=== PATIENT | male | born 1950 | race African-American/Black ===

== ENCOUNTER → 2021-06-09 | Day surgery (SDC) | payer OTHER ==
--- NOTE | 2021-06-09 13:04 | RAD REPORT ---
EXAM DESCRIPTION: US - Breast Core BX w/US Guidance - 06/09/2021 10:06 am CLINICAL HISTORY: ICD C50.929 COMPARISON: ultrasound May 2021 TECHNIQUE: The risks, benefits alternatives to the procedure were explained to the patient and infor med consent obtained. Skin, subcutaneous and breast tissues anesthetized with lidocaine. Under sonographic guidance, a 17 gauge needle was placed into the left breast mass. An 18 gauge needl e was then placed through this. Three 1 centimeter core specimens were obtained Tissue given to pathology. Subsequently a localizing clip was placed into the mass. Patient experienced no immediate complication IMPRESSION: Core biopsies of a left breast mass
== END ==
LOC: DS 10:00
PROVIDERS: ATTEND Internal Medicine
DX: C50.922 Malignant neoplasm of unspecified site of left male breast (principal); Z17.0 Estrogen receptor positive status [ER+]
CPT/HCPCS: 19083; 88305

== ENCOUNTER 2022-03-09 15:42 | Emergency (ER) | payer OTHER ==
--- OUTSIDE RECORDS SUMMARY | 2022-03-09 15:58 | XMS REPORT | Clinical Summary ---
:1950 Author Organization [facility] MD Lea [facility] Address [address] [place] [address] Care Team Providers Name Role Phone Bautista Bergeron MD Unavailable [phone] Sasha Brown MD Primary Care Provider Ann Rodriguez MD Unavailable [phone] Mara Wolf MD Unavailable Mack Osorio MD Primary Care Provider Allergies Active Allergy Reactions Severity Noted Date Comments Gabapentin Other (See Comments) 12/13/2016 dizzine ss dizziness Medications Medication Sig Dispensed Refills Start Date End Date Status aspirin 81 mg EC Take 81 mg by 0 Active tablet mouth daily. atorvastatin Take 1 tablet 0 05/23/2021 Ac tive (LIPITOR) 10 mg by mouth tablet daily. glimepiride Take by mouth 0 05/18/2021 Act annel (AMARYL) 4 mg daily. tablet Patient takes 1 tab in the AM and 1 tabs in PM olmesartan-hydroch Take 1 tablet 0 06/16/2021 Active lorothiazide by mouth (BENICAR HCT) daily. 20-12.5 mg per tablet ascorbic acid, Take 1,000 mg 0 A ctive vitamin C, by mouth (vitamin C) 1000 daily. mg tablet omeprazole Take 20 mg by 0 Activ e (PriLOSEC) 20 mg mouth every capsule morning before breakfast. TURMERIC ORAL Take 1 tablet 0 Ac tive by mouth daily. traMADol (ULTRAM) Take 1 tablet 30 tablet 0 07/13/2021 Active 50 mg (50 mg) by tabletIndications: mouth every 6 Infiltrating duct (six) hours carcinoma, NOS of as needed for overlapping lesion severe pain. of breast <Male; Left> tamoxifen Take 1 tablet 90 tablet 3 08/14/2021 Activ e (NOLVADEX) 20 mg (20 mg) by tabletIndications: mouth daily. 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; Left>; Oncology MD Mack Estrogen recept or positive status (ER+) 03/03/2022 Hospital Encounter Lab Jo, Infiltrat ing duct carcinoma, 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; Left>; MD Mack Estrogen recept or positive status (ER+) 03/03/2022 Travel 08/14/2021 Orders Only Breast Steph Augustine ptor positive status (ER+) (Primary Dx); Oncology COLT Jiang Infiltrating du ct carcinoma, 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; Left> 08/12/2021 Telemedicine Breast Medical Steph Osorio ptor positive status (ER+) (Primary Dx); Oncology MD Mack Infiltrating du ct carcinoma, 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; Left> 08/12/2021 Orders Only Breast Medical Abena Flores RPH 08/11/2021 Telephone Breast Medical Alessio, Oncology Kathleen Cornejo RN 08/03/2021 Hospital Encounter Kristie red, Lanny Dumont MD 07/30/2021 Hospital Encounter Dawood Gotti MD 07/29/2021 Telemedicine Breast Medical Jo, Infiltrating duct Oncology MD Mack carcinoma, NOS of overlapping les ion of breast <Male ; Left> 07/28/2021 Hospital Encounter Lab Chely, Infiltra ting duct Natalie, LEIGH carcinoma, NOS of overlapping les ion of breast <Male ; Left> 07/28/2021 Office Visit Breast Surgical Mara Wolf, Infiltratin g duct Oncology carcinoma, NOS of overlapping les ion of breast <Male ; Left> 07/28/2021 Travel 07/26/2021 Telephone Genetics Jose Miguel, Genetic Director Of Outreach LEIGH Llanes Emily M 07/26/2021 Orders Only Genetics Radha Wilson du ct M carcinoma, NOS of overlapping les ion of breast <Male ; Left> (Primary Dx) 07/24/2021 Orders Only Breast Medical Jo, Infiltrating duct carcinoma, 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; Left> (Primary Dx); Oncology MD Mack Estrogen recept or positive status (ER+) 07/16/2021 Telemedicine Integrative Medicine Jennifer Brown, Dietary counseling and surveillance (Primary Dx); Infiltrating du ct carcinoma, 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; Left>; Exercise counse ling; Lack of physica l exercise; Obese; Intentional akosua ght loss; Type 2 diabetes mellitus well controlled; Postoperative p ain 07/15/2021 Telephone Seymour, Discharge Call Flip Cocrhan RN 07/15/2021 Telephone Integrative Medicine Ileana Rodriguez RN 07/13/2021 Anesthesia Event Joan Hickman MD Speer, Barbra B., 07/13/2021 Surgery Mara Wolf, Left TOTAL MD MASTECTOMY 07/13/2021 Ancillary Procedure Nona Domingo MD 07/13/2021 Hospital Encounter Radiology Svitlana Washington PA 07/13/2021 Hospital Encounter Gastrointestinal Mara Wolf, Infi ltrating duct - Surgery carcinoma, NOS of 07/14/2021 overlapping les ion of breast <Male ; Left> (Primary Dx) 07/13/2021 Orders Only Tracey Hayden MD 07/13/2021 Travel 07/12/2021 POEM Appointments Anesthesiology Sasha Brown MD 07/12/2021 Clinical Support Atilio Washington, Suspected C OVID-19 (Primary Dx); Svitlana, PA Infiltrating duct carcinoma, NOS of over lapping lesion of breast <Male; Left> Ashley Johnson RN 07/12/2021 Ancillary Procedure Radiology Svitlana Washington PA 07/12/2021 Ancillary Procedure Radiology Felix Infiltra ting duct Svitlana, PA carcinoma, NOS of overlapping les ion of breast <Male ; Left> 07/12/2021 Travel 07/07/2021 Office Visit Breast Surgical Maryann Mara, Infiltratin g duct Oncology carcinoma, NOS of overlapping les ion of breast <Male ; Left> 07/07/2021 Travel 07/05/2021 Lab Requisition Venu Ruiz MD Witson, Anne S., MD 07/01/2021 Anesthesia Event Anesthesiology Tracey Jean NP 07/01/2021 POEM Appointments Anesthesiology Sasha Brown MD 07/01/2021 Consult Internal Medicine Jose Miguel, [place] for preprocedural cardiovascular examination (Primary Dx); LEIGH Padilla Hypertension; Carlyle Scott, Dyslipidemia; Type 2 diabetes mellitus with hyperglycemia; Renal insuffici ency; Infiltrating du ct carcinoma, 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; Left> 07/01/2021 Travel 06/29/2021 Ancillary Procedure Radiology Sasha Brown MD 06/29/2021 Ancillary Procedure Radiology Sasha Brown MD 06/29/2021 Ancillary Procedure Radiology Sasha Brown MD 06/29/2021 Ancillary Procedure Radiology Sasha Brown MD 06/29/2021 Ancillary Procedure Radiology Sasha Brown MD 06/29/2021 Orders Only Breast Surgical Felix, Infiltrating duct Oncology Svitlana, PA carcinoma, NOS of overlapping les ion of breast <Male ; Left> (Primary Dx) 06/29/2021 Prep for Surgery Breast Surgical Felix, Infiltra ting duct Oncology Svitlana, PA carcinoma, NOS of overlapping les ion of breast <Male ; Left> (Primary Dx) 06/28/2021 Ancillary Procedure Radiology Chivo Gillespieg duct Valerie, MENTAL HEALTH PROGRAM MANAGER carcinoma, NOS of overlapping les ion of breast <Male ; Left> 06/28/2021 Hospital Encounter Lab Gillespie, Infiltrat ing duct Valerie, MENTAL HEALTH PROGRAM MANAGER carcinoma, NOS of overlapping les ion of breast <Male ; Left> 06/28/2021 Office Visit Breast Medical Sasha Brown Infiltrating duct Oncology MD Nahun carcinoma, NOS of Michael, overlapping les ion Ann of breast <Male ; MD Hernan Left> (Primary Dx) 06/28/2021 Office Visit Breast Medical Sasha Brown Infiltrating duct carcinoma, 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; Left> (Primary Dx); Oncology MD Nahun Estrogen receptor positive status (ER+) Mack Osorio MD 06/28/2021 Office Visit Breast Medical Sasha Brown Infiltrating duct Oncology MD Nahun carcinoma, NOS of Mara Wolf, manjula farrar MD of breast <Male ; Left> (Primary Dx) 06/28/2021 Office Visit Breast Medical Sasha Brown Infiltrating duct Oncology MD Nahun carcinoma, NOS of Gillespie, overlapping les ion LEIGH Padilla of breast <Male ; Left> (Primary Dx) 06/28/2021 Travel 06/25/2021 Orders Only Breast Surgical Mara Wolf, Oncology 06/23/2021 Ancillary Procedure Radiology Sasha Brown MD 06/23/2021 Ancillary Procedure Radiology Sasha Brown MD 06/23/2021 Ancillary Procedure Radiology Sasha Brown MD 06/23/2021 Hospital Encounter Radiology Gillespie, Infiltrat ing duct Valerie, MENTAL HEALTH PROGRAM MANAGER carcinoma, NOS of overlapping les ion of breast <Male ; Left> 06/23/2021 Hospital Encounter Radiology Gillespie, Infiltrat ing duct Valerie, MENTAL HEALTH PROGRAM MANAGER carcinoma, NOS of overlapping les ion of breast <Male ; Left> 06/23/2021 NPR Patient Access Sasha Brown MD 06/23/2021 Travel 06/17/2021 Orders Only Breast Medical Jose Miguel, Infiltrating duct Oncology Valerie MENTAL HEALTH PROGRAM MANAGER carcinoma, NOS of overlapping les ion of breast <Male ; Left> (Primary Dx) 06/16/2021 Travel after 03/09/2021 Immunizations Name Administration Dates Next Due Pfizer SARS-CoV-2 Vaccination (Purple Cap) 03/29/2021 Surgical History Surgery Date Site/Laterality Comments COLONOSCOPY CHOLECYSTECTOMY KNEE SURGERY 07/03/1999 - Left arthroscopic 07/02/2000 DE MASTECTOMY, SIMPLE, 07/13/2021 Breast/Left Procedure : Left TOTAL COMPLETE MASTECTOMY; Surg jose: Mara Wolf MD; Location: MAIN OR; Service : BREAST DE INTRAOPERATIVE SENTINEL 07/13/2021 Left Proce dure: Left LYMPH NODE ID W DYE INTRAOPERATI VE LYMPHATIC INJECTION MAPPING; Surgeon : Mara Wolf MD; Locatio n: MAIN OR; Service: ABRIL AST DE BX/REMV,LYMPH NODE,DEEP 07/13/2021 Axilla/Left Proce dure: SENTINEL NODE AXILL BIOPSY - Left AX ILLA; Surgeon: Mara Wolf MD; Location: MAIN O R; Service: BREAST Medical History Medical History Date Comments Hypertension 1994 Hyperlipidemia Fatty liver Diabetes mellitus 1999 Herpes zoster Breast cancer 06/2021 left Body mass index (BMI) 36.0-36.9, adult 06/28/2021 Renal insufficiency 2020 pt was referred to a buhr dresser and was reportedly t old that his PCP could monitor and di d not need to f/u again Ulcer pt reports that he h ad "atrophie rebekah" of BLE. pt reports that he had wound care. thes e resolved that vein surgery 2016 Family History Medical History Relation Name Comments Cirrhosis Brother 1 Casey COD Cirrhosis Brother 2 paola COD Coronary artery disease Brother 3 melba COD at 5 3 Coronary artery disease Brother 4 homer COD in h is 60s Lung cancer Brother 5 Yoni Jan smoker Lung cancer Brother 6 María Hypertension Father Yoni Pancreatic cancer Father Yoni Diabetes Mother Hypertension Mother Stroke Mother COD at 94 Throat cancer Paternal Cousin Not a smoker -Unknown cancer Paternal Uncle 1 older Breast cancer Neg Hx Ovarian cancer Neg Hx VTE Neg Hx Relation Name Status Comments Brother 1 Casey (Age 50s) liver Brother 2 paola (Age 60s) Brother 3 melba (Age 50s) Brother 4 homer (Age 60s) Brother 5 Yoni Jan (Age 49) Brother 6 María (Age 77) Father Yoni (Age 86) Grandchild 1 Alive Grandchild 2 Alive Maternal Aunt 1 d. >50 Maternal Aunt 2 d. >50 Maternal Grandfather (Age 70s) Maternal Grandmother (Age 89) Maternal Uncle d. >50 Mother (Age 94) d. stroke Niece/Nephew 1 Alive Niece/Nephew 2 Alive Niece/Nephew 3 Alive Niece/Nephew 4 Alive Niece/Nephew 5 Alive Niece/Nephew 6 Alive Niece/Nephew 7 Alive Paternal Aunt 1 d. >50 Paternal Aunt 2 d. >50 Paternal Cousin Paternal Grandfather Paternal Grandmother (Age 89) Paternal Uncle 1 d. >50 Paternal Uncle 2 d. >50 Paternal Uncle 3 d. >50 Paternal Uncle 4 d. >50 Sister 1 Alive Sister 2 Alive Son 1 Alive Son 2 Alive Social History Tobacco Use Types Packs/Day Years Used Date Never Smoker 0 0 Smokeless Tobacco: Never Used Alcohol Use Standard Drinks/Week Comments Never 0 (1 standard drink = 0.6 oz pure alcoho l) Education Answer Date Recorded What is the highest level of school Bachelor's degree (e.g., BA, AB, 06/28/2021 you have completed or the highest BS) degree you have received? Sex Assigned at Date Recorded Male 06/18/2021 5:45 PM [employer] Job Start Date Occupation Industry Not on file Not on file Not on file COVID-19 Exposure Response Date Recorded In the last 10 days, have you been in contact with No / Unsu re 03/03/2022 9:50 AM CDT someone who was confirmed or suspected to have Coronavirus/COVID-19? Obstetrics History Last Filed Vital Signs Vital Sign Reading Time Taken Comments Blood Pressure 143/81 03/03/2022 11:36 AM CDT Pulse 77 03/03/2022 11:36 AM CDT Temperature 36.9 C (98.4 F) 03/03/2022 11:36 AM CDT Respiratory Rate 18 03/03/2022 11:36 AM CDT Oxygen Saturation 98% 07/28/2021 9:50 AM [employer] Inhaled Oxygen Concentration - - Weight 130 kg (286 lb 9.6 oz) 03/03/2022 11:34 AM CDT Height 189.5 cm (6' 2.61") 07/13/2021 10:09 PM [employer] Body Mass Index 36.2 07/13/2021 10:09 PM [employer] Plan of Treatment Health Maintenance Due Date Last Done Comments COVID-19 Vaccination (4 - Booster 06/28/2021 03/29/2021, , for Pfizer series) 07/30/2020 Procedures Procedure Name Priority Date/Time Associated Comments Diagnosis FRACTIONATED BILIRUBIN Routine 03/03/2022 9:[address] Results for this AM CDT carcinoma, NOS of procedure are in overlapping lesion the resul ts of breast <Male; section. Left> Estrogen receptor positive status (ER+) TOTAL PROTEIN Routine 03/03/2022 9:35 [address]fil[address]ating duct Result s for this AM CDT carcinoma, NOS of procedure are in overlapping lesion the resul ts of breast <Male; section. Left> Estrogen receptor positive status (ER+) ASPARTATE Routine 03/03/2022 9:35 Infiltrating duct Results for this AMINOTRANSFERASE AM CDT carcinoma, NOS of proced ure are in overlapping lesion the resul ts of breast <Male; section. Left> Estrogen receptor positive status (ER+) ALANINE AMINOTRANSFERASE Routine 03/03/2022 9:35 Infiltrating duct Results for this AM CDT carcinoma, NOS of procedure are in overlapping lesion the resul ts of breast <Male; section. Left> Estrogen receptor positive status (ER+) ALKALINE PHOSPHATASE Routine 03/03/2022 9:35 Infiltrating duct Results for this AM CDT carcinoma, NOS of procedure are in overlapping lesion the resul ts of breast <Male; section. Left> Estrogen receptor positive status (ER+) ALBUMIN LEVEL Routine 03/03/2022 9:35 Infiltrating duct Result s for this AM CDT carcinoma, NOS of procedure are in overlapping lesion the resul ts of breast <Male; section. Left> Estrogen receptor positive status (ER+) CALCIUM LEVEL TOTAL Routine 03/03/2022 9:35 Infiltrating duct Results for this AM CDT carcinoma, NOS of procedure are in overlapping lesion the resul ts of breast <Male; section. Left> Estrogen receptor positive status (ER+) .GLOMERULAR FILTRATION Routine 03/03/2022 9:[address] Results for this RATE AM CDT carcinoma, NOS of procedure are in overlapping lesion the resul ts of breast <Male; section. Left> Estrogen receptor positive status (ER+) SERUM CREATININE Routine 03/03/2022 9:35 Infiltrating duct Res ults for this AM CDT carcinoma, NOS of procedure are in overlapping lesion the resul ts of breast <Male; section. Left> Estrogen receptor positive status (ER+) ELECTROLYTE PANEL Routine 03/03/2022 9:35 [address]fil[address] duct Re sults for this AM CDT carcinoma, NOS of procedure are in overlapping lesion the resul ts of breast <Male; section. Left> Estrogen receptor positive status (ER+) BLOOD UREA NITROGEN Routine 03/03/2022 9:35 [address] duct Results for this AM CDT carcinoma, NOS of procedure are in overlapping lesion the resul ts of breast <Male; section. Left> Estrogen receptor positive status (ER+) GLUCOSE LEVEL Routine 03/03/2022 9:35 Infiltrating duct Result s for this AM CDT carcinoma, NOS of procedure are in overlapping lesion the resul ts of breast <Male; section. Left> Estrogen receptor positive status (ER+) MANUAL DIFFERENTIAL Routine 03/03/2022 9:35 [address] duct Results for this AM CDT carcinoma, NOS of procedure are in overlapping lesion the resul ts of breast <Male; section. Left> Estrogen receptor positive status (ER+) Results CBC Routine 03/03/2022 9:35 [address] duct Results for this AM CDT carcinoma, NOS of procedure are in overlapping lesion the resul ts of breast <Male; section. Left> Estrogen receptor positive status (ER+) LIPID PANEL Routine 03/03/2022 9:35 [address] duct Results for this AM CDT carcinoma, NOS of procedure are in overlapping lesion the resul ts of breast <Male; section. Left> Estrogen receptor positive status (ER+) VITAMIN D 25 HYDROXY Routine 03/03/2022 9:35 [address] duct Results for this LEVEL AM CDT carcinoma, NOS of procedure are in overlapping lesion the resul ts of breast <Male; section. Left> Estrogen receptor positive status (ER+) THYROID STIMULATING Routine 03/03/2022 9:35 [address] duct Results for this HORMONE AM CDT carcinoma, NOS of procedure are in overlapping lesion the resul ts of breast <Male; section. Left> Estrogen receptor positive status (ER+) COMPREHENSIVE METABOLIC Routine 03/03/2022 9:35 Infil[address] d uct PANEL AM CDT carcinoma, 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; Left> Estrogen receptor positive status (ER+) COMPLETE BLOOD COUNT W/ Routine 03/03/2022 9:35 Infiltrating d uct DIFFERENTIAL AM CDT carcinoma, 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; Left> Estrogen receptor positive status (ER+) ZINVITAE Routine 07/28/2021 11:44 Infiltrating duct Result s for this AM [employer] carcinoma, NOS of procedure are in overlapping lesion the resul ts of breast <Male; section. Left> AP ONCOTYPEDX (SEND OUT) Routine 07/24/2021 9:42 Infiltrating duct Results for this MATERIAL REQUEST AM [employer] carcinoma, NOS of proced ure are in overlapping lesion the resul ts of breast <Male; section. Left> Estrogen receptor positive status (ER+) AP IHC HER2/ELIAS MATERIAL Routine 07/24/2021 9:42 Infiltrating duct REQUEST AM [employer] carcinoma, 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; Left> Estrogen receptor positive status (ER+) AP IHC KI-67 MATERIAL Routine 07/24/2021 9:42 Infiltrating andre t REQUEST AM [employer] carcinoma, 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; Left> Estrogen receptor positive status (ER+) POC GLUCOSE SCREEN Routine 07/13/2021 9:41 Result s for this PM [employer] procedure are i n the results section. POC GLUCOSE SCREEN Routine 07/13/2021 5:18 Result s for this PM [employer] procedure are i n the results section. PATHOLOGY SURGICAL Routine 07/13/2021 3:36 [address]fil[address] duct R esults for this INTERPRETATION PM [employer] carcinoma, NOS of procedur e are in overlapping lesion the resul ts of breast <Male; section. Left> HP CG HER2 FISH Routine 07/13/2021 2:43 INTERPRETATION AND PM [employer] REPORT HP CYTOGENETICS BLOOD Routine 07/13/2021 2:43 Res ults for this COLLECTION PM [employer] procedure are i n the results section. PERIPHERAL BLOCK Routine 07/13/2021 1:35 Results for this PM [employer] procedure are i n the results section. SENTINEL NODE BIOPSY - 07/13/2021 1:[address] AXILLA PM [employer] carcinoma, 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; Left> Special Needs [email or web address] INTRAOPERATIVE LYMPHATIC 07/13/2021 1:29 PM [employer] Infilt rating duct carcinoma, MAPPING 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; Left> Special Needs [email or web address] TOTAL MASTECTOMY 07/13/2021 1:29 PM [employer] Infiltrating d uct carcinoma, 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; Left> Special Needs [email or web address] INTRAOPERATIVE US Routine 07/13/2021 1:05 Results for this PM [employer] procedure are i n the results section. BREAST SPECIMEN Routine 07/13/2021 12:15 Results for this RADIOGRAPH PM [employer] procedure are i n the results section. POC GLUCOSE SCREEN Routine 07/13/2021 11:09 Resul ts for this AM [employer] procedure are i n the results section. NM LYMPHOSCINTIGRAPHY Routine 07/12/2021 11:[address] Results for this BREAST LYMPHOSEEK AM [employer] carcinoma, NOS of proce dure are in overlapping lesion the resul ts of breast <Male; section. Left> MD COVID-19 (SARS-COV-2) Routine 07/12/2021 9:14 Suspected COV ID-19 Results for this PCR ASYMPTOMATIC AM [employer] procedure a re in the results section. FRACTIONATED BILIRUBIN STAT 06/29/2021 11:03 R esults for this AM [employer] procedure are i n the results section. TOTAL PROTEIN STAT 06/29/2021 11:03 Results fo r this AM [employer] procedure are i n the results section. ASPARTATE STAT 06/29/2021 11:03 Results for this AMINOTRANSFERASE AM [employer] procedure a re in the results section. ALANINE AMINOTRANSFERASE STAT 06/29/2021 11:03 Results for this AM [employer] procedure are i n the results section. ALKALINE PHOSPHATASE STAT 06/29/2021 11:03 Res ults for this AM [employer] procedure are i n the results section. ALBUMIN LEVEL STAT 06/29/2021 11:03 Results fo r this AM [employer] procedure are i n the results section. CALCIUM LEVEL TOTAL STAT 06/29/2021 11:03 Resu lts for this AM [employer] procedure are i n the results section. .GLOMERULAR FILTRATION STAT 06/29/2021 11:03 R esults for this RATE AM [employer] procedure are i n the results section. SERUM CREATININE STAT 06/29/2021 11:03 Results for this AM [employer] procedure are i n the results section. ELECTROLYTE PANEL STAT 06/29/2021 11:03 Result s for this AM [employer] procedure are i n the results section. BLOOD UREA NITROGEN STAT 06/29/2021 11:03 Resu lts for this AM [employer] procedure are i n the results section. GLUCOSE LEVEL STAT 06/29/2021 11:03 Results fo r this AM [employer] procedure are i n the results section. APTT STAT 06/29/2021 11:03 Results for this AM [employer] procedure are i n the results section. PROTHROMBIN TIME STAT 06/29/2021 11:03 Results for this AM [employer] procedure are i n the results section. MANUAL DIFFERENTIAL Routine 06/28/2021 4:[address] Results for this PM [employer] DAMAGE [employer]IS[employer] carcinoma, NOS of procedure are in overlapping lesion the resul ts of breast <Male; section. Left> Results CBC Routine 06/28/2021 4:[address] Results for this PM AUT[employer] DAMAGE APPR[employer]ISER carcinoma, NOS of procedure are in overlapping lesion the resul ts of breast <Male; section. Left> FRACTIONATED BILIRUBIN Routine 06/28/2021 4:[address] Results for this PM [employer] DAMAGE [employer]ISER carcinoma, NOS of procedure are in overlapping lesion the resul ts of breast <Male; section. Left> TOTAL PROTEIN Routine 06/28/2021 4:[address] duct Result s for this PM [employer] DAMAGE [employer]ISER carcinoma, NOS of procedure are in overlapping lesion the resul ts of breast <Male; section. Left> ASPARTATE Routine 06/28/2021 4:[address] duct Results for this AMINOTRANSFERASE PM [employer] DAMAGE [employer]PR[employer]ISER carcinoma, NOS of proced ure are in overlapping lesion the resul ts of breast <Male; section. Left> ALANINE AMINOTRANSFERASE Routine 06/28/2021 4:20 [address]ating duct Results for this PM AUTO DAMAGE APPRAISER carcinoma, NOS of procedure are in overlapping lesion the resul ts of breast <Male; section. Left> ALKALINE PHOSPHATASE Routine 06/28/2021 4:20 [address] duct Results for this PM AUTO DAMAGE APPRAISER carcinoma, NOS of procedure are in overlapping lesion the resul ts of breast <Male; section. Left> ALBUMIN LEVEL Routine 06/28/2021 4:20 Infil[address]ating duct Result s for this PM AUT[employer] DAMAGE APPRAISER carcinoma, NOS of procedure are in overlapping lesion the resul ts of breast <Male; section. Left> CALCIUM LEVEL TOTAL Routine 06/28/2021 4:20 [address] duct Results for this PM AUTO DAMAGE APPRAISER carcinoma, NOS of procedure are in overlapping lesion the resul ts of breast <Male; section. Left> .GLOMERULAR FILTRATION Routine 06/28/2021 4:[address] Results for this RATE PM AUT[employer] DAMAGE APPR[employer]ISER carcinoma, NOS of procedure are in overlapping lesion the resul ts of breast <Male; section. Left> SERUM CREATININE Routine 06/28/2021 4:20 [address] duct Res ults for this PM [employer] DAMAGE APPRAISER carcinoma, NOS of procedure are in overlapping lesion the resul ts of breast <Male; section. Left> ELECTROLYTE PANEL Routine 06/28/2021 4:20 Infiltrating duct Re sults for this PM AUTO DAMAGE APPRAISER carcinoma, NOS of procedure are in overlapping lesion the resul ts of breast <Male; section. Left> BLOOD UREA NITROGEN Routine 06/28/2021 4:20 Infil[address]ating duct Results for this PM AUTO DAMAGE APPRAISER carcinoma, NOS of procedure are in overlapping lesion the resul ts of breast <Male; section. Left> GLUCOSE LEVEL Routine 06/28/2021 4:20 Infil[address]ating duct Result s for this PM AUTO DAMAGE APPRAISER carcinoma, NOS of procedure are in overlapping lesion the resul ts of breast <Male; section. Left> COMPLETE BLOOD COUNT W/ Routine 06/28/2021 4:20 Infiltrating d uct DIFFERENTIAL PM AUTO DAMAGE APPRAISER carcinoma, 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; Left> COMPREHENSIVE METABOLIC Routine 06/28/2021 4:20 Infiltrating d uct PANEL PM AUTO DAMAGE APPRAISER carcinoma, 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; Left> HEMOGLOBIN A1C Routine 06/28/2021 4:[address] duct Resul ts for this PM AUTO DAMAGE APPRAISER carcinoma, NOS of procedure are in overlapping lesion the resul ts of breast <Male; section. Left> XR CHEST 2 VW Routine 06/28/2021 3:50 Infiltrating duct Result s for this PM AUTO DAMAGE APPRAISER carcinoma, NOS of procedure are in overlapping lesion the resul ts of breast <Male; section. Left> EKG, 12-LEAD (SCHEDULED) Routine 06/28/2021 Infiltrating andre t carcinoma, 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; Left> US CHEST Routine 06/23/2021 9:52 Infiltrating duct Results for this AM AUTO DAMAGE APPRAISER carcinoma, NOS of procedure are in overlapping lesion the resul ts of breast <Male; section. Left> US BREAST LIMITED RIGHT Routine 06/23/2021 9:52 Infiltrating d uct Results for this AM AUTO DAMAGE APPRAISER carcinoma, NOS of procedure are in overlapping lesion the resul ts of breast <Male; section. Left> US BREAST COMPLETE LEFT Routine 06/23/2021 9:52 Infiltrating d uct Results for this AM AUTO DAMAGE APPRAISER carcinoma, NOS of procedure are in overlapping lesion the resul ts of breast <Male; section. Left> MAMMO DIGITAL DIAGNOSTIC Routine 06/23/2021 8:[address] Results for this BILATERAL W TERENCE AM AUTO DAMAGE APPRAISER carcinoma, NOS of proced ure are in overlapping lesion the resul ts of breast <Male; section. Left> OSI US BREAST BIOPSY Routine 06/09/2021 7:11 Cancer Resu lts for this AM AUTO DAMAGE APPRAISER procedure are i n the results section. PATHOLOGY OUTSIDE Routine 06/09/2021 Results fo r this INTERPRETATION procedure are in the results section. OSI US BREAST Routine 06/01/2021 7:11 Cancer Results for this AM AUTO DAMAGE APPRAISER procedure are i n the results section. OSI MAMMO BILATERAL Routine 06/01/2021 7:11 Cancer Resul ts for this AM AUTO DAMAGE APPRAISER procedure are i n the results section. after 03/09/2021 Results (ABNORMAL) .Serum Creatinine (03/03/2022 9:35 AM CDT)Only the most recent of3 resultswithin the time period is included. athologist Signature Creatinine 1.65 (H) 0.67 - 1.17 [facility] mg/dL Comment: Testing Performed at [facility], [address] [place] [address], [address], [place] [address] Specimen Anatomical Collection Method Collection Time Receive d Time (Source) Location / / Volume Laterality Blood 03/03/2022 9:35 AM 9:51 CDT AM CDT Mack Osorio MD LAB BLOOD ORDERABLES Performing Organization Address City/State/ZIP Code Phon e Number [address] [place] [address] [address] .CBC (03/03/2022 9:35 AM CDT)Only the most recent of2 resultswithin the time period is included. athologist Signature WBC 4.5 4.0 - 11.0 [facility] K/uL RBC 4.90 4.50 - 6.00 [facility] M/uL Hgb 14.5 14.0 - 18.0 [facility] gm/dL Comment: As part of CBC or as an individ ual orderable testing performed at [facility] [employer] [facility], [address] [place] [address] , [address], [place] [address] Hct 43.1 40.0 - 54.0 % [facility] Comment: As part of CBC or as an individ ual orderable testing performed at [facility], [address] [place] [address] , [address], [place] [address] MCV 88 82 - 98 fL [facility] MCH 29.6 27.0 - 31.0 pg [facility] MCHC 33.6 31.0 - 36.0 gm/dL [facility] RDW-SD 39.9 35.1 - 46.3 fL [facility] RDW-CV 12.4 12.0 - 15.5 % [facility] Platelet count 199 140 - 440 K/uL [facility] Comment: As part of CBC or as an individ ual orderable testing performed at [facility], [address] [place] [address] , [address], [place] [address] MPV 10.2 4.0 - 10.4 fL [facility] INRBC 0.0 <=0.0 % [facility] Comment: The INRBC (instrument NRBC) value reflec ts the enumeration of nucleated red blood cells contained i n a 200uL sample of whole blood analyzed by the instrumen t. This value may differ from the NRBC value reported in a manual differential, which is based on a 100 cell differentia l. As part of CBC testing performed at [address], [address], [place] [address] Specimen Anatomical Collection Method Collection Time Receive d Time (Source) Location / / Volume Laterality Blood 03/03/2022 9:35 AM 9:41 CDT AM CDT Mack Osorio MD LAB BLOOD ORDERABLES Performing Organization Address City/State/ZIP Code Phon e Number [address] [place] [address] [address] (ABNORMAL) Glomerular Filtration Rate (03/03/2022 9:35 AM CDT)Only the most recent of3 resultswithin the time period is included. athologist Signature eGFR-AA 48 (L) >=60 [facility] mL/min/1.73 sq. m Comment: Normal eGFR >= 60 mL/min/1.73 m2 Note: The eGFR is calculated using the C KD-EPI equation. The eGFR declines with age. eGFR <60 mL/min/1.73 m2 is considered as "decreased". This equation should only be used for patients 18 and older. According to the National Kidney Found[employer] ion's Kidney Disease Outcome Quality Initiative (KDOQI) classification and 2012 Kidney Disease Improving Global Outcomes (KDIGO) Clinical Practice Guideline, the stage of CKD should be categorized based on estimated GFR. Stage Description GFR mL/min/1. 73 m2 1 Normal or high GFR >=90 2 Mildly decreased GFR 60-89 3a Mildly to moderately decreased GFR 45-59 3b Moderately to severely decreased GFR 30-44 4 Severely decreased GFR 15-29 5 Kidney failure <15 Testing Performed at [facility] [employer] [facility], [address] [facility], [address], [place] [address] eGFR-JOSEPH 41 (L) >=60 mL/min/1.73 sq. m [facility] Comment: Normal eGFR >= 60 mL/min/1.73 m2 Note: The eGFR is calculated using the C KD-EPI equation. The eGFR declines with age. eGFR <60 mL/min/1.73 m2 is considered as "decreased". This equation should only be used for patients 18 and older. According to the National Kidney Foundat ion's Kidney Disease Outcome Quality Initiative (KDOQI) classification and 2012 Kidney Disease Improving Global Outcomes (KDIGO) Clinical Practice Guideline, the stage of CKD should be categorized based on estimated GFR. Stage Description GFR mL/min/1. 73 m2 1 Normal or high GFR >=90 2 Mildly decreased GFR 60-89 3a Mildly to moderately decreased GFR 45-59 3b Moderately to severely decreased GFR 30-44 4 Severely decreased GFR 15-29 5 Kidney failure <15 Testing Performed at [facility] [employer] [facility], [facility] [facility], [address], [place] [address] Specimen Anatomical Collection Method Collection Time Receive d Time (Source) Location / / Volume Laterality Blood 03/03/2022 9:35 AM 9:51 CDT AM CDT Mack Osorio MD LAB BLOOD ORDERABLES Performing Organization Address City/State/ZIP Code Phon e Number [address] [place] [address] [address] (ABNORMAL) Fractionated Bilirubin (03/03/2022 9:35 AM CDT)Only the most recent of3 resultswithin the time period is included. athologist Signature Bili Total 1.3 (H) <=1.2 mg/dL [facility] Comment: Indocyanine Green (ICG) may cause falsel y elevated bilirubin results. Total and direct bilirubin must not be measured from samples containing indocyanine green. False elevation of total bilirubin can b e seen in patients with IgG concentrations above 28 g/L. Testing Performed at [facility] [employer] [facility], [facility], [address], [place] [address] Bili Direct 0.2 <=0.3 mg/dL [facility] Comment: Indocyanine Green (ICG) may cause falsel y elevated bilirubin results. Total and direct bilirubin must not be measured from samples containing indocyanine green. Testing Performed at [facility] Lab [employer] [facility], [address] [facility], [address], [place] [address] Bili Indirect 1.1 (H) 0.0 - 0.9 mg/dL [facility] Comment: Testing Performed at [facility] Lab Am bulatory Care [facility], [address] [facility], [address], [place] [address] Specimen Anatomical Collection Method Collection Time Receive d Time (Source) Location / / Volume Laterality Blood 03/03/2022 9:35 AM 2 9:51 CDT AM CDT Mack Osorio MD LAB BLOOD ORDERABLES Performing Organization Address City/[facility]/ZIP Code Phon e Number [facility] [address] [facility] [place] [address] [address] Vitamin D 25OH (03/03/2022 9:35 AM CDT) athologist Signature Vitamin D 25 OH 30 30 - 100 [facility] ng/mL [facility] Comment: Reference Range: Deficiency: <10 ng/mL Insufficiency: 10-29 ng/mL Sufficiency: 30-100 ng/mL Potential toxicity: >100 ng/mL Specimen Anatomical Collection Method Collection Time Receive d Time (Source) Location / / Volume Laterality Blood 03/03/2022 9:35 AM 2 CDT 10:01 AM CDT Mack Osorio MD LAB BLOOD ORDERABLES Performing Organization Address City/State/ZIP Code Phon e Number [facility] CANCER Unless otherwise noted, [place] [address] CENTER all lab tests performed by: Division of Pathology and Laboratory Medicine [facility] (ABNORMAL) Differential (03/03/2022 9:35 AM CDT)Only the most recent of2 results within the time period is included. athologist Signature Neutrophil % 47.1 42.0 - 66.0 [facility] % Comment: As part of Differential perform ed at [facility] Lab [employer] [facility], [address] [facility], [address], [place] [address] Lymphocyte % 36.8 24.0 - 44.0 % [facility] Monocyte % 10.0 (H) 2.0 - 7.0 % [facility] Eosinophil % 3.8 1.0 - 4.0 % [facility] Basophil % 1.6 (H) 0.0 - 1.0 % [facility] IGRE % 0.7 (H) 0.0 - 0.4 % [facility] Comment: IGRE % count includes Metamyelocytes, My elocytes, and Promyelocytes. As part of Differential performed at [facility] Lab [facility], [address] [facility], [address], [place] [address] Neutrophil Abs 2.11 1.70 - 7.30 K/uL [facility] Lymphocyte Abs 1.65 1.00 - 4.80 K/uL [facility] Monocyte Abs 0.45 0.08 - 0.70 K/uL [facility] Eosinophil Abs 0.17 0.04 - 0.40 K/uL [facility] Basophil Abs 0.07 0.00 - 0.10 K/uL [facility] IG Abs 0.03 0.00 - 0.04 K/uL [facility] Specimen Anatomical Collection Method Collection Time Receive d Time (Source) Location / / Volume Laterality Blood 03/03/2022 9:35 AM 2 9:41 CDT AM CDT Mack Osorio MD LAB BLOOD ORDERABLES Performing Organization Address City/State/ZIP Code Phon e Number [facility] [address] [place] [address]. [place] [address] [address] BUN (03/03/2022 9:35 AM CDT)Only the most recent of3 resultswithin the time period is included. P athologist Signature BUN 17 6 - 23 mg/dL [facility] Comment: Testing Performed at [facility] Lab [facility], [address] [facility], [address], [place] [address] Specimen Anatomical Collection Method Collection Time Receive d Time (Source) Location / / Volume Laterality Blood 03/03/2022 9:35 AM 2 9:51 CDT AM CDT Mack Osorio MD LAB BLOOD ORDERABLES Performing Organization Address [facility]/ZIP Code Phon e Number [facility] [address] [facility] [place] [address] [address] ALT (03/03/2022 9:35 AM CDT)Only the most recent of3 resultswithin the time period is included. P athologist Signature ALT 32 <=41 U/L [facility] Comment: Testing Performed at [facility] Lab Am bulatory Care [facility], [address] [facility], [address], [place] [address] Specimen Anatomical Collection Method Collection Time Receive d Time (Source) Location / / Volume Laterality Blood 03/03/2022 9:35 AM 2 9:51 CDT AM CDT Mack Osorio MD LAB BLOOD ORDERABLES Performing Organization Address [facility] Phon e Number [facility] [address] [facility] [place] [address] [address] Aspartate Aminotransferase (03/03/2022 9:35 AM CDT)Only the most recent of3 resultswithin the time period is included. athologist Signature AST 28 <=40 U/L [facility] Comment: Testing Performed at [facility] Lab Am bulatory Care [facility], [address] [facility], [address], [place] [address] Specimen Anatomical Collection Method Collection Time Receive d Time (Source) Location / / Volume Laterality Blood 03/03/2022 9:35 AM 2 9:51 CDT AM CDT Mack Osorio MD LAB BLOOD ORDERABLES Performing Organization Address City/[facility] Phon e Number [facility] [address] [facility] [place] [address] [address] TSH (03/03/2022 9:35 AM CDT) athologist Signature TSH 2.27 0.27 - 4.20 [facility] mcunit/mL Comment: Note: New Methodology and Reference Ra nge change effective 10/19/2017 at 1400 Testing Performed at [facility] Lab [employer] [facility], [address] [facility], [address], [place] [address] Specimen Anatomical Collection Method Collection Time Receive d Time (Source) Location / / Volume Laterality Blood 03/03/2022 9:35 AM 2 9:51 CDT AM CDT Mack Osorio MD LAB BLOOD ORDERABLES Performing Organization Address [facility] Phon e Number [facility] [address] [facility] [place] [address] [address] Total Protein (03/03/2022 9:35 AM CDT)Only the most recent of3 resultswithin the time period is included. athologist Signature Total Protein 7.6 6.4 - 8.3 [facility] g[facility] Comment: Testing Performed at B Lab Am [facility], [address] [facility], [address], [place] [address] Specimen Anatomical Collection Method Collection Time Receive d Time (Source) Location / / Volume Laterality Blood 03/03/2022 9:35 AM 2 9:51 CDT AM CDT Mack Osorio MD LAB BLOOD ORDERABLES Performing Organization Address [facility] e Number [facility] [address] [facility] [place] [address] [address] Alkaline Phosphatase (03/03/2022 9:35 AM CDT)Only the most recent of3 results within the time period is included. athologist Signature Alk Phos 54 40 - 129 U/L [facility] Comment: Testing Performed at [facility] Lab Am [facility] Care [facility], [address] [facility], [address], [place] [address] Specimen Anatomical Collection Method Collection Time Receive d Time (Source) Location / / Volume Laterality Blood 03/03/2022 9:35 AM 2 9:51 CDT AM CDT Mack Osorio MD LAB BLOOD ORDERABLES Performing Organization Address [facility] Phon e Number [facility] [address] [facility] [place] [address] [address] (ABNORMAL) Glucose Level (03/03/2022 9:35 AM CDT)Only the most recent of3 resultswithin the time period is included. P athologist Signature Glucose Level 146 (H) 70 - 99 [facility] mg/dL Comment: Effective 01/27/16, the glucose reference intervals have been updated based on [place] [employer] guidelines (Standards of Medical Care in Diabetes 2016. Diabetes Care 2016; 39: S13-S22). Fasting blood glucose: Normal: 70-99 mg/dL Impaired fasting glucose (increased risk for diabetes or pre-diabetes): 100- 125 mg/dL Diabetes mellitus: >/=126 mg/dL Random blood glucose: Normal: 70-199 mg/dL Note: Random glucose >100 mg/dL is assoc iated with increased risk for diabetes Testing Performed at [facility] [employer] [facility], [address] [facility], [address], [place] [address] Specimen Anatomical Collection Method Collection Time Receive d Time (Source) Location / / Volume Laterality Blood 03/03/2022 9:35 AM 9:51 CDT AM CDT Mack Osorio MD LAB BLOOD ORDERABLES Performing Organization Address City/[facility] e Number [facility] [address] [facility] [place] [address] [address] Calcium Level (03/03/2022 9:35 AM CDT)Only the most recent of3 resultswithin the time period is included. P athologist Signature Calcium Lvl 9.8 8.4 - 10.2 [facility] mg/dL Comment: Testing Performed at [facility] Lab [facility], [address] [facility], [address], [place] [address] Specimen Anatomical Collection Method Collection Time Receive d Time (Source) Location / / Volume Laterality Blood 03/03/2022 9:35 AM 2 9:51 CDT AM CDT Mack Osorio MD LAB BLOOD ORDERABLES Performing Organization Address City/[facility] e Number [facility] [address] [facility] [place] [address] [address] Albumin Level (03/03/2022 9:35 AM CDT)Only the most recent of3 resultswithin the time period is included. P athologist Signature Albumin Lvl 4.5 3.5 - 5.2 [facility] gm/dL Comment: Testing Performed at [facility] Lab [facility], [address] [facility], [address], [place] [address] Specimen Anatomical Collection Method Collection Time Receive d Time (Source) Location / / Volume Laterality Blood 03/03/2022 9:35 AM 9:51 CDT AM CDT Mack Osorio MD LAB BLOOD ORDERABLES Performing Organization Address City/State/ZIP Code Phon e Number [facility] [address] [facility] [place] [address] [address] (ABNORMAL) Lipid Panel (03/03/2022 9:35 AM CDT) P athologist Signature Chol 168 <=199 mg/dL [facility] Comment: ATP III Classification of Total Choleste rol Primary Target of Therapy (in mg/dL): <200 Desirable 200-239 Borderline high >=240 High Testing Performed at [facility], [facility] [facility], [address], [place] [id number] Trig 173 (H) <=149 mg/dL [facility] Comment: ATP III Classification of Serum Triglyce rides Primary Target of Therapy (in mg/dL): <150 Normal 150-199 Borderline high 200-499 High >=500 Very high Non-fasting triglycerides >200 mg/dL may be followed up with a fasting Lipid Panel. Calculated LDL-C may be falsely decreased when non-fasting triglycerides >200 mg/dL. Testing Performed at [facility], [facility] [facility], [address], [place] [address] HDL 35 (L) >=40 mg/dL [facility] Comment: Testing Performed at [facility] Lab [facility], [facility] [facility], [address], [place] [id number] LDL 98 <=100 mg/dL [facility] Comment: ATP III Classification of LDL Cholestero l Primary Target of Therapy (in mg/dL): <100 Optimal 100-129 Near optimal/above optimal 130-159 Borderline high 160-189 High >=190 Very high Testing Performed at [facility] Lab [employer] [facility], [facility] [facility], [address], [place] [address] VLDL 35 mg/dL [facility] Comment: Testing Performed at [facility] Lab [facility], [facility] [facility], [address], [place] [address] Specimen Anatomical Collection Method Collection Time Receive d Time (Source) Location / / Volume Laterality Blood 03/03/2022 9:35 AM 2 CDT 10:06 AM CDT Mack Osorio MD LAB BLOOD ORDERABLES Performing Organization Address City/[facility]/ZIP Code Phon e Number [facility] [address] [facility] [place] [address] [address] Electrolyte Panel (03/03/2022 9:35 AM CDT)Only the most recent of3 resultswithin the time period is included. P athologist Signature Sodium Lvl 138 136 - 145 [facility] mEq/L Comment: Testing Performed at [facility] Lab [facility], [address], [address], [place] [id number] Potassium Lvl 4.2 3.5 - 5.1 mEq/L [facility] Comment: Testing Performed at [facility] Lab Am [facility] Care [facility], [address] [facility], [address], [place] [id number] Chloride 101 98 - 107 mEq/L [facility] Comment: Testing Performed at [facility] Lab Am bulatory Care [facility], [address], [address], [place] [id number] CO2 28 22 - 29 mEq/L [facility] Comment: Testing Performed at [facility] Lab Am bulatory Care [facility], [address], [address], [place] [id number] Anion Gap 9 4 - 14 mEq/L [facility] Comment: Testing Performed at [facility] Lab Am [facility] Care [facility], [address] [facility], [address], [place] [id number] Specimen Anatomical Collection Method Collection Time Receive d Time (Source) Location / / Volume Laterality Blood 03/03/2022 9:35 AM 2 9:51 CDT AM CDT Mack Osorio MD LAB BLOOD ORDERABLES Performing Organization Address City/[facility]/ZIP Code Phon e Number [facility] [address] [facility] [place] [address] [address] ZINVITAE (07/28/2021 11:44 AM AUTO DAMAGE APPRAISER) athologist Signature Zinvitae See Note [facility] Comment: Specimen for genetic testing davidson s been obtained, processed, and sent out to the reference laboratory. Your care team will contact you when the results are available. Specimen Anatomical Collection Method Collection Time Receive d Time (Source) Location / / Volume Laterality Varies 07/28/2021 11:44 07/28/2021 AM AUTO DAMAGE APPRAISER 12:30 PM AUTO DAMAGE APPRAISER Narrative [facility] - 2 11:44 AM AUTO DAMAGE APPRAISER This result has an attachment that is no t available. Create blood draw at [place] Natalie Mo NP LAB BLOOD ORDERABLES Performing Organization Address City/State/ZIP Code Phon e Number [facility] CANCER Unless otherwise noted, [place] [address] [place] all lab tests performed by: Division of Pathology and Laboratory Medicine [address] [employer] (send out) Material Request (07/24/2021 9:42 AM AUTO DAMAGE APPRAISER) [facility] gist Method Time Signature Archived Previously 10/07/2021 [facility] Material diagnosed 11:13 AM CDT tissues from [id number] were selected for molecular analysis. Results will be reported separately. Specimen Anatomical Collection Method Collection Time Receive d Time (Source) Location / / Volume Laterality Tissue 07/24/2021 9:42 AM 2 9:42 AUTO DAMAGE APPRAISER AM AUTO DAMAGE APPRAISER Mack Osorio MD, MDA IP AP BIOMARKERS Performing Organization Address City/[facility]/ZIP [place] [address] [address] IHC Ki-67 Material Request (07/24/2021 9:42 AM AUTO DAMAGE APPRAISER) Specimen Anatomical Collection Method Collection Time Receive d Time (Source) Location / / Volume Laterality Tissue 07/24/2021 9:42 AM 2 9:42 AUTO DAMAGE APPRAISER AM AUTO DAMAGE APPRAISER Mack Osorio MD, MDA IP AP BIOMARKERS Performing Organization Address City/State/[place]IP [place] [address] [address] IHC HER2/elias Material Request (07/24/2021 9:42 AM AUTO DAMAGE APPRAISER) Specimen Anatomical Collection Method Collection Time Receive d Time (Source) Location / / Volume Laterality Tissue 07/24/2021 9:42 AM 2 9:42 AUTO DAMAGE APPRAISER AM AUTO DAMAGE APPRAISER Mack Osorio MD, MDA IP AP BIOMARKERS Performing Organization Address City/State/ZIP Code Phon e Number [facility] [place] [address] [address] (ABNORMAL) POC Glucose Screen (07/13/2021 9:41 PM AUTO DAMAGE APPRAISER)Only the most recent of3 resultswithin the time period is included. athologist Signature POC Glucose 149 (H) 70 - 99 POC TELCOR mg/dL Comment: RN Notified Capillary blood samples, e.g. obtained b y fingerstick, may have inaccurate results in patients with decreased peripheral blood flow. Method description: All results are edna ured using Electrochemistry test methodology. The glucose in the sample mixes with the reagents on the test strip. The reaction produces an electric current. The amount of current produced is proportion al to the glucose concentration in the blood. PO Sample Type Capillary POC TELCOR Performing Lab [facility] POC TELCO R Comment: [facility], [address], [place] [address]; Lab Direct or: Lanny Butt MD Specimen Anatomical Collection Method Collection Time Receive d Time (Source) Location / / Volume Laterality Blood 07/13/2021 9:41 PM 9:41 AUTO DAMAGE APPRAISER PM AUTO DAMAGE APPRAISER Mara Wolf MD POCT ORDERABLES - DEVICE Performing Organization Address City/[facility]/ZIP Code Phon e Number POC TELCOR Pathology Surgical Interpretation (07/13/2021 3:36 PM AUTO DAMAGE APPRAISER) Component Value Ref Test Analysis Performed Pathologis t Range Method Time At Signature Addendum 1 Specimens: Left breast 07/30/2021 [facility] Addendum 10:17 AM electronic ally Immunohistochemical staining is performed in our lab on a textiles sales representative paraffin-embedded section. AUTO DAMAGE APPRAISER s igned by Specimen type: Paraffin-embedded section Hiral Specimen diagnosis: Invasive ductal carcinoma MD Yennifer Block: A14 on 022 at HER2 10:17 AM HER2 Results: Negative/focal equivocal HER2 Score: 1+/2+ Appropriate controls are present on the slide. FISH Evaluation: Gene copy level (HER2: CEP17 signal ratio) will be evaluated by FISH. Antibody clone:[id number] ([employer]) Positive cases are those wit h circumferential membrane staining that is complete, intense, and in >10% of tumor cells (Score 3+). Negative cases are defined as those with no staining, or membrane sta ining that is incomplete and is faint/barely perceptible and in ?10% of tumor cells (Score 0) or incomplete membrane staining that is faint/barely perceptible and in >10% of tumor cells (Score 1+). E quivocal cases are those wit h weak to moderate complete membrane staining observed in > 10% of tumor cells or circumferential membrane staining that is intense but in ?10% of tumor cells (Score 2+). Reference Abdirahman et al. J Clin Oncol 36:2105- 2018 Ki-67 Ki-67 Results: Low positive Ki-67 Percent Stainin% Antibody clone: MIB1 (DAKO) Low Positive <17% Moderate Positive 17-35% High Positive >35 % Footnote Breast specimens used for de termining prognostic / predictive markers are fixed in formalin for at least 6 hours and generally less than 48 hours, but formalin fixation exceeds 48 hours on holidays and weekends. If the specimen has been fix ed for longer than 72 hours, a negative HER2 immunohistochemical (IHC) result may theoretically represent a false negative, although studies have shown that specimens can be fixed for as long as 2 weeks without affecting IHC staining results. Therefore, a negative result should be verified by additional tests on alternative samples if appropriate. Reference Jay et al. Appl. Immunohistochem. Mol Morp 2005; 13; 283-286. If the specimen was not init ially processed at [facility], pre-analytical fixation times may be found in the accompanying pathology report. These assays have not been v alidated on decalcified tissues. Results should be interpreted with caution given the likelihood of false negativity on decalcified specimens. Submitted Infiltrating duct 07/30/2021 [facility] Clinical carcinoma, NOS of 10:17 AM History overlapping lesion of AUTO DAMAGE APPRAISER breast <Male; Left> [C50.822] Diagnosis A: Left breast, mastectomy: 07/30/2021 [facility] Electronically INVASIVE DUCTAL CARCINOMA, I NTERMEDIATE NUCLEAR GRADE, GENA HISTOLOGIC GRADE 2. 10:17 AM signed by Suzanna INVASIVE CARCINOMA MEASURES 2.2 CM IN GREATEST DIMENSION. AUTO DAMAGE APPRAISER MD Sloan on FOCAL ADJACENT INTRADUCTAL C ARCINOMA (DCIS), INTERMEDIATE NUCLEAR GRADE, SOLID AND CRIBRIFORM TYPES WITH NO NECROSIS. 2021 at No definitive lymphatic/vascular invasion identified. 7:26 PM Surgical margins are free of tumor. Skin and nipple, no tumor present. B: [place] lymph node #1, left axilla, biopsy: One lymph node, no tumor present (0/1). Cytokeratin stain shows no evidence of metastatic carcinoma. C: [place] lymph node #2, left axilla, biopsy: One lymph node, no tumor present (0/1). Cytokeratin stain shows no evidence of metastatic carcinoma. D: [place] lymph node #3, left axilla, biopsy: One lymph node, no tumor present (0/1). Cytokeratin stain shows no evidence of metastatic carcinoma. Synoptic INVASIVE CARCINOMA OF THE BREAST: Resection 07/30/2021 [facility] Checklist INVASIVE CARCINOMA OF THE BREAST: COMPLETE EXCISION - All Specimens 10:17 AM 8th Edition - Protocol posted: 08/28/2019 AUTO DAMAGE APPRAISER SPECIMEN Procedure: Total mastectomy Specimen Laterality: Left TUMOR Histologic Type: Invasive carcinoma of no special t ype (ductal) Glandular (Acinar) / Tubular Differentiation: Score 3 Nuclear Pleomorphism: Score 2 Mitotic Rate: Score 1 Overall Grade: Grade 2 (scores of 6 or 7) Tumor Size: Greates t dimension of largest invasive focus (Millimeters): 22 mm Ductal Carcinoma In Situ (DCIS): Present Tumor Extent: Treatment Effect in the Breast: No known presurgica l therapy MARGINS Invasive Carcinoma Margins: Uninvolved by invasive carcinoma Distance from Closest Margin (Millimeters): 8 mm Closest Margin(s): Inferior DCIS Margins: Uninvolved by DCIS Distance from Closest Margin (Millimeters): Gr eater than: 10 mm LYMPH NODES Regional Lymph Nodes: Uninvolved by tumor cells Total Number of Lymph Nodes Examined: 3 Number of [place] Nodes Examined: 3 PATHOLOGIC STAGE CLASSIFICATION (pTNM, AJCC 8th Edition) Primary Tumor (pT): pT2 Regional Lymph Nodes Modifier: (sn): [place] node( s) evaluated. Regional Lymph Nodes (pN): pN0 SPECIAL STUDIES Breast Biomarker Testing Performed on Previous Biopsy: Testing Performed on Gross A: 07/30/2021 [facility] Description Breast, left, left breast, s s-superior, ls- lateral...or 14: Specimen consists of an oriented left breast mastectomy specimen measuring 23.0 cm superior to inferior, 19.0 cm medial to lateral, 4.0 cm an 10:17 AM terior to posterior and weig hs 640 g. On the anterior aspect is a Brown black skin ellipse measuring 14.0 x 5.0 x 0.3 cm with the nipple areolar complex measuring 3.5 x 3.0 x 1.0 cm. The nipple and skin AUTO DAMAGE APPRAISER are grossly unremarkable. M ultiple sutures are present and are designated short stitch superior and long stitch lateral per the surgeon. Radiographs of the specimen reveal 1 metal biopsy clip. Specimen is serially sectioned from medial to lateral into 14 slices to reveal a montes de oca-white firm tumor with a scalloped appearing border identifie d spanning slices 8-9 measur ing 2.2 x 2.0 x 1.8 cm. The tumor is located 0.8 cm to the closest inferior margin, 1.5 cm to the nipple base, 2.0 cm to the posterior margin and 3.0 cm to the superior alex n. The margins appear grossl y free of the tumor and the tumor does not involve the adjacent skin. The metal biopsy clip is identified in slice 9 and the most lateral aspect of the tumor. The remaining b reast parenchyma is montes de oca-yell ow fibrofatty and unremarkable. No additional areas of concern are grossly identified. The breast parenchyma consi sts of approximately 20% montes de oca-white fibrous tissue and 80% montes de oca-yellow lobular tissue. INK CODE: Blue-superior, orange-inferior, black-posterior SECTION CODE: A1, slice 1 m edial margin, lower inner quadrant; A2, slice 2 lower inner quadrant; A3, slice 3 upper inner quadrant adjacent to area of concern based on radiology; A4, slice 4 area of con cern based on radiology with possible focal calcifications and adjacent skin; A5, slice 4 upper inner quadrant with posterior margin; A6, slice 5 area of fibrous tissue underlying skin; A7, slice 7 nipp le perpendicular; A8, slice 7 nipple base; A9-A10, slice 7 area of fibrotic tissue underlying nipple and skin from superior to inferior (A10 adjacent to tumor); A 11, slice 7 posterior margin representa tive; a 12, slice 8 superior margin adjacent to tumor; A13, slice 8 closest inferior margin adjacent to tumor; A 14-A 17, slice 8 tumor, full cross- sections, mirror images; A 18, slice 8 posterior alex n adjacent to tumor; A 19, s lice 9 remaining tumor with biopsy site; A 20, slice 9, posterior margin adjacent to biopsy site; A 21, slice 10 upper outer quadrant; A 22, slice 10 area of skin with underl codey focal calcification adj acent to tumor; A 23, slice 10 textiles sales representative adjacent to biopsy site and tumor; a 24, slice 11 area of concern based on radiology for possible lymph node, textiles sales representative; 82 5, slice 12 lower outer quad rant; A 26, slice 14 lower outer quadrant, lateral margin, perpendicular representatives. Time in formalin is 4:25 PM on 07/13/2021 DF B: [place] lymph node, axillar y, left axillary sentinel lymhp node # 1, hot and blue, in vivo = 318, ex vivo - 340: One yellow-toro possible lymph node (1.7 x 1.5 x 1.0 cm), entirely submitted. SECTION CODE: B1-B2, entirel y submitted of the specimen for frozen section evaluation and permanent process. JX C: [place] lymph node, axillar y, left axillary sentinel lymph node # 2, hot not blue, in vivo = 36, ex vivo - 44 ... or 14: One yellow-toro possible lymph node (2.0 x 1.0 x 0.4 cm), entirely submitted. SECTION CODE: C1, entirely s ubmitted of the specimen for frozen section evaluation and permanent process. JX D: [place] lymph node, axillar y, left axillary sentinel lymph node # 3, hot not blue, in vivo = 49, ex vivo - 149 ... or 14: One yellow-toro possible lymph node (2.0 x 1.0 x 0.7 cm), entirely submitted. SECTION CODE: D1-D2, entirel y submitted of the specimen for frozen section evaluation and permanent process. JX Biomarker Primary tumor block: 07/30/2021 [facility] L ABS Block(s) A14 10:17 AM AUTO DAMAGE APPRAISER Disclaimer "Some tests reported 07/30/2021 [facility] here may have been 10:17 AM developed and AUTO DAMAGE APPRAISER performance characteristics determined by [facility] Pathology and Laboratory Medicine. These tests have not been specifically cleared or approved by the U.S. Food and Drug Administration. If applicable, controls were reviewed and showed appropriate reactivity." Specimen Anatomical Collection Method Collection Time Receive d Time (Source) Location / / Volume Laterality Tissue (Breast, 07/13/2021 3:36 PM 2021 3:45 Left) AUTO DAMAGE APPRAISER PM AUTO DAMAGE APPRAISER Tissue ([place] 07/13/2021 3:41 PM 07/13 3:45 Lymph Node, AUTO DAMAGE APPRAISER PM AUTO DAMAGE APPRAISER Axillary) Tissue ([place] 07/13/2021 3:46 PM 07/13 3:51 Lymph Node, AUTO DAMAGE APPRAISER PM AUTO DAMAGE APPRAISER Axillary) Tissue ([place] 07/13/2021 3:53 PM 07/13 3:56 Lymph Node, AUTO DAMAGE APPRAISER PM AUTO DAMAGE APPRAISER Axillary) Mara Wolf MD LAB PATHOLOGY ORDERABLES Performing Organization Address City/State/ZIP Code Phon e Number [facility] [place] [address] [address] HER2 FISH Interpretation and Report (07/13/2021 2:43 PM AUTO DAMAGE APPRAISER) Specimen Anatomical Collection Method Collection Time Receive d Time (Source) Location / / Volume Laterality 07/13/2021 2:43 PM 2 2:44 AUTO DAMAGE APPRAISER PM AUTO DAMAGE APPRAISER Narrative This result has an attachment that is no t available. Dawood Gotti MD, MDA HP CYTOGENETICS (HP CG ) Cytogenetics Specimen Collection -FFPE (07/13/2021 2:43 PM AUTO DAMAGE APPRAISER) Analysis Performed At Patho logist Time Signature Fernieaker Ap Link [id number] [facility] Comment: Collection date/time has been modified t o: 14:43:00. Previous collection date/time: 14:43:00. Corrected from [id number] [NA] on 9:10:48 AUTO DAMAGE APPRAISER by Kia Deluca. Cytogenetics (Received) Yes [facility] Comment: Collection date/time has been modified t o: 14:43:00. Previous collection date/time: 14:43:00. Corrected from Yes [NA] on 08/02/21 9:10 :48 AUTO DAMAGE APPRAISER by Kia Deluca. Specimen Anatomical Collection Method Collection Time Receive d Time (Source) Location / / Volume Laterality FFPE 07/13/2021 2:43 PM 2 2:44 AUTO DAMAGE APPRAISER PM AUTO DAMAGE APPRAISER Dawood Gotti MD, MDA HP CG NONBLOOD COLLECT IONS Performing Organization Address City/State/ZIP Code Phon e Number [facility] Unless otherwise noted, [place] [address] CENTER all lab tests performed by: Division of Pathology and Laboratory Medicine [address] 2. Peripheral block (07/13/2021 1:35 PM AUTO DAMAGE APPRAISER) Nona Coleman MD - 07/13/2021 1:[address] Nona Domingo MD 07/13/2021 2:44 PM 2. Peripheral block Erector Spinae block single shot/ cathet er T3/T5/ T7/L5 Start time: 07/13/2021 1:27 PM End time: 07/13/2021 1:36 PM Patient location during procedure: pre-o p Reason for block: at surgeon's request a nd post-op pain management Staffing Anesthesiologist: Nona Domingo MD Other staff: Catracho Preanesthetic Checklist Completed: patient identified, site rob ed, surgical consent, pre-op evaluation, timeout performed, IV checke d, risks and benefits discussed and monitors and equipment checked Peripheral Block Patient position: supine Prep: alcohol/chlorhexidine gluconate sw ab 2% Maximal sterile barriers used: Yes Patient monitoring: heart rate, iron carrier and continuous pulse ox Block type: Erector Spinae block single shot/ catheter T3/T5/ T7/L5 Laterality: left Injection technique: single-shot Procedures: ultrasound guided Needle Needle type: Elkin Needle gauge: 21 G Needle length: 4 in Needle localization: ultrasound guidance Test dose: negative and lidocaine 1.5% w ith epinephrine 1-to-200,000 Attempts: 1 Sterile dressing applied: Yes Medications Administered Bupivacaine liposomal PF (EXPAREL) 266 m g/20 mL suspension, 20 mL bupivacaine PF (SENSORCAINE,MARCAINE) 5 mg/mL (0.5%) injection, 20 mL FentaNYL PF (SUBLIMAZE) injection 50 mcg /mL, 50 mcg Med File Time: 07/13/2021 1:35 PM Assessment Injection assessment: negative aspiratio n for heme, no paresthesia on injection, incremental injection and loc al visualized surrounding nerve on ultrasound Paresthesia pain: none Heart rate change: no Slow fractionated injection: yes Events: no acute complications Additional Notes At the level of T 5 The 3 muscle trapezius , rhomboid and er evelia spinae . After prepping the T3 transverse process contacted with latrell dle and then withdrawn a millimeter. After negative aspiration th e local anesthetic was injected Joan Hickman MD ANESTHESIA ORDERABLES Intraoperative Ultrasound (07/13/2021 1:05 PM AUTO DAMAGE APPRAISER) Specimen (Source) Anatomical Location Collection Method / Collectio n Time Received Time / Laterality Volume Narrative Systemgenerated, Documentation - 022 1:05 PM AUTO DAMAGE APPRAISER This procedure requires no interpretatio n from the radiologist. Nona Domingo MD IMG NON DI ORDERABLES Breast Specimen Radiograph (07/13/2021 12:15 PM AUTO DAMAGE APPRAISER) Anatomical Region Laterality Modality Breast N/A Digital Radiography Specimen (Source) Anatomical Collection Method Collection Time Re ceived Time Location / / Volume Laterality 07/13/2021 4:13 PM AUTO DAMAGE APPRAISER Impressions 07/13/2021 4:13 PM AUTO DAMAGE APPRAISER Radiography was performed for radiographic-pathologic correlation. Radiography confirms removal of 1 postbi opsy clip with associated malignant mass. Narrative 07/13/2021 4:13 PM AUTO DAMAGE APPRAISER Examination: Specimen Radiograph Left 07/13/2021. Indication: Breast Cancer Technique: Left breast mastectomy specim en submitted for review. There is a total of 4 radiographic images. The en b loc specimen is imaged on the first radiographic image. Findings: Findings were electronically a nnotated and discussed with the pathologist Dr. Lisa at the time of this d ictation. Procedure Note Ileana So MD - 07/13/2021Formattin g of this note might be different from the original. Examination: Specimen Radiograph Left . Indication: Breast Cancer Technique: Left breast mastectomy specim en submitted for review. There is a total of 4 radiographic images. The en b loc specimen is imaged on the first radiographic image. Findings: Findings were electronically a nnotated and discussed with the pathologist Dr. Lisa at the time of this d ictation. IMPRESSION: Radiography was performed for radiograph ic-pathologic correlation. Radiography confirms removal of 1 postbi opsy clip with associated malignant mass. Svitlana MENDOZA IMYamileth MAMMOGRAPHY ORDERABLES NM Lymphoscintigraphy Breast Lymphoseek (07/12/2021 11:04 AM AUTO DAMAGE APPRAISER) Anatomical Region Laterality Modality Abdomen Nuclear Medicine Specimen (Source) Anatomical Collection Method Collection Time Re ceived Time Location / / Volume Laterality 07/12/2021 4:40 PM AUTO DAMAGE APPRAISER Impressions 07/12/2021 4:42 PM AUTO DAMAGE APPRAISER Drainage into left axillary nodes Narrative 07/12/2021 4:42 PM AUTO DAMAGE APPRAISER FULL RESULT: Examination: Lymphoscintigraphy, 07/12/19 11:04 AM Clinical History: 70-year-old male with breast cancer Indication: Lymphatic mapping for sentin el lymph node localization. Comparison: None. Technique: The patient was injected with 2.75 mCi of technetium-99m Lymphoseek in left breast subareolar region. Transmission images of the chest were obtained. Findings: On images obtained approximate ly 2 hours after injection there is visualization of activity in the left axilla with one dominant focus and several fainter foci adjacent to this. Procedure Note Kade Rivera MD - 07/12/2021Format ting of this note might be different from the original. FULL RESULT: Examination: Lymphoscintigraphy, 07/12/19 11:04 AM Clinical History: 70-year-old male with breast cancer Indication: Lymphatic mapping for sentin el lymph node localization. Comparison: None. Technique: The patient was injected with 2.75 mCi of technetium-99m Lymphoseek in left breast subareolar region. Transmission images of the chest were obtained. Findings: On images obtained approximate ly 2 hours after injection there is visualization of activity in the left axilla with one dominant focus and several fainter foci adjacent to this. IMPRESSION: Drainage into left axillary nodes Svitlana MENDOZA IMG NM ORDERABLES COVID-19 (WILLY-CoV-2) PCR Asymptomatic (07/12/2021 9:14 AM AUTO DAMAGE APPRAISER) Component Value Ref Range Test Analysis Performed Pathologis t Method Time At [facility] COVID19 SARS Pre-OR Procedure [place] Indication [facility] COVID19 SARS Not Detected Not JAMES HOUGH Result Detected [facility] COVID19 SARS SARS-CoV-2 NOT Detected. [place] Interpretation [place] Reference Range: Not Detected [facility] Methodology: The [employer] Real Time SARS-CoV-2 assay is a qualitative real-time reverse communications assistant polymerase chain reaction (drawbench operator-PCR) test to detect RNA from SARS-CoV-2 in nasal, nasopharyngeal and oropharyngeal swabs from patients with signs and symptoms of infection who ar e suspected of COVID-19 by their health care provider. The [employer] RealTime SARS-CoV-2 performed on the [employer] m2000 System is a dual target assay with primers and probes for the RdRp and N genes. Results must be interpreted within the context of all relevant clinical and laboratory findings, and epidemiological risk factors. Positive results are indicative of the presence of SARS-CoV-2 RNA; clinical correlation with patient history and other diagnostic information is ne cessary to determine patient infection status. Positive results do not rule out bacterial infection or co-infection with other viruses. Negative results do not preclude SARS- CoV-2 infection and should not be used as the sole basis for patient management decisions. The [employer] RealTime SARS-CoV -2 assay is for in vitro diagnostic use under FDA Emergency Use Authorization only. Testing is limited to laboratories certified under the Clinical Laboratory Improvement Yary ndments of 1988 (CLIA), 42U.S.C. 263a, to perform high complexity tests. The T est was performed by the CLIA-certified, high- complexity Molecular Diagnostics Laboratory (MDL) at [facility] under the Food and Drug Administration (FDA) s Emergency Use Authorization. Factsheet for patients: https://www.[facility].org/AbbottFac tSheetPatients Factsheet for healthcare pro viders: https://www.[facility].org/AbbottFactSheetHCP Test performed by: The [facility] Lab [address] [place] [address] Specimen (Source) Anatomical Collection Method Collection Time Re ceived Time Location / / Volume Laterality Nasopharyngeal Swab 07/12/2021 9:14 07/12 AM AUTO DAMAGE APPRAISER 10:34 AM AUTO DAMAGE APPRAISER Mara Wolf MD MICROBIOLOGY - GENERAL ORDER MAXI Performing Organization Address City/State/ZIP Code Phon e Number [facility] Unless otherwise noted, [place] [address] CENTER all lab tests performed by: Division of Pathology and Laboratory Medicine [address] aPTT (06/29/2021 11:03 AM AUTO DAMAGE APPRAISER) P athologist Signature aPTT 29.1 24.7 - 36.8 [facility] second(s) Comment: Testing Performed at [facility] Lab [employer] [address] [facility] [place] [address] CLIA License: [id number] Specimen Anatomical Collection Method Collection Time Receive d Time (Source) Location / / Volume Laterality Blood 06/29/2021 11:03 06/29/2021 AM AUTO DAMAGE APPRAISER 11:15 AM AUTO DAMAGE APPRAISER Valerie Gillespie NP LAB BLOOD ORDERABLES Performing Organization Address City/State/ZIP Code Phon e Number [facility] [address] [facility] [place] [address] [address] Prothrombin Time with INR (06/29/2021 11:03 AM AUTO DAMAGE APPRAISER) athologist Signature PT 12.8 11.5 - 13.9 [facility] second(s) Comment: Testing Performed at [facility] Lab Television Actor [facility] [address] [place] [id number] INR 1.04 0.90 - 1.10 [facility] Comment: Testing Performed at [facility] [employer] Actor [facility] [address] [facility] [facility] [facility] [place] [address] Specimen Anatomical Collection Method Collection Time Receive d Time (Source) Location / / Volume Laterality Blood 06/29/2021 11:03 06/29/2021 AM AUTO DAMAGE APPRAISER 11:15 AM AUTO DAMAGE APPRAISER Valerie Gillespie NP LAB BLOOD ORDERABLES Performing Organization Address City/[facility]/ZIP Code Phon e Number [facility] [address] [facility] [place] [address] [address] Hemoglobin A1c (06/28/2021 4:20 PM AUTO DAMAGE APPRAISER) athologist Signature A1C 5.2 4.3 - 5.6 % [facility] Comment: HbA1c values >=6.5% are diagnostic of di abetes mellitus. Diagnosis should be confirmed by repeat testing. Therapeutic Action suggested: >8.0% HbA1 c; Goal of therapy: <7.0% HbA1c Specimen Anatomical Collection Method Collection Time Receive d Time (Source) Location / / Volume Laterality Blood 06/28/2021 4:20 PM 5:10 AUTO DAMAGE APPRAISER PM AUTO DAMAGE APPRAISER Valerie Gillespie MENTAL HEALTH PROGRAM MANAGER LAB BLOOD ORDERABLES Performing Organization Address City/State/ZIP Code Phon e Number [facility] Unless otherwise noted, [place], [place] [id number] [place] [address] all lab tests performed by: Division of Pathology and Laboratory Medicine [address] [place] [address] X-ray Chest 2 Views (06/28/2021 3:50 PM AUTO DAMAGE APPRAISER) Anatomical Region Laterality Modality Chest Digital Radiography Specimen (Source) Anatomical Collection Method Collection Time Re ceived Time Location / / Volume Laterality 06/28/2021 3:51 PM AUTO DAMAGE APPRAISER Impressions 06/28/2021 3:52 PM AUTO DAMAGE APPRAISER No acute findings or metastatic disease in the chest. Narrative 06/28/2021 3:52 PM AUTO DAMAGE APPRAISER FULL RESULT: Examination: XR CHEST 2 VW, 06/28/2021 3 :50 PM Clinical History: Infiltrating duct carc inoma, 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; Left> Indication: Baseline Chest X-Ray Comparison: None Technique: Posteroanterior, lateral and dual-energy radiographs of the chest. Findings: The lungs are clear. There is no pleural effusion or pneumothorax. Heart and mediastinal contours are adonis l. Degenerative disease of the spine. Procedure Note Kendell Jurado MD - 06/28/2021 FULL RESULT: Examination: XR CHEST 2 VW, 06/28/2021 3 :50 PM Clinical History: Infiltrating duct carc inoma, 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; Left> Indication: Baseline Chest X-Ray Comparison: None Technique: Posteroanterior, lateral and dual-energy radiographs of the chest. Findings: The lungs are clear. There is no pleural effusion or pneumothorax. Heart and mediastinal contours are adonis l. Degenerative disease of the spine. IMPRESSION: No acute findings or metastatic disease in the chest. Valerie Gillespie NP IMG DIAGNOSTIC IMAGING ORDER MAXI EKG, 12-Lead (Scheduled) (06/28/2021) Specimen (Source) Anatomical Location Collection Method / Collectio n Time Received Time / Laterality Volume Narrative This result has an attachment that is no t available. Valerie Gillespie NP ECG ORDERABLES Performing Organization Address City/State/ZIP Code Phon e Number [facility] I[facility]G (ABNORMAL) US Breast Limited Right (06/23/2021 9:52 AM AUTO DAMAGE APPRAISER) Anatomical Region Laterality Modality Breast Right Ultrasound Specimen (Source) Anatomical Collection Method Collection Time Re ceived Time Location / / Volume Laterality 06/23/2021 11:20 AM AUTO DAMAGE APPRAISER Impressions 06/23/2021 11:20 AM AUTO DAMAGE APPRAISER Unifocal left breast malignancy. No regional lymph adenopathy by ultrasound. Recommend appropriate evaluation and dae atment of this known malignancy. Findings were discussed with Mr. Cantrell at the time of the exam. BI-RADS Category 6: Known Biopsy Proven Malignancy Narrative 06/23/2021 11:20 AM AUTO DAMAGE APPRAISER CLINICAL INDICATION: Patient is a 70 year old male and is see n for breast cancer FILMS COMPARED The present examination has been compare d to prior imaging studies performed at an outside location ultrasound on 2020 and ultrasound guided biopsy on 06/09/2021. Images were obtained in multiple scannin g planes. Real-time sonographic imaging of the lef t breast (including all 4 quadrants and retroareolar region) was performed. Re al-time sonographic imaging of the left regional geovanny basins including ultrasou nd of the chest/mediastinum to evaluate the axillary (level I,II,III) and planner internship al mammary regions was performed. Real-time sonographic imaging of the rig ht breast (limited to less than 4 quadrants) of the right retroareolar reg ion was performed. Left Breast: There is an irregular anti-parallel hypo echoic mass with angular margins measuring 2.2 x 1.8 x 1.3 centimeters in the left breast outer hemisphere at 3 o'clock located 2 centimeters from the n ipple. This represents the known biopsy proven malignancy. No findings to sugges t nipple, skin or pectoralis involvement. No additional suspicious fi nding are identified in left breast. Left Regional Geovanny Basins: No axillary (level I, II, III) or internal mammary lymph adenopathy is identified. Right Breast (targeted): Targeted imaging of the retroareolar rig ht breast demonstrates no suspicious mass or other finding. The findings note d mammographically in the bilateral retroareolar regions, right greater than left are consistent with gynecomastia. Procedure Note Ileana So MD - 06/23/2021Formattin g of this note might be different from the original. CLINICAL INDICATION: Patient is a 70 year old male and is see n for breast cancer FILMS COMPARED The present examination has been compare d to prior imaging studies performed at an outside location ultrasound on 2020 and ultrasound guided biopsy on 06/09/2021. Images were obtained in multiple scannin g planes. Real-time sonographic imaging of the lef t breast (including all 4 quadrants and retroareolar region) was performed. Real -time sonographic imaging of the left regional geovanny basins including ultrasou nd of the chest/mediastinum to evaluate the axillary (level I,II,III) and planner internship al mammary regions was performed. Real-time sonographic imaging of the rig ht breast (limited to less than 4 quadrants) of the right retroareolar reg ion was performed. Left Breast: There is an irregular anti-parallel hypo echoic mass with angular margins measuring 2.2 x 1.8 x 1.3 centimeters in the left breast outer hemisphere at 3 o'clock located 2 centimeters from the n ipple. This represents the known biopsy proven malignancy. No findings to sugges t nipple, skin or pectoralis involvement. No additional suspicious fi nding are identified in left breast. Left Regional Geovanny Basins: No axillary (level I, II, III) or internal mammary lymph adenopathy is identified. Right Breast (targeted): Targeted imaging of the retroareolar rig ht breast demonstrates no suspicious mass or other finding. The findings note d mammographically in the bilateral retroareolar regions, right greater than left are consistent with gynecomastia. IMPRESSION: Unifocal left breast malignancy. No suzan onal lymph adenopathy by ultrasound. Recommend appropriate evaluation and dae atment of this known malignancy. Findings were discussed with Mr. Cantrell at the time of the exam. BI-RADS Category 6: Known Biopsy Proven Malignancy Valerie Gillespie NP IMG US ORDERABLES (ABNORMAL) US Chest for Breast Ultrasound (Add-on Only) (06/23/2021 9:52 AM AUTO DAMAGE APPRAISER) Anatomical Region Laterality Modality Chest Ultrasound Specimen (Source) Anatomical Collection Method Collection Time Re ceived Time Location / / Volume Laterality 06/23/2021 11:20 AM AUTO DAMAGE APPRAISER Impressions 06/23/2021 11:20 AM AUTO DAMAGE APPRAISER Unifocal left breast malignancy. No regional lymph adenopathy by ultrasound. Recommend appropriate evaluation and dae atment of this known malignancy. Findings were discussed with Mr. Cantrell at the time of the exam. BI-RADS Category 6: Known Biopsy Proven Malignancy Narrative 06/23/2021 11:20 AM AUTO DAMAGE APPRAISER CLINICAL INDICATION: Patient is a 70 year old male and is see n for breast cancer FILMS COMPARED The present examination has been compare d to prior imaging studies performed at an outside location ultrasound on 2020 and ultrasound guided biopsy on 06/09/2021. Images were obtained in multiple scannin g planes. Real-time sonographic imaging of the lef t breast (including all 4 quadrants and retroareolar region) was performed. Re al-time sonographic imaging of the left regional geovanny basins including ultrasou nd of the chest/mediastinum to evaluate the axillary (level I,II,III) and planner internship al mammary regions was performed. Real-time sonographic imaging of the rig ht breast (limited to less than 4 quadrants) of the right retroareolar reg ion was performed. Left Breast: There is an irregular anti-parallel hypo echoic mass with angular margins measuring 2.2 x 1.8 x 1.3 centimeters in the left breast outer hemisphere at 3 o'clock located 2 centimeters from the n ipple. This represents the known biopsy proven malignancy. No findings to sugges t nipple, skin or pectoralis involvement. No additional suspicious fi nding are identified in left breast. Left Regional Geovanny Basins: No axillary (level I, II, III) or internal mammary lymph adenopathy is identified. Right Breast (targeted): Targeted imaging of the retroareolar rig ht breast demonstrates no suspicious mass or other finding. The findings note d mammographically in the bilateral retroareolar regions, right greater than left are consistent with gynecomastia. Procedure Note Ileana So MD - 06/23/2021Formattin g of this note might be different from the original. CLINICAL INDICATION: Patient is a 70 year old male and is see n for breast cancer FILMS COMPARED The present examination has been compare d to prior imaging studies performed at an outside location ultrasound on 2020 and ultrasound guided biopsy on 06/09/2021. Images were obtained in multiple scannin g planes. Real-time sonographic imaging of the lef t breast (including all 4 quadrants and retroareolar region) was performed. Real -time sonographic imaging of the left regional geovanny basins including ultrasou nd of the chest/mediastinum to evaluate the axillary (level I,II,III) and planner internship al mammary regions was performed. Real-time sonographic imaging of the rig ht breast (limited to less than 4 quadrants) of the right retroareolar reg ion was performed. Left Breast: There is an irregular anti-parallel hypo echoic mass with angular margins measuring 2.2 x 1.8 x 1.3 centimeters in the left breast outer hemisphere at 3 o'clock located 2 centimeters from the n ipple. This represents the known biopsy proven malignancy. No findings to sugges t nipple, skin or pectoralis involvement. No additional suspicious fi nding are identified in left breast. Left Regional Geovanny Basins: No axillary (level I, II, III) or internal mammary lymph adenopathy is identified. Right Breast (targeted): Targeted imaging of the retroareolar rig ht breast demonstrates no suspicious mass or other finding. The findings note d mammographically in the bilateral retroareolar regions, right greater than left are consistent with gynecomastia. IMPRESSION: Unifocal left breast malignancy. No suzan onal lymph adenopathy by ultrasound. Recommend appropriate evaluation and dae atment of this known malignancy. Findings were discussed with Mr. Cantrell at the time of the exam. BI-RADS Category 6: Known Biopsy Proven Malignancy Valerie Gillespie NP IMG US ORDERABLES (ABNORMAL) US Breast Complete Left (06/23/2021 9:52 AM AUTO DAMAGE APPRAISER) Anatomical Region Laterality Modality Breast Left Ultrasound Specimen (Source) Anatomical Collection Method Collection Time Re ceived Time Location / / Volume Laterality 06/23/2021 11:20 AM AUTO DAMAGE APPRAISER Impressions 06/23/2021 11:20 AM AUTO DAMAGE APPRAISER Unifocal left breast malignancy. No regional lymph adenopathy by ultrasound. Recommend appropriate evaluation and dae atment of this known malignancy. Findings were discussed with Mr. Cantrell at the time of the exam. BI-RADS Category 6: Known Biopsy Proven Malignancy Narrative 06/23/2021 11:20 AM AUTO DAMAGE APPRAISER CLINICAL INDICATION: Patient is a 70 year old male and is see n for breast cancer FILMS COMPARED The present examination has been compare d to prior imaging studies performed at an outside location ultrasound on 2020 and ultrasound guided biopsy on 06/09/2021. Images were obtained in multiple scannin g planes. Real-time sonographic imaging of the lef t breast (including all 4 quadrants and retroareolar region) was performed. Re al-time sonographic imaging of the left regional geovanny basins including ultrasou nd of the chest/mediastinum to evaluate the axillary (level I,II,III) and planner internship al mammary regions was performed. Real-time sonographic imaging of the rig ht breast (limited to less than 4 quadrants) of the right retroareolar reg ion was performed. Left Breast: There is an irregular anti-parallel hypo echoic mass with angular margins measuring 2.2 x 1.8 x 1.3 centimeters in the left breast outer hemisphere at 3 o'clock located 2 centimeters from the n ipple. This represents the known biopsy proven malignancy. No findings to sugges t nipple, skin or pectoralis involvement. No additional suspicious fi nding are identified in left breast. Left Regional Geovanny Basins: No axillary (level I, II, III) or internal mammary lymph adenopathy is identified. Right Breast (targeted): Targeted imaging of the retroareolar rig ht breast demonstrates no suspicious mass or other finding. The findings note d mammographically in the bilateral retroareolar regions, right greater than left are consistent with gynecomastia. Procedure Note Ileana So MD - 06/23/2021Formattin g of this note might be different from the original. CLINICAL INDICATION: Patient is a 70 year old male and is see n for breast cancer FILMS COMPARED The present examination has been compare d to prior imaging studies performed at an outside location ultrasound on 2020 and ultrasound guided biopsy on 06/09/2021. Images were obtained in multiple scannin g planes. Real-time sonographic imaging of the lef t breast (including all 4 quadrants and retroareolar region) was performed. Real -time sonographic imaging of the left regional geovanny basins including ultrasou nd of the chest/mediastinum to evaluate the axillary (level I,II,III) and planner internship al mammary regions was performed. Real-time sonographic imaging of the rig ht breast (limited to less than 4 quadrants) of the right retroareolar reg ion was performed. Left Breast: There is an irregular anti-parallel hypo echoic mass with angular margins measuring 2.2 x 1.8 x 1.3 centimeters in the left breast outer hemisphere at 3 o'clock located 2 centimeters from the n ipple. This represents the known biopsy proven malignancy. No findings to sugges t nipple, skin or pectoralis involvement. No additional suspicious fi nding are identified in left breast. Left Regional Geovanny Basins: No axillary (level I, II, III) or internal mammary lymph adenopathy is identified. Right Breast (targeted): Targeted imaging of the retroareolar rig ht breast demonstrates no suspicious mass or other finding. The findings note d mammographically in the bilateral retroareolar regions, right greater than left are consistent with gynecomastia. IMPRESSION: Unifocal left breast malignancy. No suzan onal lymph adenopathy by ultrasound. Recommend appropriate evaluation and dae atment of this known malignancy. Findings were discussed with Mr. Cantrell at the time of the exam. BI-RADS Category 6: Known Biopsy Proven Malignancy Valerie TylreGillespie MENTAL HEALTH PROGRAM MANAGER IMG US ORDERABLES (ABNORMAL) Mammography Digital Diagnostic Bilateral with Terence (06/23/2021 8:13 AM AUTO DAMAGE APPRAISER) Anatomical Region Laterality Modality Breast Bilateral Mammography Specimen (Source) Anatomical Collection Method Collection Time Re ceived Time Location / / Volume Laterality 06/23/2021 11:11 AM AUTO DAMAGE APPRAISER Impressions 06/23/2021 11:11 AM AUTO DAMAGE APPRAISER 1: Mass in the left breast outer hemisphere at 3 o'clock located 2 centimeters from the nipple is known biopsy-proven m alignancy. Ultrasound is recommended for staging. 2: Gynecomastias in both breasts are b enign. BI-RADS Category 6: Known Biopsy Proven Malignancy Narrative 06/23/2021 11:11 AM AUTO DAMAGE APPRAISER CLINICAL INDICATION: Patient is a 70 year old male and is see n for breast cancer MAMMO DIGITAL DIAGNOSTIC BILATERAL W BRIGIDO O Digital Mammogram evaluated with Spring.me r Aided Detection (CAD). COMPARISON: The present examination has been compare d to a prior imaging study performed at an outside location on 06/01/2021. FINDINGS: The breasts are almost entirely fatty. 1: There is a high density, irregular mass measuring 1.9 x 1.5 x 1.4 centimeters with indistinct margins and associated amorphous and coarse heterogeneous calcifications and post bi opsy clip in the left breast outer hemisphere at 3 o'clock located 2 centim eters from the nipple. This finding represents the known malignancy. Ultraso und-guided biopsy demonstrated invasive ductal carcinoma on outside pathology. N o findings to suggest skin, nipple or pectoralis muscle involvement 2: There is gynecomastia in both breas ts. Tomosynthesis performed in CC and MLO pr ojections. Procedure Note Ileana So MD - 06/23/2021Formattin g of this note might be different from the original. CLINICAL INDICATION: Patient is a 70 year old male and is see n for breast cancer MAMMO DIGITAL DIAGNOSTIC BILATERAL W BRIGIDO O Digital Mammogram evaluated with Compute r Aided Detection (CAD). COMPARISON: The present examination has been compare d to a prior imaging study performed at an outside location on 06/01/2021. FINDINGS: The breasts are almost entirely fatty. 1: There is a high density, irregular ma ss measuring 1.9 x 1.5 x 1.4 centimeters with indistinct margins and associated amorphous and coarse heterogeneous calcifications and post bi opsy clip in the left breast outer hemisphere at 3 o'clock located 2 centim eters from the nipple. This finding represents the known malignancy. Ultraso und-guided biopsy demonstrated invasive ductal carcinoma on outside pathology. N o findings to suggest skin, nipple or pectoralis muscle involvement 2: There is gynecomastia in both breasts . Tomosynthesis performed in CC and MLO pr ojections. IMPRESSION: 1: Mass in the left breast outer hemisph ere at 3 o'clock located 2 centimeters from the nipple is known biopsy-proven m alignancy. Ultrasound is recommended for staging. 2: Gynecomastias in both breasts are romeo ign. BI-RADS Category 6: Known Biopsy Proven Malignancy Valerie Gillespie NP IMG MAMMOGRAPHY ORDERABLES OSI US Breast Biopsy (06/09/2021 7:11 AM AUTO DAMAGE APPRAISER) Specimen (Source) Anatomical Location Collection Method / Collectio n Time Received Time / Laterality Volume Narrative [facility] - 06/23/2021 7:11 AM AUTO DAMAGE APPRAISER Study acquired at another institution. For comparison only. No MD Damon originated interpretation requested or a vailable. Sasha Brown MD [facility] [place] [facility] IMAGE ORDERABLES Performing Organization Address City/State/ZIP Code Phon e Number [facility] Pathology Outside Interpretation (06/09/2021) Component Value Ref Test Analysis Performed Pathologis t Range Method Time At Signature Materials Accession#, Stained, Block, Unstained Collected Received 07/06/2021 [facility] Received A. 21:[id number], 12 SS, 1 BLOCKS, 0 USS 06/09/2021 07/06/2021 2:50 PM AUTO DAMAGE APPRAISER Diagnosis Outside ([id number], 12 SS, 1 BLOCKS, 0 USS, didi ected on 06/09/2021): 07/06/2021 [facility] Electronically 2:50 PM signed by Jessie Left breast, 3 o'clock, ultr asound-guided core needle biopsy (A1 level 1, A1 level 2, A1 level 21, and IHC x9): AUTO DAMAGE APPRAISER MD Agustin on 07/06/2021 a t 2:39 INVASIVE DUCTAL CARCINOMA, I NTERMEDIATE NUCLEAR GRADE, GENA HISTOLOGIC GRADE 2. (SEE COMMENT) PM Invasive carcinoma is prese nt in multiple cores and measures approximately 8 mm in this core needle biopsy specimen. Comment Submitted immunoperoxidase s tains show the invasive carcinoma is positive for AE1/3 and GATA3, supporting breast origin and tumor cells are positive for E-cadherin, the finding of which is consistent wi 07/06/2021 [facility] th ductal phenotype. Myoepit helial marker p63 is negative around the invasive carcinoma. 2:50 PM Prognostic/predictive marker s show the invasive carcinoma is strongly positive for estrogen receptor (>95%), low positive for progesterone receptor (20%) and equivocal for HER2 by IHC (score 2+). Ki-67 is positive in about 20% of tumor nuclei. AUTO DAMAGE APPRAISER Per the outside report, HER2 is negative for amplification by FISH (HER2:CEN17 ratio of 2.4; average of 3.9 HER2 signals/nucleus). Biomarker Primary 07/06/2021 [facility] Block(s) Tumor block: [id number], block A1 2:50 PM AUTO DAMAGE APPRAISER Disclaimer "Some tests 07/06/2021 [facility] reported here may 2:50 PM have been developed AUTO DAMAGE APPRAISER and performance characteristics determined by [facility] Pathology and Laboratory Medicine. These tests have not been specifically cleared or approved by the U.S. Food and Drug Administration. If applicable, controls were reviewed and showed appropriate reactivity." Specimen (Source) Anatomical Collection Method Collection Time Re ceived Time Location / / Volume Laterality Tissue 06/09/2021 07/06/2021 10:3 6 AM AUTO DAMAGE APPRAISER Fiona Sorensen MD LAB PATHOLOGY ORDERABLES Performing Organization Address City/State/ZIP Code Phon e Number [facility] [place] [address] [id number] [facility]SI Mammo (06/01/2021 7:11 AM AUTO DAMAGE APPRAISER) Specimen (Source) Anatomical Location Collection Method / Collectio n Time Received Time / Laterality Volume Narrative [facility] - 06/23/2021 7:11 AM AUTO DAMAGE APPRAISER Study acquired at another institution. For comparison only. No MD Damon originated interpretation requested or a vailable. Sasha Brown MD IMG OUTSIDE IMAGE ORDERABLES Performing Organization Address City/State/ZIP Code Phon e Number [facility] US Breast (06/01/2021 7:11 AM AUTO DAMAGE APPRAISER) Specimen (Source) Anatomical Location Collection Method / Collectio n Time Received Time / Laterality Volume Narrative [facility] - 06/23/2021 7:11 AM AUTO DAMAGE APPRAISER Study acquired at another institution. For comparison only. No MD Damon originated interpretation requested or a vailable. Sasha Brown MD IMG OUTSIDE IMAGE ORDERABLES Performing Organization Address City/State/ZIP Code Phon e Number [facility] after 03/09/2021 Insurance Payer Benefit Plan / Subscriber ID Effective Dates Phone Addre ss Type Group AETNA MEDICARE AETNA MEDICARE [id number] 2021-Presen [address] [place] [address] Cullen Cantrell Personal/Family Self [phone]) [place] [phone] Advance Directives Code Status Date Activated Date Inactivated Comments Full Code 07/13/2021 10:40 PM 07/14/2021 1:36 PM Care Teams [employer] Team Leader Relationship Specialty Start Date End Date Bautista Bergeron PCP - External Referring Internal Medicine 06/02 09/20 MD [facility] [address] [place] [address] [place] [phone] Sasha Brown, PCP - General Breast Surgery 06/17/[address] [place] [id number] Mack Osorio MD PCP - General Breast Medical 10/08/[address] [place] [address] [place] [address] Ann Rodriguez Physician Radiation Oncology 06/29/21 MD [facility] [place] [address] Mara Wolf MD Physician Breast Surgery 10[address][birth year][address] [place] [id number]
--- OUTSIDE RECORDS SUMMARY | 2022-03-09 15:59 | XMS REPORT | Continuity of Care Document ---
:1950 Author Organization [facility] t Address [address] [place] [address] Dr. [address]. [address] [place] [address] Care Team Providers Name Role Phone Rubio HOUGH, Bautista Primary Care Physician [phone] SYSTEM, PROVIDER NOT IN Attending Clinician Unavailable LEOBARDO SHAHID Attending Clinician Unavailable Mack Osorio MD Attending Clinician Jaqueline Trujillo MD Attending Clinician Judd ELASTIC ASSEMBLER, Pepe Attending Clinician Nay SIBLEY, Nikhil Attending Clinician Unavailable Mark [facility] Attending Clinician Unavailable Alesiso LUIS, Kathleen Cornejo Attending Clinician Filomena HOUGH, Lanny Dumont Attending Clinician [phone] Shen HOUGH, Dawood Biswas Attending Clinician [phone] Chely ABRAHAM, Natalie Attending Clinician [phone] Maryann HOUGH, Mara Attending Clinician Jose Miguel ABRAHAM, Hortensia Attending Clinician Radha Wilson Attending Clinician Kevin HOUGH, Jennifer Attending Clinician Seymour LUIS, Flip Cochran Attending Clinician Unavailable Michael LUIS, Ileana Craven Attending Clinician Felix PA, Svitlana Attending Clinician Vick HOUGH, Joan Attending Clinician Lisa Miranda DO Attending Clinician Chayo HOUGH, Nona Attending Clinician MARA SALAZAR Attending Clinician Unavailable Catracho HOUGH, Tracey Attending Clinician Unavailable Stephanie HOUGH, Sasha Garnica Attending Clinician Alex LUIS, Ashley Jean Baptiste Attending Clinician Unavailable Joseph HOUGH, Venu Carson Attending Clinician Franchesca HOUGH, Fiona Mari Attending Clinician Ted ABRAHAM, Tracey Escobar Attending Clinician Tyler HOUGH, Carlyle Combs Attending Clinician HORTENSIA CHAVEZ Attending Clinician Unavailable Michael HOUGH, Ann Becerra Attending Clinician [phone] LAMONTE VALENCIA Attending Clinician Unavailable Leobardo Shahid MD Attending Clinician Nabila Corrales CRNA Attending Clinician Apolinar Merino MD Attending Clinician Only, Adc Test Attending Clinician Unavailable Pob, Adc Lab Main Attending Clinician Unavailable LEOBARDO SHAHID Admitting Clinician Unavailable MARA SALAZAR Admitting Clinician Unavailable Leobardo Shahid MD Admitting Clinician Payers Payer Name Policy Type Policy Number Effective Date Expiration Date S carlos [employer]ET[employer] MEDICARE ADV [id number] 2017 00:00:00 Problems Condition Condition Condition Status Onset Resolution Last Treating Co mments Source Name Details Category Date Date Treatment Clinician Date Estrogen Estrogen Disease Active 2020-07 Unive rs receptor receptor 2-27 ity of positive positive 00:00: [place] status status 00 (ER+) (ER+) [facility] 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, carcinoma, [place] NOS of NOS of 00 overlappin overlappin An derso g lesion g lesion n of breast of breast Canc er <Male; <Male; Center Left> Left> Neurosyphi Neurosyphi Disease Active M ethodi lis in lis in 01-24 male male 00:00: Hospita 00 l Left-sided Left-sided Disease Active M ethodi [facility]-13 [facility] palsy palsy 00:00: Hospita 00 l Ataxia Ataxia Disease Active Methodi 12-13 st 00:00: Hospita 00 l Obesity Obesity Disease Active Univers (BMI (BMI 5-10 ity of 30-39.9) 30-39.9) 00:00: [place] 00 Medical Branch Other Other Disease Active Univers acute acute ity of postoperat [place]operat [place] annel pain annel pain [facility] Allergies, Adverse Reactions, Alerts Allergy Allergy Status Severity Reaction(s) Onset Inactive Treating Comm ents Source Name Type Date Date Clinician Gabapent Propensi Active Other (See dizziness Methodi in ty to Comments) 12-13 st adverse 00:00: Hospita reaction 00 l s to drug Gabapent Propensi Active Other (See dizziness Univers in ty to Comments) 12-13 dizziness ity of adverse 00:00: [place] reaction 00 MD shey Lenz [facility] GABAPENT DRUG Active Other MD IN INGREDI - Anderso 00:00: n 00 GABAPENT DRUG Active Other 2016- MD IN INGREDI -13 Anderso 00:00: n 00 GABAPENT DRUG Active Other MD IN INGREDI -13 Anderso 00:00: n 00 GABAPENT DRUG Active Other 2016- MD IN INGREDI 13 Anderso 00:00: n 00 GABAPENT DRUG Active Other 2016- MD IN INGREDI -13 Anderso 00:00: n 00 GABAPENT DRUG Active Other 2016- MD IN INGREDI 13 Anderso 00:00: n 00 GABAPENT DRUG Active Other-Cmnt Univ ers IN INGREDI 12-13 ity of 00:00: [place] 00 Medical Branch NO KNOWN Drug Active Univers ALLERGIE Class ity of S [place] [facility] [place] Family History Family Member Diagnosis Comments Start Date Stop Date Source Natural brother Cirrhosis [facility] [place] [facility] Natural brother Coronary artery Univ ersity of disease [place] [facility] Natural brother Lung cancer [facility] [place] [facility] Natural father Hypertension [facility] [place] [facility] Natural father Pancreatic cancer Uni [facility]ity [facility] [place] [facility] Grandchild [facility] Maternal aunt [facility] Maternal [facility] Maternal [facility] MD Quijano rson [facility] Maternal uncle [facility] Natural mother Diabetes [facility] Natural mother Hypertension [facility] [place] [facility] Natural mother Stroke [facility] Niece/nephew [facility] [place] [facility] Paternal aunt [facility] Paternal cousin Throat cancer Univer sity [facility] Paternal [facility] Paternal [facility] MD [facility]ijano [facility] Paternal uncle -Unknown cancer [facility]ive rsity [facility] [place] [facility] Natural sister [facility] Natural son [facility] Family member Breast cancer [facility] [place] [facility] Family member Ovarian cancer [facility] [place] [facility] Family member VTE [facility] Social History Social Habit Start Date Stop Date Quantity Comments Source Exposure to 2022-02-21 2022-03-03 Not sure University [facility]-CoV-2 00:00:00 09:50:00 [facility] (event[facility] Alcohol intake 2022-03-03 2022-03-03 Lifetime University of 00:00:00 00:00:00 non-drinker [facility] sy (finding) [facility] Tobacco use and 2021-06-28 2021-06-28 Smokeless tobacco Un iversity of exposure 00:00:00 00:00:00 non-user [facility] Education 2021-06-28 2021-06-28 17 University of 00:00:00 00:00:00 [place] MD Lea [facility] Sex Assigned At [birth year] M [facility] 00:[facility]00 [facility] Smoking Status Start Date Stop Date Source Never smoked tobacco [facility] Medications Ordered Filled Start Stop Current Ordering Indication Dosage Frequency Signature Comments Components Source Medication Medication Date Date Medication? Clinician (SIG) Name Name glimepiride Yes 4mg Q.5D Take 4 mg M ethodi (AMARYL) 4 2-[address] MG tablet 11:08: (two) Hospita 06 times a l day. aspirin Yes 81mg QD Take 81 mg Meth shakira (ECOTRIN) 2-[address] 81 MG 10:52: daily. Hospita enteric 05 l coated tablet ibuprofen Yes 200mg Q6H Take 200 Met hodi (ADVIL,MOTR 2-[address] IN) 200 MG 10:52: mouth Hospit a tablet 05 every 6 l (six) hours as needed for mild pain. tamoxifen Yes QD Take by Metho di (NOLVADEX) 2-[address] 20 MG chemo 10:52: daily. Hosp francis tablet 05 l multivitami 2021- No 1{tbl} QD Take 1 M ethodi n 2-18 02-[address] (THERAGRAN) 10:51: 00:00 mouth Hosp francis tablet 25 :00 daily. l aspirin 81 Yes 81mg Take 81 mg U nivers mg EC 2-15 by mouth ity of tablet 01:49: daily. [place] 58 MD [facility] ascorbic Yes 1000mg Take 1,000 U nivers acid, 2-15 mg by ity of vitamin C, 01:49: mouth [place] (vitamin C) 58 daily. 1000 mg Anderso tablet n Cancer Center omeprazole Yes 20mg Take 20 mg U nivers (PriLOSEC) 2-15 by mouth ity o f 20 mg 01:49: every [place] capsule 58 [facility] TURMERIC Yes 1{tbl} Take 1 Unive rs ORAL 2-15 tablet by ity of 01:49: mouth [place] 58 daily. MD Yoanna amor [facility] vitamin E, 2021- No 100U Take 100 Un louise dl,tocopher 2-15 01-14 Units by ity of yl acet, 01:49: 00:00 mouth [place] (vitamin E, 58 :00 daily. MD de la cruz, Anderso acetate,) n 45 mg (100 Cancer unit) cap Center tamoxifen Yes Infiltratin 20mg Take 1 Univers (NOLVADEX) 2-12 g duct tablet (20 i ty of 20 mg 00:00: carcinoma, mg) by [place] tablet 00 NOS of mouth overlapping daily. Nithin o lesion of n breast Cancer <Male; Center Left> traMADol Yes Infiltratin 50mg Take 1 Univers (ULTRAM) 50 1-11 g duct tablet (50 ity of mg tablet 00:00: carcinoma, mg) by [place] 00 NOS of mouth overlapping every 6 Venu so lesion of (six) n breast hours as Cancer <Male; needed for Center Left> severe pain. olmesartan- 2020-07 Yes 1{tbl} Take 1 Un louise hydrochloro 2-15 tablet by ity of thiazide 00:00: mouth [place] (BENICAR 00 daily. MD PADGETT) Anderso 20-12.5 mg n per tablet Cancer Center atorvastati 2020-07 Yes 1{tbl} Take 1 Un louise n (LIPITOR) 1-21 tablet by ity of 10 mg 00:00: mouth [place] tablet 00 daily. MD Yoanna [facility] glimepiride 2020-07 Yes Take by Uni vers (AMARYL) 4 1-16 mouth ity of mg tablet 00:00: daily. [place] 00 Patient MD takes 1 Anderso tab in the n AM and 1 Cancer tabs in PM Center MULTIVIT-AZ 2019-07 Yes 1{capsu Take 1 U nivers NERALS/FA/L 1-04 le} capsule by it y of YCOPENE 14:59: mouth [place] (MEN'S 42 daily. Medical DAILY Branch MULTIVIT-AZ NERAL ORAL) acetaminoph 2019-07 Yes 650mg Take 650 U nivers en 650 mg 1-04 mg by ity of CR tablet 14:59: mouth [place] 42 daily. Medical Branch ibuprofen 2019-07 Yes 200mg Take 200 Uni vers 200 mg 1-04 mg by ity of tablet 14:59: mouth [place] 42 daily. Medical Branch glimepiride 2019-07 Yes 4mg Take 4 mg U nivers 4 mg tablet 1-04 by mouth ity of 14:59: daily with [place] 42 breakfast. Medical Branch olmesartan- 2019-07 Yes 1{tbl} Take 1 Un louise hydrochloro 1-04 tablet by ity of thiazide 14:59: mouth [place] 40-12.5 mg 42 daily. Medical per tablet Branch olmesartan 2019-07 Yes 20mg Take 20 mg U nivers 20 mg 1-04 by mouth ity of tablet 14:59: daily. [place] [address] Medical Branch atorvastati 2019-07 Yes 10mg Take 10 mg Univers n 10 mg 1-04 by mouth ity of tablet 14:59: at [place] 42 bedtime. Medical Branch omeprazole 2019-07 Yes 40mg Take 40 mg U nivers 40 mg 1-04 by mouth ity of capsule 14:59: daily. [place] [address] Medical Branch aspirin 81 2019-07 Yes 81mg Take 81 mg U nivers mg EC 1-04 by mouth ity of tablet 14:59: daily. [place] [address] Medical Branch omega-3s-dh 2019-07 Yes 1{capsu Take 1 U nivers a-epa-fish 1-04 le} capsule by ity of oil 14:59: mouth [place] (OMEGA-3 42 daily. Medical FISH OIL) Branch 300-1,000 mg Cap folic acid 2019-07 Yes 400ug Take 400 Un louise 400 mcg 1-04 mcg by ity of tablet 14:59: mouth [place] 42 daily. Medical Branch VITAMIN E, 2019-07 Yes 100U Take 100 Uni vers DL,TOCOPHER 1-04 Units by ity of YL ACET, 14:59: mouth [place] (DL-VITAMIN 42 daily. Medica l E ACETATE) Branch 100 unit capsule MULTIVIT-AZ 2019-07 Yes 1{capsu Take 1 U nivers NERALS/FA/L 1-04 le} capsule by it y of YCOPENE 14:59: mouth [place] (MEN'S 42 daily. Medical DAILY Branch MULTIVIT-AZ NERAL ORAL) acetaminoph 2019-07 Yes 650mg Take 650 U nivers en 650 mg 1-04 mg by ity of CR tablet 14:59: mouth [place] 42 daily. Medical Branch ibuprofen 2019-07 Yes 200mg Take 200 Uni vers 200 mg 1-04 mg by ity of tablet 14:59: mouth [place] 42 daily. Medical Branch glimepiride 2019-07 Yes 4mg Take 4 mg U nivers 4 mg tablet 1-04 by mouth ity of 14:59: daily with [place] [address] breakfast. Medical Branch olmesartan- 2019-07 Yes 1{tbl} Take 1 Un louise hydrochloro 1-04 tablet by ity of thiazide 14:59: mouth [place] 40-12.5 mg 42 daily. Medical per tablet Branch olmesartan 2019-07 Yes 20mg Take 20 mg U nivers 20 mg 1-04 by mouth ity of tablet 14:59: daily. [address] Branch atorvastati 2019-07 Yes 10mg Take 10 mg Univers n 10 mg 1-04 by mouth ity of tablet 14:59: at [place] [address] bedtime. [facility] Branch omeprazole 2019-07 Yes 40mg Take 40 mg U nivers 40 mg 1-04 by mouth ity of capsule 14:59: daily. [address] aspirin 81 2019-07 Yes 81mg Take 81 mg U nivers mg EC 1-04 by mouth ity of tablet 14:59: daily. [address] omega-3s-dh 2019-07 Yes 1{capsu Take 1 U nivers a-epa-fish 1-04 le} capsule by ity of oil 14:59: mouth [place] (OMEGA-3 42 daily. [facility] FISH OIL) Branch 300-1,000 mg Cap folic acid 2019-07 Yes 400ug Take 400 Un louise 400 mcg 1-04 mcg by ity of tablet 14:59: mouth [place] 42 daily. [facility] Branch VITAMIN E, 2019-07 Yes 100U Take 100 Uni vers DL,TOCOPHER 1-04 Units by ity of YL ACET, 14:59: mouth [place] (DL-VITAMIN 42 daily. Medica l E ACETATE) [place] 100 unit capsule neomycin-po 2019-07 Yes PRN, Univ s lymyxin-dex 1-04 Starting ity of amethasone 14:15: Mon [place] (MAXITROL) 05/06/20 at [facility] ica 3.5 [facility]15[facility] mg/g-10,000 Until unit/g-0.1 Discontinu % ed, ophthalmic Routine, ointment Intra-op gentamicin 2019-07 Yes PRN, Univers injection 1-04 Starting ity of 14:13: Mon [place] 05/06/20 at [facility] 0813, [place] Until Discontinu ed, JM, Intra-op dexamethaso 2019-07 Yes PRN, Univer s ne -04 Starting ity of (DECADRON 14:13: Wed [place] PHOSPHATE) 00 05/06/20 at [facility] ical injection 0813, [place] Until Discontinu ed, Routine, Intra-op ceFAZolin 2019-07 Yes PRN, Univers (ANCEF) 1-04 Starting ity of injection 14:13: Wed [place] 05/06/20 at [facility] 0813, [place] Until Discontinu ed, JM, Intra-op carbachoL 2019-07 Yes PRN, Univers (MIOSTAT) - Starting ity of 0.01 % 14:13: Wed [place] intraocular 00 05/06/20 at Nm dical injection 0813, [place] Until Discontinu ed, Routine, Intra-op DUOVISC 2019-07 Yes PRN, Univers (DUOVISC 07-06 Starting ity of VISCO 14:11: Wed [place] ELASTIC) 3 05/06/20 at [facility] ical %-4 %(0.5 0811, Branch mL) 1 % Until (0.55 mL) Discontinu intraocular ed, injection Routine, Intra-op sodium 2019-07 Yes PRN, Univers chloride - Starting ity of (NS) 14:11: Mon [place] injection 00 05/06/20 at [facility] 0811, [place] Until Discontinu ed, Routine, Intra-op EPINEPHrine 2019-07 Yes PRN, Univer s 1:1,000 (1 - Starting ity o f mg/mL) 14:10: Mon (ADRENALIN) 05/06/20 at Nm dical injection 0810, [place] Until Discontinu ed, Routine, Intra-op balanced 2019-07 Yes PRN, Univers salt irrig - Starting ity o f soln comb1 14:09: Mon (BSS PLUS) 00 05/06/20 at [facility] ical ophthalmic 0809, [place] solution Until 500 mL bag Discontinu ed, Routine, Intra-op water for 2019-07 Yes PRN, Univers irrigation -04 Starting ity o f irrigation 13:56: Mon [place] solution 05/06/20 at Medic al 0756, [place] Until Discontinu ed, Routine, Intra-op eye block 2019-07 Yes PRN, Univers syringe 11 - Starting ity o f mL 13:54: Mon [place] 05/06/20 at Medical 0754, Branch Until Discontinu ed, Intra-op Hyaluronida 2019- Yes PRN, Univer s se, Human 07-06 Starting ity of Recomb. 13:54: Mon [place] (HYLENEX) 05/06/20 at [facility] injection 0754, Branch Until Discontinu ed, Routine, Intra-op propofoL IV 2019-07- No Intravenou Univers infusion 07-06 s, ONCE ity of 13:50: 15:09 INTRA [place] 00 :46 PROCEDURE, Medical Starting [place] Mon05/06/20 at 0750, Until Mon05/06/20 at 0909, Routine, Intra-op remifentani 2019-07- No Intravenou Univers L (ULTIVA) 07-06 s, ONCE ity o f injection 13:49: 15:09 INTRA [place] 00 :46 PROCEDURE, Medical Starting [place] Mon05/06/20 at 0749, Until Mon05/06/20 at 0909, Routine, Intra-op lidocaine 2019-07- No ONCE INTRA U nivers 1% 07-06 PROCEDURE, ity of (XYLOCAINE) 13:48: 15:09 Starting [place] 100 mg/10 00 :46 [facility] Medical mL (1 %) 05/06/20 at [facility] h injection 0748, Until Mon05/06/20 at 0909, Routine, Intra-op lactated 2019-07 2020- No IV Univers ringers IV 07-06 Infusion, ity of infusion 13:46: 15:09 CONTINUOUS [place] 00 :46 PRN, Medical Starting [place] Mon05/06/20 at 0746, Until Mon05/06/20 at 0909, Routine, Intra-op mydriatic 2019-07 2020- No .5mL 0.5 mL, Univ ers #5 07-06 Left Eye, ity of ophthalmic 13:00: 12:51 ONCE, 1 Ibrahima as solution 00 :00 dose, Wed Medica l 0.5 mL 05/06/20 at Branch syringe 0700, Routine, DSU Pre-op lactated 2019-07 2020- No 1000mL at 42 Unive rs ringers IV 07-06 mL/hr, ity of infusion 12:45: 12:51 1,000 mL, Ibrahima as 1,000 mL 00 :00 IV Medical Infusion, Branch ONCE, 1 dose, 05/06/20 at 0645, Routine, DSU Pre-op aspirin 81 2019-07 Yes 81mg Take 81 mg U nivers mg EC 1-02 by mouth ity of tablet 16:59: daily. [place] [address] Medical Branch acetaminoph 2019-07 Yes 650mg Take 650 U nivers en 650 mg 1-02 mg by ity of CR tablet 16:58: mouth [place] 58 daily. Medical Branch ibuprofen 2019-07 Yes 200mg Take 200 Uni vers 200 mg 1-02 mg by ity of tablet 16:58: mouth [place] 58 daily. Medical Branch olmesartan Yes 20mg Take 20 mg U nivers 20 mg 5-10 by mouth ity of tablet 14:52: daily. [place] [address] Medical Branch atorvastati Yes 10mg Take 10 mg Univers n 10 mg 5-10 by mouth ity of tablet 14:52: at [place] [address] bedtime. Medical Branch omeprazole Yes 40mg Take 40 mg U nivers 40 mg 5-10 by mouth ity of capsule 14:52: daily. [place] [address] Medical Branch aspirin 81 Yes 81mg Take 81 mg U nivers mg EC 5-10 by mouth ity of tablet 14:52: daily. [address] Branch omega-3s-dh Yes 1{capsu Take 1 U nivers a-epa-fish 5-10 le} capsule by ity of oil 14:52: mouth [place] (OMEGA-3 27 daily. Medical FISH OIL) Branch 300-1,000 mg Cap folic acid Yes 400ug Take 400 Un louise 400 mcg 5-10 mcg by ity of tablet 14:52: mouth [place] 27 daily. Medical Branch VITAMIN E, Yes 100U Take 100 Uni vers DL,TOCOPHER 5-10 Units by ity of YL ACET, 14:52: mouth [place] (DL-VITAMIN 27 daily. Medica l E ACETATE) Branch 100 unit capsule MULTIVIT-AZ Yes 1{capsu Take 1 U nivers NERALS/FA/L 5-10 le} capsule by it y of YCOPENE 14:52: mouth [place] (MEN'S 27 daily. Medical DAILY Branch MULTIVIT-AZ NERAL ORAL) acetaminoph 2017-0 Yes 650mg Take 650 U nivers en 650 mg 5-10 mg by ity of CR tablet 14:52: mouth [place] 27 daily. Medical Branch ibuprofen 2017 Yes 200mg Take 200 Uni vers 200 mg 5-10 mg by ity of tablet 14:52: mouth [place] 27 daily. Medical Branch glimepiride Yes 4mg Take 4 mg U nivers 4 mg tablet 5-10 by mouth ity of 14:52: daily with [place] [address] breakfast. Medical Branch olmesartan- 2017 Yes 1{tbl} Take 1 Un louise hydrochloro 5-10 tablet by ity of thiazide 14:52: mouth [place] 40-12.5 mg 27 daily. Medical per tablet Branch olmesartan 2017 Yes 20mg Take 20 mg U nivers 20 mg 5-10 by mouth ity of tablet 14:52: daily. [place] [address] Medical Branch atorvastati Yes 10mg Take 10 mg Univers n 10 mg 5-10 by mouth ity of tablet 14:52: at [place] [address] bedtime. Medical Branch omeprazole Yes 40mg Take 40 mg U nivers 40 mg 5-10 by mouth ity of capsule 14:52: daily. [place] [address] Medical Branch omega-3s-dh Yes 1{capsu Take 1 U nivers a-epa-fish 5-10 le} capsule by ity of oil 14:52: mouth [place] (OMEGA-3 27 daily. Medical FISH OIL) Branch 300-1,000 mg Cap folic acid Yes 400ug Take 400 Un louise 400 mcg 5-10 mcg by ity of tablet 14:52: mouth [place] 27 daily. Medical Branch VITAMIN E, Yes 100U Take 100 Uni vers DL,TOCOPHER 5-10 Units by ity of YL ACET, 14:52: mouth [place] (DL-VITAMIN 27 daily. Medica l E ACETATE) Branch 100 unit capsule MULTIVIT-AZ 2017 Yes 1{capsu Take 1 U nivers NERALS/FA/L 5-10 le} capsule by it y of YCOPENE 14:52: mouth [place] (MEN'S 27 daily. Medical DAILY Branch MULTIVIT-AZ NERAL ORAL) glimepiride 2017 Yes 4mg Take 4 mg U nivers 4 mg tablet 5-10 by mouth ity of 14:52: daily with [place] [address] breakfast. Medical Branch olmesartan- Yes 1{tbl} Take 1 Un louise hydrochloro 5-10 tablet by ity of thiazide 14:52: mouth [place] 40-12.5 mg 27 daily. Medical per tablet Branch DUREZOL 2021- No Methodi 0.05 % 11-07 st drops 00:00: 00:00 Hospita 00 :00 l ofloxacin 2021- No Methodi (OCUFLOX) 11-05 st 0.3 % 00:00: 00:00 Hospita ophthalmic 00 :00 l solution ILEVRO 0.3 2021- No Method i % 11-05 st drops,suspe 00:00: 00:00 Hospi ta nsion 00 :00 l atorvastati Yes Method i n (LIPITOR) 09-06 st 10 MG 00:00: Hospita tablet 00 l omeprazole Yes Methodi (PriLOSEC) 09-06 st 40 MG 00:00: Hospita capsule 00 l olmesartan Yes Methodi (BENICAR) 09-06 st 20 MG 00:00: Hospita tablet 00 l Immunizations Ordered Filled Immunization Date Status Comments Sourc e Immunization Name Name Pfizer SARS-CoV-2 2021-03-29 Completed Univer sity of Vaccination (Purple 00:00:00 Lisandro Damon [facility] PFIZER COVID-19 2020-08-20 Completed [facility]:00 Hospital PFIZER COVID-19 2020-07-30 Completed [facility] VACC[facility] 00:00:00 Hospital Vital Signs Vital Name Observation Time Observation Value Comments Source Systolic blood 2020-05-06 14:40:00 157 mm[Hg] Univer sity of pressure [facility] Diastolic blood 2020-05-06 14:40:00 75 mm[Hg] Unive rsity of pressure [facility] Heart rate 2020-05-06 14:40:00 67 /min Universi ty [facility] Respiratory rate 2020-05-06 14:40:00 20 /min Univ ersity [facility] Oxygen saturation in 2020-05-06 14:40:00 100 /min [facility] Arterial blood by [facility] Pulse oximetry Branch Body temperature 2020-05-06 14:21:00 36.22 [place] [facility] Body height 2020-05-04 16:45:00 193 cm Universi ty [facility] Body weight 2020-05-04 16:45:00 138.347 kg Universi ty [facility] BMI 2020-05-04 16:45:00 37.13 kg/m2 General acute hospital Respiratory rate 2020-05-06 14:18:00 9 /min [facility] Systolic blood 2022-03-03 16:36:29 143 mm[Hg] Univer sity of pressure [place] [facility] Diastolic blood 2022-03-03 16:36:29 81 mm[Hg] Unive rsity of pressure [place] [facility] Heart rate 2022-03-03 16:36:29 77 /min [facility] Body temperature 2022-03-03 16:36:29 36.89 [place] [facility] Respiratory rate 2022-03-03 16:36:29 18 /min [facility] Body weight 2022-03-03 16:34:00 130 [facility] BMI 2022-03-03 16:34:00 36.20 kg/m2 [facility] Systolic blood 2021-10-12 19:00:00 135 mm[Hg] Method ist [facility] pressure Diastolic blood 2021-10-12 19:00:00 85 mm[facility]Hg[facility] pressure Heart rate 2021-10-12 19:00:00 89 /[facility] Res[facility] rate 2021-10-12 19:00:00 16 /min [facility] height 2021-08-20 16:52:00 [facility] Body [facility] 2021-08-20 16:52:00 130[facility]817 [facility] BMI 2021-08-20 16:52:00 35.11 kg/m2 [facility] Oxygen saturation in 2021-07-28 15:50:25 98 /min University of Arterial blood by Lisandro green Pulse oximetry [facility] Body height 2021-07-14 04:09:00 189.5 cm [facility] Procedures Procedure Date / Time Performing Source Performed Clinician COMPLETE BLOOD COUNT W/ 2022-03-03 14:35:00 Jo [facility] DIFFERENTIAL [facility] COMPREHENSIVE METABOLIC 2022-03-03 14:35:00 Jo [facility] PANEL [facility] THYROID STIMULATING HORMONE 2022-03-03 14:35:00 Jo [facility] VITAMIN D 25 HYDROXY LEVEL 2022-03-03 14:35:00 Jo [facility] LIPID PANEL 2022-03-03 14:35:00 Jo [facility] Results CBC 2022-03-03 14:35:00 Jo [facility] MANUAL DIFFERENTIAL 2022-03-03 14:35:00 Jo [facility] GLUCOSE LEVEL 2022-03-03 14:35:00 Jo [facility] BLOOD UREA NITROGEN 2022-03-03 14:35:00 Jo [facility] ELECTROLYTE PANEL 2022-03-03 14:35:00 Jo [facility] SERUM CREATININE 2022-03-03 14:35:00 Jo [facility] .GLOMERULAR FILTRATION RATE 2022-03-03 14:35:00 Jo [facility] CALCIUM LEVEL TOTAL 2022-03-03 14:35:00 Jo [facility] ALBUMIN LEVEL 2022-03-03 14:35:00 Jo [facility] ALKALINE PHOSPHATASE 2022-03-03 14:35:00 Jo [facility] [place] [facility] ALANINE AMINOTRANSFERASE 2022-03-03 14:35:00 Jo [facility] ASPARTATE AMINOTRANSFERASE 2022-03-03 14:35:00 Mack Osorio [facility] TOTAL PROTEIN 2022-03-03 14:35:00 [facility] FRACTIONATED BILIRUBIN 2022-03-03 14:35:00 Mack Osorio [facility] MRI LUMBAR SPINE W WO 2021-10-08 16:07:20 Pepe Whaley [facility] CONTRAST MRI BRAIN W WO CONTRAST 2021-10-08 16:06:44 JuddPepe [facility] ZINVITAE 2021-07-28 17:44:00 [facility] IHC KI-67 MATERIAL 2021-07-24 15:42:58 Jo Mack [facility] REQUEST [facility] AP IHC HER2/YARIEL MATERIAL 2021-07-24 15:42:58 Jo Mack [facility] REQUEST [facility] AP ONCOTYPEDX (SEND OUT) 2021-07-24 15:42:58 Jo Mack [facility] MATERIAL REQUEST [facility] POC GLUCOSE SCREEN 2021-07-14 03:41:00 Maryann Mara [facility] POC GLUCOSE SCREEN 2021-07-13 23:18:00 Maryann [facility] PATHOLOGY SURGICAL 2021-07-13 21:36:00 Maryann [facility] INTERPRETATION [facility] HP CYTOGENETICS BLOOD 2021-07-13 20:43:00 Dawood Gotti [facility] COLLECTION True HOUGH [facility] HP CG HER2 FISH 2021-07-13 20:43:00 Dawood Gotti [facility] INTERPRETATION AND REPORT True [facility] PERIPHERAL BLOCK 2021-07-13 19:35:00 Nona Domingo [facility] TOTAL MASTECTOMY 2021-07-13 19:29:00 Maryann Mara [facility] INTRAOPERATIVE LYMPHATIC 2021-07-13 19:29:[address] [facility] SENTINEL NODE BIOPSY - 2021-07-13 19:29:00 Mara Salazar [facility] AXILLA [facility] INTRAOPERATIVE US 2021-07-13 19:05:05 Nona Domingo [facility] BREAST SPECIMEN RADIOGRAPH 2021-07-13 18:15:45 [facility]ana [facility] POC GLUCOSE SCREEN 2021-07-13 17:09:00 Mara Salazar [facility] NM LYMPHOSCINTIGRAPHY BREAST 2021-07-12 17:04:00 Svitlana Washington [facility] LYMPHOSEEK [facility] COVID-19 (SARS-COV-2) PCR 2021-07-12 15:14:00 Maryann Mara [facility] ASYMPTOMATIC [facility] PROTHROMBIN TIME 2021-06-29 17:03:00 [facility] APTT 2021-06-29 17:03:00 Jose Miguel [facility] GLUCOSE LEVEL 2021-06-29 17:03:00 Hortensia Chavez [facility] BLOOD UREA NITROGEN 2021-06-29 17:03:00 Hortensia Chavez [facility] ELECTROLYTE PANEL 2021-06-29 17:03:00 Hortensia Chavez [facility] SERUM CREATININE 2021-06-29 17:03:00 [facility] .GLOMERULAR FILTRATION RATE 2021-06-29 17:03:00 Hortensia Chavez [facility] CALCIUM LEVEL TOTAL 2021-06-29 17:03:00 Hortensia Chavez [facility] ALBUMIN LEVEL 2021-06-29 17:03:00 Hortensia Chavez [facility] ALKALINE PHOSPHATASE 2021-06-29 17:03:00 Hortensia Chavez [facility] ALANINE AMINOTRANSFERASE 2021-06-29 17:03:00 Hortensia Chavez [facility] ASPARTATE AMINOTRANSFERASE 2021-06-29 17:03:00 [facility] TOTAL PROTEIN 2021-06-29 17:03:00 Hortensia Chavez [facility] FRACTIONATED BILIRUBIN 2021-06-29 17:03:00 Hortensia Chavez [facility] HEMOGLOBIN A1C 2021-06-28 22:20:00 Hortensia Chavez [facility] COMPREHENSIVE METABOLIC 2021-06-28 22:20:00 Hortensia Chavez [facility] PANEL [facility] COMPLETE BLOOD COUNT W/ 2021-06-28 22:20:00 Hortensia Chavez [facility] DIFFERENTIAL [facility] GLUCOSE LEVEL 2021-06-28 22:20:00 Hortensia Chavez [facility] BLOOD UREA NITROGEN 2021-06-28 22:20:00 [facility] ELECTROLYTE PANEL 2021-06-28 22:20:00 Hortensia Chavez [facility] SERUM CREATININE 2021-06-28 22:20:00 Hortensia Chavez [facility] .GLOMERULAR FILTRATION RATE 2021-06-28 22:20:00 Hortensia Chavez [facility] CALCIUM LEVEL TOTAL 2021-06-28 22:20:00 Hortensia Chavez [facility] ALBUMIN LEVEL 2021-06-28 22:20:00 Hortensia Chavez [facility] ALKALINE PHOSPHATASE 2021-06-28 22:20:00 Hortensia Chavez [facility] ALANINE AMINOTRANSFERASE 2021-06-28 22:20:00 Hortensia Chavez [facility] ASPARTATE AMINOTRANSFERASE 2021-06-28 22:20:[address] [facility] [place] TOTAL PROTEIN 2021-06-28 22:20:00 Hortensia Chavez [facility] er [place] FRACTIONATED BILIRUBIN 2021-06-28 22:20:00 Hortensia Chavez [facility] Results CBC 2021-06-28 22:20:00 Hortensia Chavez [facility] er Center MANUAL DIFFERENTIAL 2021-06-28 22:20:00 Hortensia Chavez [facility] er [place] XR CHEST 2 VW 2021-06-28 21:50:42 Hortensia Chavez [facility] EKG, 12-LEAD (SCHEDULED) 2021-06-28 00:00:00 Hortensia Chavez [facility] US BREAST COMPLETE LEFT 2021-06-23 15:52:09 Hortensia Chavez [facility] US BREAST LIMITED RIGHT 2021-06-23 15:52:09 Hortensia Chavez [facility] er Center US CHEST 2021-06-23 15:52:09 Hortensia Chavez [facility] MAMMO DIGITAL DIAGNOSTIC 2021-06-23 14:13:33 Hortensia Chavez [facility] BILATERAL W SHERRON [facility] OSI US BREAST BIOPSY 2021-06-09 13:11:00 Sasha Brown [facility] PATHOLOGY OUTSIDE 2021-06-09 00:00:00 Fiona Sorensen [facility] INTERPRETATION [facility] OSI MAMMO BILATERAL 2021-06-01 13:11:00 Sasha Brown [facility] OSI US BREAST 2021-06-01 13:11:00 Sasha Brown [facility] POCT GLUCOSE(AGE >30DAYS) 2020-05-06 00:00:00 Galle, [place] [facility] Plan of Care Planned Activity Planned Date Details Comments Source Future Scheduled 2022-03-03 COVID-19 Vaccination [facility] Test 12:24:01 (4 - Booster for [facility] Pfizer series) [code Center = COVID-19 Vaccination (4 - Booster for Pfizer series)] Future Scheduled 2022-03-03 HEPATITIS B VACCINES [facility] Test 09:04:20 (1 of 3 - 3-dose series) [code = HEPATITIS B VACCINES (1 of 3 - 3-dose series)] Future Scheduled 2022-03-03 Hepatitis C screening [facility] Test 09:04:20 (procedure) [code = 983654770] Future Scheduled 2022-03-03 COLONOSCOPY SCREENING [facility] Test 09:04:20 [code = COLONOSCOPY SCREENING] Future Scheduled 2022-03-03 SHINGLES VACCINES (1 [facility] Test 09:04:20 of 2) [code = SHINGLES VACCINES (1 of 2)] Future Scheduled 2022-03-03 65+ [facility]OC[facility]CCAL [facility] 09:04:20 VACCINE (1 - PCV) [code = 65+ PNEUMOCOCCAL VACCINE (1 - PCV)] Future Scheduled 2022-03-03 COVID-19 VACCINE (4 - [facility] Test 09:04:20 Booster for Pfizer series) [code = COVID-19 VACCINE (4 - Booster for Pfizer series)] Future Scheduled 2022-03-03 INFLUENZA VACCINE [facility] Test 09:04:20 [code = INFLUENZA VACCINE] Encounters Start End Encounter Admission Attending Care Care Encounter Source Date/Time Date/Time Type Type Clinicians Facility Department ID 2021-08-18 Outpatient SYSTEM, NONA CASTELLANO [id number] 12:57:27 PROVIDER Nithin o n 2021-07-16 Outpatient SYSTEM, NONA CASTELLANO [id number] 11:04:49 PROVIDER Nithin o n 2021-07-07 Outpatient NONA CASTELLANO [id number] 10:59:21 Anderso n 2021-06-15 Outpatient SYSTEM, NONA CASTELLANO [id number] 17:00:22 PROVIDER Nithin o n 2021-05-01 Outpatient R RICHARD SHAHID [id number] Univers 02:41:17 LEOBARDO lovelace [facility] 2022-03-03 2022-03-03 [facility], 1.2.840.1 [id number] Univers 09:04:16 23:59:00 Encounter Mack 77819.1.1 it y of 3.412.2.7 [place] .3.843341 MD [facility] 2022-03-03 2022-03-03 [facility], 1.2.840.1 [id number] Univers 09:04:16 23:59:00 Encounter Mack 14141.1.1 it y of 3.412.2.7 [place] .3.397015 MD Chatterjee8 [facility] 2022-03-03 2022-03-03 Office [facility], 1.2.840.1 [id number] Univers 11:00:00 12:25:16 Visit Mack 04752.1.1 ity of 3.412.2.7 [place] .3.305019 MD [facility] 2022-03-03 2022-03-03 Office [facility], 1.2.840.1 [id number] Univers 11:00:00 12:25:16 Visit Mack 11326.1.1 ity of 3.412.2.7 [place] .3.199499 MD [facility] 2022-03-03 2022-03-03 Travel 1.2.840.1 1.2.998.276 [id number] [id number] Univers 00:00:00 00:00:00 23243.1.1 350.1.13.41 ity of 3.412.2.7 [place]7.3.698 [place] .3.4725[place] 084.8 MD [facility] 2022-03-03 2022-03-03 Travel 1.2.840.1 1.2.594.877 1534 [id number] Univers 00:00:00 00:00:00 57827.1.1 350.1.13.41 ity of 3.412.2.7 [place]7.3.698 [place] .3.429329 08Dona [facility] 2021-10-12 2021-10-12 Procedure Jaqueline Trujillo 1.2.840.1 [id number] Methodi 13:00:00 14:36:09 visit Pepe Whaley 75339.1.[address] 3.430.2.7 Hospit a .3.342845 l .8 2021-10-12 2021-10-12 Travel 1.2.840.1 1.2.378.875 2692 [id number] Methodi 00:00:00 00:00:[address] 3.430.2.7 0.2.7.3.698 Ho spita .3.992299 084.8 l .8 2021-10-12 2021-10-12 Outpatient JAQUELINE TRUJILLO [facility] [id number] [place] 00:00:00 00:00:[address] 2021-10-08 2021-10-08 [facility] Jaqueline Trujillo 1.2.840.1 [id number] Methodi 07:19:58 23:59:[address] 3.430.2.7 Hospit a .3.206324 l .8 2021-10-08 2021-10-08 [facility] Jaqueline Trujillo 1.2.840.1 [id number] Methodi 07:19:42 23:59:[address] 3.430.2.7 Hospit a .3.540146 l .8 2021-10-08 2021-10-08 Outpatient JAQUELINE TRUJILLO [facility] [id number] [place] 00:00:00 00:00:[address] 2021-10-08 2021-10-08 Outpatient JAQUELINE TRUJILLO [facility] [id number] [place] 00:00:00 00:00:[address] 2021-08-20 2021-08-20 Office Jaqueline Trujillo 1.2.840.1 [id number] Methodi 11:00:00 11:40:[address] 3.430.2.7 Hospit a .3.633886 l .8 2021-08-20 2021-08-20 Social Nay, 1.2.840.1 [id number] Methodi 00:00:00 00:00:00 Work Mhakea 18332.1.[address] 3.430.2.7 Hospit a .3.207139 l .8 2021-08-20 2021-08-20 Travel 1.2.840.1 1.2.750.502 3642 [id number] Methodi 00:00:00 00:00:[address] 3.430.2.7 0.2.7.3.698 Ho spita .3.379624 084.8 l .8 2021-08-20 2021-08-20 Outpatient JAQUELINE TRUJILLO [facility] [id number] [place] 00:00:00 00:00:[address] 2021-08-14 2021-08-14 Alfreda Flores, 1.2.840.1 [id number] Univers 00:00:00 00:00:00 Only Apolinar 35294.1.1 ity of 3.412.2.7 [place] .3.326867 MD [facility] 2021-08-14 2021-08-14 Alfreda Flores, 1.2.840.1 [id number] Univers 00:00:00 00:00:00 Only Apolinar 58568.1.1 ity of 3.412.2.7 [place] .3.490763 MD [facility] 2021-08-12 2021-08-12 Bess Osorio, 1.2.840.1 [id number] Univers 15:30:00 15:30:00 tab Giron 90267.1.1 ity of 3.412.2.7 [place] .3.752656 MD [facility] 2021-08-12 2021-08-12 Bess Osorio, 1.2.840.1 [id number] Univers 15:30:00 15:30:00 tab Giron 91069.1.1 ity of 3.412.2.7 [place] .3.195095 MD Chatterjee8 [facility] 2021-08-12 2021-08-12 Alfreda Flores, 1.2.840.1 [id number] Univers 00:00:00 00:00:00 Only Apolinar 83713.1.1 ity of 3.412.2.7 [place] .3.480567 MD Chatterjee8 [facility] 2021-08-12 2021-08-12 Alfreda Flores 1.2.840.1 [id number] Univers 00:00:00 00:00:00 Only Apolinar 49036.1.1 ity of 3.412.2.7 [place] .3.435031 MD Chatterjee8 [facility] 2021-08-11 2021-08-11 Telephone Alessio, 1.2.840.1 [id number] Univers 00:00:00 00:00:00 Kathleen Cornejo 17479.1.1 i ty of 3.412.2.7 [place] .3.061865 MD Chat[facility]jee8 [facility] 2021-08-11 2021-08-11 Telephone Alessio, 1.2.840.1 [id number] [id number] Univers 00:00:00 00:00:00 Kathleen Cornejo 39666.1.1 i ty of 3.412.2.7 [place] .3.952198 MD [facility] 2021-08-03 2021-08-03 [facility] Alyssa 1.2.840.1 [id number] Univers 12:44:00 23:59:00 Encounter Osvaldo yost50.1.1 it y of Lanny F 3.412.2.7 [place] .3.305556 MD [facility] 2021-08-03 2021-08-03 [facility] Alyssa 1.2.840.1 [id number] Univers 12:44:00 23:59:00 Encounter Osvaldo yost50.1.1 it y of Lanny F 3.412.2.7 [place] .3.137939 MD Chatterjee8 [facility] 2021-07-30 2021-07-30 [facility], 1.2.840.1 [id number] [id number] Univers 14:28:00 23:59:00 Encounter Dawood 08401.1.1 it y of True 3.412.2.7 [place] .3.595513 .8 [facility] 2021-07-30 2021-07-30 [facility], 1.2.840.1 [id number] Univers 14:28:00 23:59:00 Encounter Dawood 69987.1.1 it y of True 3.412.2.7 [place] .3.330072 .8 [facility] 2021-07-29 2021-07-29 [facility], 1.2.840.1 [id number] Univers 17:30:00 17:44:06 ne Mack 57796.1.1 ity of 3.412.2.7 [place] .3.680665 MD Chatterjee8 [facility] 2021-07-29 2021-07-29 [facility], 1.2.840.1 [id number] Univers 17:30:00 17:44:06 ne Mack 94372.1.1 ity of 3.412.2.7 [place] .3.429159 MD Chatterjee8 [facility] 2021-07-28 2021-07-28 [facility] 1.2.840.1 [id number] Univers 10:30:00 23:59:00 Encounter o, 13238.1.1 it [place] of [place].7 [place] .3.640371 MD Chatterjee8 [facility] 2021-07-28 2021-07-[address] [facility] 1.2.840.1 [id number] Univers 10:30:00 23:59:00 Encounter o, 87924.1.1 it [place] of [place].7 [place] .3.517923 MD [facility] 2021-07-28 2021-07-28 Office EL Salazar, 1.2.840.1 [id number] Univers 10:00:00 11:04:53 Visit Mara 41048.1.1 ity of 3.412.2.7 [place] .3.127569 MD Chatterjee8 [facility] 2021-07-28 2021-07-28 Office Salazar, 1.2.840.1 [id number] Univers 10:00:00 11:04:53 Visit Mara 00969.1.1 ity of 3.412.2.7 [place] .3.235837 MD [facility] 2021-07-28 2021-07-28 Travel 1.2.840.1 1.2.887.839 0004 [id number] Univers 00:00:00 00:00:00 93763.1.1 350.1.13.41 ity of 3.412.2.7 2.[place].7.3.698 [place] .3.300559 084.8 MD [facility] 2021-07-28 2021-07-28 Travel 1.2.840.1 1.2.287.755 2999 [id number] Univers 00:00:00 00:00:00 59400.1.1 350.1.13.41 ity of 3.412.2.7 2.[place].7.3.698 [place] .3.304380 084.8 MD [facility] 2021-07-26 2021-07-26 Telephone Hortensia Nation 1.2.840.1 [id number] Univers 11:00:00 11:00:54 Radha Wilson 04398.1.1 ity of 3.412.2.7 [place] .3.477258 MD [facility] 2021-07-26 2021-07-26 Telephone Hortensia Chavez 1.2.840.1 [id number] Univers 11:00:00 11:00:54 Katie, Radha Escobar 65544.1.1 ity of 3.412.2.7 [place] .3.147177 MD Chatterjee8 [facility] 2021-07-26 2021-07-26 Orders Orlandoo, 1.2.840.1 [id number] Univers 00:00:00 00:00:00 Only Radha Escobar 26183.1.1 ity of 3.412.2.7 [place] .3.945243 MD Chatterjee8 [facility] 2021-07-26 2021-07-26 Orders Katie, 1.2.840.1 [id number] Univers 00:00:00 00:00:00 Only Radha Escobar 73900.1.1 ity of 3.412.2.7 [place] .3.035461 MD Chatterjee8 [facility] 2021-07-24 2021-07-24 Orders Jo, 1.2.840.1 [id number] Univers 00:00:00 00:00:00 Only Mack 32598.1.1 ity of 3.412.2.7 [place] .3.798442 MD Chatterjee8 [facility] 2021-07-24 2021-07-24 Orders Jo, 1.2.840.1 [id number] Univers 00:00:00 00:00:00 Only Mack 98153.1.1 ity of 3.412.2.7 [place] .3.931136 MD Chatterjee8 [facility] 2021-07-16 2021-07-16 Jennifer Adamson 1.2.840.1 [id number] Univers 15:00:00 15:28:43 ne 39221.1.1 ity of 3.412.2.7 [place] .3.582009 MD [facility] 2021-07-16 2021-07-16 Jennifer Jiang 1.2.840.1 [id number] Univers 15:00:00 15:28:43 ne 06777.1.1 ity of 3.412.2.7 [place] .3.496170 MD Chatterjee8 [facility] 2021-07-15 2021-07-15 Telephone Ahuja, 1.2.840.1 [id number] Univers 00:00:00 00:00:00 Flip A 94790.1.1 ity of 3.412.2.7 [place] .3.685993 MD Chatterjee8 [facility] 2021-07-15 2021-07-15 Telephone Ileana Rodriguez 1.2.840.1 [id number] Univers 00:00:00 00:00:00 L 79637.1.1 ity of 3.412.2.7 [place] .3.693600 MD Chatterjee8 [facility] 2021-07-15 2021-07-15 Telephone Ahuja, 1.2.840.1 [id number] Univers 00:00:00 00:00:00 Flip A 30823.1.1 ity of 3.412.2.7 [place] .3.013069 MD Chatterjee8 [facility] 2021-07-15 2021-07-15 Telephone Ileana Rodriguez 1.2.840.1 [id number] Univers 00:00:00 00:00:00 L 70864.1.1 ity of 3.412.2.7 [place] .3.888253 MD Bliss [facility] 2021-07-13 2021-07-14 [facility] TESSIE Salazar, 1.2.840.1 [id number] Univers 10:45:00 11:31:00 Encounter Mara 47024.1.1 it y of 3.412.2.7 [place] .3.690023 MD Chatterjee8 [facility] 2021-07-13 2021-07-14 [facility], 1.2.840.1 [id number] Univers 10:45:00 11:31:00 Encounter Mara 14326.1.1 it y of 3.412.2.7 [place] .3.293959 MD Chatterjee8 [facility] 2021-07-13 2021-07-13 Hospital Felix, 1.2.840.1 [id number] Univers 12:15:45 23:59:00 Encounter Svitlana 00973.1.1 it y of 3.412.2.7 [place] .3Shena634941 MD Chatterjee8 [facility] 2021-07-13 2021-07-13 [facility], 1.2.840.1 [id number] Univers 12:15:45 23:59:00 Encounter Svitlana 73671.1.1 it y of 3.412.2.7 [place] .3.489427 MD Chatterjee8 [facility] 2021-07-13 2021-07-13 Anesthesia Joan Hickman 1.2.840.1 [id number] Univers 13:59:00 17:15:00 Event Lisa Miranda 17529.1.1 ity of 3.412.2.7 [place] .3.393860 MD Chatterjee8 [facility] 2021-07-13 2021-07-13 Anesthesia Joan Hickman 1.2.840.1 [id number] Univers 13:59:00 17:15:00 Event Lisa Miranda 60880.1.1 ity of 3.412.2.7 [place] .3.754636 MD Chatterjee8 [facility] 2021-07-13 2021-07-13 Surgery Salazar, 1.2.840.1 [id number] Univers 13:20:00 17:00:00 Mara 71180.1.1 ity of 3.412.2.7 [place] .3.092400 MD Chatterjee8 [facility] 2021-07-13 2021-07-13 Surgery Salazar, 1.2.840.1 [id number] Univers 13:20:00 17:00:00 Mara 74354.1.1 ity of 3.412.2.7 [place] .3.111945 MD Chatterjee8 [facility] 2021-07-13 2021-07-13 Ancillary EL Popat, 1.2.840.1 [id number] Univers 13:10:00 13:20:00 Procedure Keyradha 35051.1.1 it y of 3.412.2.7 [place] .3.424026 MD Chatterjee8 [facility] 2021-07-13 2021-07-13 Ancillary Popat, 1.2.840.1 [id number] Univers 13:10:00 13:20:00 Procedure Keyuri 24793.1.1 it y of 3.412.2.7 [place] .3.527449 MD Chatterjee8 [facility] 2021-07-13 2021-07-13 Outpatient TESSIE SALAZAR, NONA [facility] [id number] 12:43:11 12:50:01 MARA zamora 2021-07-13 2021-07-13 Orders Catracho, 1.2.840.1 [id number] Univers 00:00:00 00:00:00 Only Tracey 03510.1.1 ity of 3.412.2.7 [place] .3.193397 MD Chatterjee8 [facility] 2021-07-13 2021-07-13 Travel 1.2.840.1 1.2.035.455 5071 [id number] Univers 00:00:00 00:00:00 97890.1.1 350.1.13.41 ity of 3.412.2.7 2.2.7.3.698 [place] .3.873604 08Soumya.8 MD Chatterjee8 [facility] 2021-07-13 2021-07-13 Orders Sangeetaarash, 1.2.840.1 [id number] Univers 00:00:00 00:00:00 Only Tracey 31989.1.1 ity of 3.412.2.7 [place] .3.536659 MD Chatterjee8 [facility] 2021-07-13 2021-07-13 Travel 1.2.840.1 1.2.605.304 4162 [id number] Univers 00:00:00 00:00:00 14455.1.1 350.1.13.41 ity of 3.412.2.7 2.2.7.3.698 [place] .3.230342 084.8 MD Chatterjee8 [facility] 2021-07-12 2021-07-12 Sasha Downey 1.2.840.1 [id number] Univers 16:30:00 17:00:00 Appointmen Nahun 12559.1.1 i ty of ts 3.412.2.7 [place] .3.752763 .8 [facility] 2021-07-12 2021-07-12 Sasha Rivera 1.2.840.1 [id number] Univers 16:30:00 17:00:00 Appointmen Nahun 08107.1.1 i ty of ts 3.412.2.7 [place] .3.048509 MD Chatterjee8 [facility] 2021-07-12 2021-07-12 Clinical Svitlana Henderson 1.2.840.1 [id number] [facility] 13:00:00 13:00:00 Support Ashley Johnson 53849.1.1 ity of 3.412.2.7 [place] .3.919100 MD Chatterjee8 [facility] 2021-07-12 2021-07-12 Clinical Svitlana [place] 1.2.840.1 [id number] [facility] 13:00:00 13:00:00 Support Ashley Johnson 72725.1.1 ity of 3.412.2.7 [place] .3.747630 MD Chatterjee8 [facility] 2021-07-12 2021-07-12 Ancillary TESSIE [place] 1.2.840.1 [id number] [id number] [facility] 09:30:00 10:00:00 Procedure vSitlana 44985.1.1 it y of 3.412.2.7 [place] .3.380144 MD Chatterjee8 [facility] 2021-07-12 2021-07-12 Ancillary Felix 1.2.840.1 [id number] 1087 [id number] [facility] 09:30:00 10:00:00 Procedure Svitlana 44464.1.1 it y of 3.412.2.7 [place] .3.498616 MD Bliss [facility] 2021-07-12 2021-07-12 Ancillary TESSIE [place], 1.2.840.1 [id number] 1087 [id number] [facility] 08:30:00 09:00:00 Procedure Svitlana 59575.1.1 it y of 3.412.2.7 [place] .3.360089 MD Chatterjee8 [facility] 2021-07-12 2021-07-12 Ancillary Felix, 1.2.840.1 [id number] 1087 [id number] [facility] 08:30:00 09:00:00 Procedure Svitlana 77800.1.1 it y of 3.412.2.7 [place] .3.575057 MD Bliss [facility] 2021-07-12 2021-07-12 Travel 1.2.840.1 1.2.494.349 1259 [id number] [facility] 00:00:00 00:00:00 07420.1.1 350.1.13.41 ity of 3.412.2.7 [place].3.698 [place] .3.36[place] 084.8 MD Bliss [facility] 2021-07-12 2021-07-12 Travel 1.2.840.1 1.2.023.029 5429 [id number] [facility] 00:00:00 00:00:00 99104.1.1 350.1.13.41 it[place] of 3.412.2.7 [place]7.3.698 [place] .3.213022 084.8 MD [facility] 2021-07-07 2021-07-07 Office TESSIE Salazar, 1.2.840.1 [id number] [facility] 10:00:00 11:06:04 Visit Mara 35465.1.1 ity of 3.412.2.7 [place] .3.110544 MD [facility] 2021-07-07 2021-07-07 Office Maryann, 1.2.840.1 [id number] [facility] 10:00:00 11:06:04 Visit Mara 32862.1.1 ity of 3.412.2.7 [place] .3.405761 MD Bliss [facility] 2021-07-07 2021-07-07 Travel 1.2.840.1 1.2.802.062 6736 [id number] [facility] 00:00:00 00:00:00 67130.1.1 350.1.13.41 ity of 3.412.2.7 2.[place]7.3.698 [place] .3.463348 084.8 MD Bliss [facility] 2021-07-07 2021-07-07 Travel 1.2.840.1 1.2.783.958 0863 [id number] [facility] 00:00:00 00:00:00 18027.1.1 350.1.13.41 ity of 3.412.2.7 2.[place].7.3.698 [place] .3.985525 08Soumya.Lisseth [facility] 2021-07-05 2021-07-05 Venu Maynard 1.2.840.1 [id number] [facility] 00:00:00 00:00:00 Fiona Pearson 99264.1.1 ity of n 3.412.2.7 [place] .3.774982 MD Bliss [facility] 2021-07-05 2021-07-05 Venu Maynard 1.2.840.1 [id number] Univers 00:00:00 00:00:00 Fiona Pearson 34168.1.1 ity of n 3.412.2.7 [place] .3.216352 MD Bliss [facility] 2021-07-01 2021-07-01 Uriel Jean 1.2.840.1 [id number] Univers 23:59:59 23:59:59 Event Tracey Escobar 61910.1.1 ity of 3.412.2.7 [place] .3.669464 MD .8 [facility] 2021-07-01 2021-07-01 Uriel Jean 1.2.840.1 [id number] Univers 23:59:59 23:59:59 Event Tracey Escobar 18741.1.1 ity of 3.412.2.7 [place] .3.261999 MD Chatterjee8 [facility] 2021-07-01 2021-07-01 Sasha Downey 1.2.840.1 [id number] Univers 16:00:00 16:00:00 Appointjeff Nahun 30974.1.1 i ty of ts 3.412.2.7 [place] .3.135934 MD Chatterjee8 [facility] 2021-07-01 2021-07-01 Sasha Rivera 1.2.840.1 [id number] Univers 16:00:00 16:00:00 Appointjeff Garnica 15054.1.1 i ty of ts 3.412.2.7 [place] .3.331543 MD Bliss [facility] 2021-07-01 2021-07-01 Consult Hortensia Nation 1.2.840.1 [id number] Univers 14:30:00 15:15:00 Carlyle Scott 96588.1.1 ity of 3.412.2.7 [place] .3.173923 MD Bliss [facility] 2021-07-01 2021-07-01 Consult Hortensia Chavez 1.2.840.1 [id number] Univers 14:30:00 15:15:00 Carlyle Scott 12505.1.1 ity of 3.412.2.7 [place] .3.868123 MD Bliss [facility] 2021-07-01 2021-07-01 Travel 1.2.840.1 1.2.253.463 3805 [id number] Univers 00:00:00 00:00:00 00309.1.1 350.1.13.41 ity of 3.412.2.7 [place].3.698 [place] .3.762706 084.8 .8 [facility] 2021-07-01 2021-07-01 Travel 1.2.840.1 1.2.399.628 7992 [id number] Univers 00:00:00 00:00:00 26960.1.1 350.1.13.41 ity of 3.412.2.7 2.[place].7.3.698 [place] .3.156542 084.8 MD Chatterjee8 [facility] 2021-06-29 2021-06-29 Ancillary Sasha Wise 1.2.840.1 [id number] 1 [id number] Univers 22:10:00 22:15:00 Procedure Xinying 63877.1.1 it y of 3.412.2.7 [place] .3.478034 MD Chatterjee8 [facility] 2021-06-29 2021-06-29 Ancillary Sasha Brown 1.2.840.1 [id number] 1 [id number] Univers 22:10:00 22:15:00 Procedure Xinying 61725.1.1 it y of 3.412.2.7 [place] .3.679426 MD Chattejree8 [facility] 2021-06-29 2021-06-29 Ancillary Sasha Wise 1.2.840.1 [id number] 1 [id number] Univers 22:05:00 22:10:00 Procedure Xinying 18454.1.1 it y of 3.412.2.7 [place] .3.692704 MD Chatterjee8 [facility] 2021-06-29 2021-06-29 Ancillary Sasha Brown 1.2.840.1 [id number] 1 [id number] Univers 22:05:00 22:10:00 Procedure Xinying 44069.1.1 it y of 3.412.2.7 [place] .3.078277 MD Chatterjee8 [facility] 2021-06-29 2021-06-29 Ancillary Sasha Wise 1.2.840.1 [id number] 1 [id number] Univers 22:00:00 22:05:00 Procedure Xinying 59506.1.1 it y of 3.412.2.7 [place] .3.521946 MD Chatterjee8 [facility] 2021-06-29 2021-06-29 Ancillary Sasha Brown 1.2.840.1 [id number] 1 [id number] Univers 22:00:00 22:05:00 Procedure Nahun 31254.1.1 it y of 3.412.2.7 [place] .3.636382 .8 [facility] 2021-06-29 2021-06-29 Ancillary Sasha Wise 1.2.840.1 [id number] 1 [id number] Univers 21:55:00 22:00:00 Procedure Nahun 17705.1.1 it y of 3.412.2.7 [place] .3.885280 MD Bliss [facility] 2021-06-29 2021-06-29 Ancillary Sasha Brown 1.2.840.1 [id number] 1 [id number] Univers 21:55:00 22:00:00 Procedure Nahun 56106.1.1 it y of 3.412.2.7 [place] .3.320864 MD Bliss [facility] 2021-06-29 2021-06-29 Ancillary Sasha Wise 1.2.840.1 [id number] 1 [id number] Univers 21:50:00 21:55:00 Procedure Nahun 23380.1.1 it y of 3.412.2.7 [place] .3.375318 MD Bliss [facility] 2021-06-29 2021-06-29 Ancillary Sasha Brown 1.2.840.1 [id number] 1 [id number] Univers 21:50:00 21:55:00 Procedure Nahun 23837.1.1 it y of 3.412.2.7 [place] .3.978754 MD Chatterjee8 [facility] 2021-06-29 2021-06-29 Alla James2.840.1 [id number] Univers 00:00:00 00:00:00 Only Svitlana 23898.1.1 ity of 3.412.2.7 [place] .3.257015 MD Bliss [facility] 2021-06-29 2021-06-29 Prep for Felix, 1.2.840.1 [id number] Univers 00:00:00 00:00:00 Surgery Svitlana 30874.1.1 ity of 3.412.2.7 [place] .3.428396 MD Chatterjee8 [facility] 2021-06-29 2021-06-29 Orders Felix, 1.2.840.1 [id number] Univers 00:00:00 00:00:00 Only Svitlana 43186.1.1 ity of 3.412.2.7 [place] .3.489753 MD Chatterjee8 [facility] 2021-06-29 2021-06-29 Prep for Felix, 1.2.840.1 [id number] Univers 00:00:00 00:00:00 Surgery Svitlana 07299.1.1 ity of 3.412.2.7 [place] .3.978824 MD Bliss [facility] 2021-06-28 2021-06-28 [facility], 1.2.840.1 [id number] Univers 16:04:56 23:59:00 Encounter Hortensia 06563.1.1 it y of 3.412.2.7 [place] .3.194937 MD Bliss [facility] 2021-06-28 2021-06-[address] [facility], 1.2.840.1 [id number] 10 [id number] Univers 16:04:56 23:59:00 Encounter Hortensia 65025.1.1 it y of 3.412.2.7 [place] .3.304641 MD Chatterjee8 [facility] 2021-06-28 2021-06-28 [facility], 1.2.840.1 [id number] 1 [id number] Univers 16:15:00 16:30:00 Procedure Hortensia 82522.1.1 it y of 3.412.2.7 [place] .3.844413 [facility] 2021-06-28 Ancillary Prudencio Chavez.2.840.1 [id number] 1 [id number] Univers 16:15:00 16:30:00 Procedure Hortensia 33286.1.1 it y of 3.412.2.7 [place] .3.441054 MD Chatterjee8 [facility] 2021-06-28 2021-06-28 Outpatient TESSIE CHAVEZ, NONA [facility] [id number] 16:05:37 16:27:24 HORTENSIASammie Weller noah amor 2021-06-28 2021-06-28 Office Sasha Wise 1.2.840.1 [id number] Univers 15:30:00 16:00:00 Visit Ann Rodriguez 46518.1.1 ity of 3.412.2.7 [place] .3.924335 MD Chatterjee8 [facility] 2021-06-28 2021-06-28 Office Sasha Brown 1.2.840.1 [id number] Univers 15:30:00 16:00:00 Visit Ann Rodriguez 35511.1.1 ity of 3.412.2.7 [place] .3.970945 MD Chatterjee8 [facility] 2021-06-28 2021-06-28 Office Sasha Wise 1.2.840.1 [id number] Univers 15:00:00 15:30:00 Visit Mack Osorio 36132.1.1 ity of 3.412.2.7 [place] .3.494454 MD Chatterjee8 [facility] 2021-06-28 2021-06-28 Office Sasha Brown 1.2.840.1 [id number] Univers 15:00:00 15:30:00 Visit Mack Osorio 41157.1.1 ity of 3.412.2.7 [place] .3.005592 MD Chatterjee8 [facility] 2021-06-28 2021-06-28 Office Sasha Wise 1.2.840.1 [id number] Univers 14:30:00 15:00:00 Visit Mara Salazar 96271.1.1 ity of 3.412.2.7 [place] .3.668182 MD Chatterjee8 [facility] 2021-06-28 2021-06-28 Office Sasha Brown 1.2.840.1 77809 5345 [id number] Univers 14:30:00 15:00:00 Visit Mara Salazar 34219.1.1 ity of 3.412.2.7 [place] .3.220353 MD Bliss [facility] 2021-06-28 2021-06-28 Office Sasha Wise 1.2.840.1 [id number] Univers 12:00:00 12:30:00 Visit ChavezHortensia crawford 51996.1.1 ity of 3.412.2.7 [place] .3.331602 MD Bliss [facility] 2021-06-28 2021-06-28 Office Sasha Brown 1.2.840.1 [id number] Univers 12:00:00 12:30:00 Visit ChavezHortensia crawford 98567.1.1 ity of 3.412.2.7 [place] .3.013933 MD Bliss [facility] 2021-06-28 2021-06-28 Travel 1.2.840.1 1.2.537.486 4660 [id number] Univers 00:00:00 00:00:00 55704.1.1 350.1.13.41 ity of 3.412.2.7 [place]7.3.698 [place].925846 084.8 MD Bliss [facility] 2021-06-28 2021-06-28 Travel 1.2.840.1 1.2.997.332 2751 [id number] Univers 00:00:00 00:00:00 09513.1.1 350.1.13.41 ity of 3.412.2.7 [place].7.3.698 [place] .3.110235 084.8 MD Bliss [facility] 2021-06-25 2021-06-25 Orders Salazar, 1.2.840.1 [id number] Univers 00:00:00 00:00:00 Only Mara 20597.1.1 ity of 3.412.2.7 [place] .3.508455 MD Chatterjee8 [facility] 2021-06-25 2021-06-25 Orders Salazar, 1.2.840.1 [id number] Univers 00:00:00 00:00:00 Only Mara 96681.1.1 ity of 3.412.2.7 [place] .3.748866 .8 [facility] 2021-06-23 2021-06-23 [facility], 1.2.840.1 [id number] Univers 08:12:15 23:59:00 Encounter Hortensia 13740.1.1 it y of 3.412.2.7 [place] .3.881779 .8 [facility] 2021-06-23 2021-06-[address] [facility], 1.2.840.1 [id number] 10 [id number] Univers 08:12:15 23:59:00 Encounter Hortensia 96430.1.1 it y of 3.412.2.7 [place] .3.352201 .8 [facility] 2021-06-23 2021-06-23 Ancillary Sasha Wise 1.2.840.1 [id number] 1 [id number] Univers 20:10:00 20:15:00 Procedure Xinying 12432.1.1 it y of 3.412.2.7 [place] .3.125108 .8 [facility] 2021-06-23 2021-06-23 Ancillary Sasha Brown 1.2.840.1 [id number] 1 [id number] Univers 20:10:00 20:15:00 Procedure Xinying 58384.1.1 it y of 3.412.2.7 [place] .3.601419 MD Chatterjee8 [facility] 2021-06-23 2021-06-23 Ancillary Sasha Wise 1.2.840.1 [id number] 1 [id number] Univers 20:05:00 20:10:00 Procedure Xinying 37094.1.1 it y of 3.412.2.7 [place] .3.709547 MD Bliss [facility] 2021-06-23 2021-06-23 Ancillary Sasha Brown 1.2.840.1 [id number] 1 [id number] Univers 20:05:00 20:10:00 Procedure Xinying 65842.1.1 it y of 3.412.2.7 [place] .3.938562 MD Chatterjee8 [facility] 2021-06-23 2021-06-23 Ancillary Sasha Wise 1.2.840.1 [id number] 1 [id number] Univers 20:00:00 20:05:00 Procedure Xinying 39591.1.1 it y of 3.412.2.7 [place] .3.512868 MD Bliss [facility] 2021-06-23 2021-06-23 Ancillary Sasha Brown 1.2.840.1 [id number] 1 [id number] Univers 20:00:00 20:05:00 Procedure Xinying 09891.1.1 it y of 3.412.2.7 [place] .3.799110 MD Chatterjee8 [facility] 2021-06-23 2021-06-23 [facility], 1.2.840.1 [id number] 10 [id number] Univers 07:11:57 08:11:00 Encounter Hortensia 64355.1.1 it y of 3.412.2.7 [place] .3.371149 MD Chatterjee8 [facility] 2021-06-23 2021-06-[address] [facility], 1.2.840.1 [id number] 10 [id number] Univers 07:11:57 08:11:00 Encounter Hortensia 12376.1.1 it y of 3.412.2.7 [place] .3.990248 MD Chatterjee8 [facility] 2021-06-23 2021-06-23 NPR Sasha Wise 1.2.840.1 [id number] Univers 07:00:00 07:00:00 Xinying 90861.1.1 ity of 3.412.2.7 [place] .3.819736 MD Bliss [facility] 2021-06-23 2021-06-23 MEHNAZ Sasha Brown 1.2.840.1 [id number] Univers 07:00:00 07:00:00 Xinying 76294.1.1 ity of 3.412.2.7 [place] .3.873782 MD Bliss [facility] 2021-06-23 2021-06-23 Travel 1.2.840.1 1.2.316.743 7190 [id number] Univers 00:00:00 00:00:00 80977.1.1 350.1.13.41 ity of 3.412.2.7 2.2.7.3.698 [place] .3.569722 084.8 MD Bliss [facility] 2021-06-23 2021-06-23 Travel 1.2.840.1 1.2.159.181 1215 [id number] Univers 00:00:00 00:00:00 79844.1.1 350.1.13.41 ity of 3.412.2.7 2.2.7.3.698 [place] .3.366734 084.8 MD Bliss [facility] 2021-06-17 2021-06-17 Orders Jose Miguel, 1.2.840.1 [id number] Univers 00:00:00 00:00:00 Only Hortensia 79850.1.1 ity of 3.412.2.7 [place] .3.989112 MD Bliss [facility] 2021-06-17 2021-06-17 Orders Jose Miguel, 1.2.840.1 [id number] Univers 00:00:00 00:00:00 Only Hortensia 43502.1.1 ity of 3.412.2.7 [place] .3.930059 MD Bliss [facility] 2021-06-16 2021-06-16 Travel 1.2.840.1 1.2.077.273 9910 [id number] Univers 00:00:00 00:00:00 81190.1.1 350.1.13.41 ity of 3.412.2.7 2.2.7.3.698 [place] .3.426903 084.8 .8 [facility] 2021-06-16 2021-06-16 Travel 1.2.840.1 1.2.980.268 3833 [id number] Univers 00:00:00 00:00:00 98813.1.1 350.1.13.41 ity of 3.412.2.7 2.2.7.3.698 [place] .3.881073 084.8 .8 [facility] 2020-08-20 2020-08-20 Outpatient ERIK [facility] [id number] [place] 00:00:00 00:00:00 LAMONTE 737 Nm thodi 2020-08-01 2020-08-01 Outpatient [facility] [id number] Univers 12:30:00 12:30:00 ity of [facility] 2020-07-30 2020-07-30 Outpatient [facility] [id number] [place] 00:00:00 00:00:[address] 2020-05-06 2020-05-06 [facility] 1.2.018.979 [id number] [id number] Univers 06:21:00 08:45:00 Encounter Leobardo Polanco 350.1.13.10 [place] [id number] [facility] Center [address] 2020-05-06 2020-05-06 Anesthesia Nabila Corrales [facility] 1.2.840 .114 [id number] Univers 07:46:00 08:19:00 Apolinar Merino 350.1.13.10 [place] [id number] [facility] Center [address] 2020-05-05 2020-05-05 Laboratory Only, Adc Test [facility] 1.2.840. 114 [id number] Univers 09:27:44 09:42:44 Only Leobardo Shahid 350.1.13.1 0 ity of [place] 4.2.7.2.686 [facility] [id number] [address] 2020-05-05 2020-05-05 [facility] [id number] N-20 Univers 09:30:00 09:30:00 LEOBARDO [id number] [place] [facility] 2020-05-05 2020-05-05 [facility] [id number] [facility] 09:30:00 09:30:00 [facility] 2020-05-01 2020-05-01 Forepart Rasper Sebastián, Adc Lab Main [facility] 1.2.8 40.114 [id number] [facility] 10:56:48 11:11:48 Visit Leobardo Shahid 350.1.13.1 0 ity of [place] 4.2.7.2.686 [facility] [id number] Nm dical [address] 2020-05-01 2020-05-01 Outpatient [facility] [id number] [facility] 10:30:00 10:30:00 [facility] Results Test Description Test Time Test Comments Results Result Comments Source Vitamin D 25OH 2022-03-03 15:42:19 Test Item Value Reference Range Interpretation Comme nts Vitamin D 25 OH (test code = 30 ng/mL 30-100 Reference Range: Deficiency: <10 42177-8) ng/mLInsufficie ncy: 10-29 ng/mLSufficienc y: 30-100 ng/mLPotential toxicity: >100 ng/mL [facility] QuinnLipid [id number] 15:37:39 Test Item Value Reference Range Interpretation Comments Chol (test code = 168 mg/dL See_Comment ATP III Cl assification 2093-3) of Total Choles terol Primary Target of Therapy (in mg/dL):<200 Bbczwuwdg137-74 9 Borderline high >=240 High Testing Pe rformed at [facility], [address], [address], [place] [address] [Automated mess age] The system Wibiya generated this result transmitted ref erence range: <=199. T he reference range was not used to int erpret this result as normal/abnormal . Trig (test code = 173 mg/dL See_Comment H ATP III Cl assification 2571-8) of Serum Trigly cerides Primary Target of Therapy (in mg/dL):<150 Tbykcg116-021 Borderline high 200-499 High>=500 Very high Non-fasting triglycerides > 200 mg/dL may be fo llowed up with a fasti ng Lipid Panel. Calculated LDL- C may be falsely decr eased when non-fastin g triglycerides > 200 mg/dL. Testing Performed at [facility], [address], [address], [facility] [[email or web address] [address] [Automate d message] The sy stem which generated this result transmit alex reference range : <=149. The refe rence range was not u sed to interpret this result as normal/abnor mal. HDL (test code = 35 mg/dL See_Comment L Testing Per formed at 2084-9) [facility], [address], [address], [place] [address] [Automated mess age] The system Wibiya generated this result transmitted ref erence range: >=40. Th e reference range was not used to int erpret this result as normal/abnormal . LDL (test code = 98 mg/dL See_Comment ATP III Cla ssification 83722-4) of LDL Choleste rol Primary Target of Therapy (in mg/dL):<100 Orhnlyy927-349 Near optimal/above onuobro003-051 Borderline high 160-189 High>=190 Very high Testing Perform ed at [facility] Lab [facility], [address], [address], [place] [address] [Automated mess age] The system Wibiya generated this result transmitted ref erence range: <=100. T he reference range was not used to int erpret this result as normal/abnormal . VLDL (test code = 35 mg/[place] [address]-0) [facility], [address], [place] [address] Lab Interpretation Abnormal (test code = 03229-9) [facility] [place] [facility]2022-[facility]-01 15:35:49 Test Item Value Reference Range Interpretation Comments TSH (test code = 2.27 See_Comment Note: Luis Carlos Escobar ethodology and 13552-9) Reference Range change effective 2017 at 1400 Testing Perform ed at [facility], [address], [place] [address] [Automated mess age] The system which ge nerated this result transmit alex reference range : 0.27 - 4.20 mcunit/mL. The reference range was not used to interpr et this result as adonis l/abnormal. [facility] [place] [facility] Resources[facility]ro[facility] [id number] 15:20:07 Test Item Value Reference Range Interpretation Comments Sodium Lvl (test code = 138 See_Comment Test ing Performed at [facility] 2951-2) Lab [facility], [address], [place] [address] [Automated mess age] The system which ge nerated this result tra nsmitted reference range : 136 - 145 mEq/L. The reference range was not u sed to interpret this result as normal/abnormal . Potassium Lvl (test 4.2 See_Comment Testing Performed at [facility] code = 2823-3) Lab Ambulator y Care [facility], [address], [place] [address] [Automated mess age] The system which ge nerated this result tra nsmitted reference range : 3.5 - 5.1 mEq/L. The reference range was not u sed to interpret this result as normal/abnormal . Chloride (test code = 101 See_Comment Testin g Performed at [facility] 2074-0) Lab [facility], [address], [place] [address] [Automated mess age] The system which ge nerated this result tra nsmitted reference range : 98 - 107 mEq/L. The refe rence range was not u sed to interpret this result as normal/abnormal . CO2 (test code = 28 See_Comment Testing Per formed at [facility] 2028-03) Lab [facility], [address], [place] [address] [Automated mess age] The system which ge nerated this result tra nsmitted reference range : 22 - 29 mEq/L. The refe rence range was not u sed to interpret this result as normal/abnormal . Anion Gap (test code = 9 See_Comment Testi ng Performed at [facility] 90229-9) Lab [facility], [address], [place] [address] [Automated mess age] The system which ge nerated this result tra nsmitted reference range : 4 - 14 mEq/L. The refe rence range was not u sed to interpret this result as normal/abnormal . [facility] QuinnFractionated [id number] 15:20:06 Test Item Value Reference Range Interpretation Comments Bili Total (test code 1.3 mg/dL See_Comment H Indocy anine Green = 1974-) (ICG) may cause falsely elevate d bilirubin resul ts. Total and direc t bilirubin must not be measured from s amples containing indo cyanine green. False el evation of total biliru bin can be seen in rashad ents with IgG concentrations above 28 g/L.Testing Performed at [facility], [address], [place] [address] [Automate d message] The sy stem which generated this result transmit alex reference range : <=1.2. The refe rence range was not u sed to interpret this result as normal/abnor mal. Bili Direct (test code 0.2 mg/dL See_Comment Indoc yanine Green = 1967-) (ICG) may cause falsely elevate d bilirubin resul ts. Total and direc t bilirubin must not be measured from s amples containing indo cyanine green. Testing Performed at [facility], [address], [place] [address] [Automate d message] The sy stem which generated this result transmit alex reference range : <=0.3. The refe rence range was not u sed to interpret this result as normal/abnor mal. Bili Indirect (test 1.1 mg/dL 0.0-0.9 H Testing Performed at code = 1970-) [facility] Lab Ambul atory Care [facility], [address], [place] [address] Lab Interpretation Abnormal (test code = 98784-7) [facility] Cancer QuinnGlomerular Filtration Rate 2022-03-03 15:20:05 Test Item Value Reference Range Interpretation Comments eGFR-AA (test code = 48 See_Comment L Normal eGFR >= 60 86046-0) mL/min/1.73 m2 Note: The eGFR is tarah culated using the CKD-E PI equation. The e GFR declines with a ge. eGFR <60 mL/min /1.73 m2 is considere d as "decreased". Th is equation should only be used for pat ients 18 and older. According to th e National Kidney [employer]'s Ki dney Disease Outcome Quality Initiat annel (KDOQI) classif ication and 2011 Kidney Disease Improvi ng Global Outcomes (KDIGO) Clinica l Practice Guidel ine, the stage of CK D should be categ orized based on estima alex GFR. Stage Desc ription GFR mL/min/1.73 m21 Normal or high GFR >=902 Mildly de creased GFR 60-893a Mil dly to moderately decr eased GFR 45-593b Mod erately to severely dec reased GFR 30-444 Staci rely decreased GFR 1 5-295 Kidney failure <15 Testing Perform ed at [facility] Lab Amb[facility], [address], [address], [place] [address] [Automated mess age] The system Wibiya generated this result transmitted ref erence range: >=60 mL/min/1.73 sq. m. The reference range was not used to int erpret this result as normal/abnormal . eGFR-JOSEPH (test code = 41 See_Comment L Normal eGFR >= 60 97346-5) mL/min/1.73 m2 Note: The eGFR is tarah culated using the CKD-E PI equation. The e GFR declines with a ge. eGFR <60 mL/min /1.73 m2 is considere d as "decreased". Th is equation should only be used for pat ients 18 and older. According to th e National Kidney Foundation's Ki dney Disease Outcome Quality Initiat annel (KDOQI) classif ication and 2011 Kidney Disease Improvi ng Global Outcomes (KDIGO) Clinica l Practice Guidel ine, the stage of CK D should be categ orized based on estima alex GFR. Stage Desc ription GFR mL/min/1.73 m21 Normal or high GFR >=902 Mildly de creased GFR 60-893a Mil dly to moderately decr eased GFR 45-593b Mod erately to severely dec reased GFR 30-444 Staci rely decreased GFR 1 5-295 Kidney failure <15 Testing Perform ed at [facility] Lab Ambulat ory Care [facility], [address], [place] [address] [Automated mess age] The system Wibiya generated this result transmitted ref erence range: >=60 mL/min/1.73 sq. m. The reference range was not used to int erpret this result as normal/abnormal . Lab Interpretation Abnormal (test code = 48932-6) [facility] [place] [facility] [id number] 15:20:04 Test Item Value Reference Range Interpretation Comments Total Protein (test 7.6 g/dL 6.4-8.3 Testing Performed at [facility] code = 2885-2) Lab Ambulator y Care [facility], [address], [address], [place] [address] [facility] ResourcesCal[facility] [id number] 15:20:03 Test Item Value Reference Range Interpretation Comments Calcium Lvl (test 9.8 mg/dL 8.4-10.2 Testing Pe rformed at code = 48153-7) [facility] Lab Ambu latory Care [facility], [address], [place], [place] [address] [facility] ResourcesAlkaline [id number] 15:20:02 Test Item Value Reference Range Interpretation Comments Alk Phos (test code = 54 U/L 40-129 Testin g Performed at [facility] 6768-6) Lab Roller Helper [facility], [address], [place] [address] [facility] ResourcesAlbumin [id number] 15:20:01 Test Item Value Reference Range Interpretation Comments Albumin Lvl (test code 4.5 See_Comment Testi ng Performed at [facility] JOHN'S = 4763) [facility], [address], [address], [place] [address] [Automated mess age] The system which ge nerated this result tra nsmitted reference range : 3.5 - 5.2 gm/dL. The refe rence range was not used to interpret this result as normal/abnormal . [facility] Resources[facility]art[facility] Aminotransferase 2022-03-03 15:20:00 Test Item Value Reference Range Interpretation Comments AST (test code = 28 U/L See_Comment Testing Per formed at [facility] 1920-8) [facility], [facility], [place] [address] [Automated mess age] The system which ge nerated this result transmit alex reference range : <=40. The reference range was not used to interpr et this result as adonis l/abnormal. [facility] ResourcesALT2022-09-01 15:19:59 Test Item Value Reference Range Interpretation Comments ALT (test code = 32 U/L See_Comment Testing Per formed at [facility] 1742-6) [facility], [facility], [place] [address] [Automated mess age] The system which ge nerated this result transmit alex reference range : <=41. The reference range was not used to interpr et this result as adonis l/abnormal. [facility].Serum Fzpbnxqnvh8808-17-32 15:19:57 Test Item Value Reference Range Interpretation Comments Creatinine (test code = 1.65 mg/dL 0.67-1.17 H Test ing Performed 2160-0) at [facility], [facility] [address], [place], [place] [address] Lab Interpretation (test Abnormal code = 94283-3) [facility] ResourcesBUN2022-09-01 15:19:56 Test Item Value Reference Range Interpretation Comments BUN (test code = 17 mg/dL 6-23 Testing Per formed at [facility] 3094-0) [facility], [facility], [place] [address] [facility] ResourcesGlucose [id number] 15:19:55 Test Item Value Reference Range Interpretation Comments Glucose Level (test code 146 mg/dL 70-99 H Eff ective 01/27/16, = 2345-7) the glucose reference inter vals have been updat ed based on [place] an Diabetes Associ ation guidelines (Standards of Medical Care in Diabetes 2016. Diabetes Care 2 016; 39: S13-S22).Fa sting blood glucose:Normal: 70-99 mg/dLImpa ired fasting glucose (increased risk for diabetes or pre-diabetes): 100-125 mg/dLDiabetes mellitus: >/=12 6 mg/dL Random bl ood glucose:Normal: 70-199 mg/dLNot e: Random glucose >100 mg/dL is associ ated with increased risk for diabetes Te sting Performed at [facility], [address] [facility], [address], [place], [place] [address] Lab Interpretation (test Abnormal code = 57019-7) [facility] Cancer [id number] 14:53:10 Test Item Value Reference Range Interpretation Comments Neutrophil % (test code 47.1 % 42.0-66.0 As p art of = 770-8) Differential performed at [facility], [address], [place] [address] Lymphocyte % (test code 36.8 % 24.0-44.0 = 736-9) Monocyte % (test code = 10.0 % 2.0-7.0 H 5905-5) Eosinophil % (test code 3.8 % 1.0-4.0 = 713-8) Basophil % (test code = 1.6 % 0.0-1.0 H 706-2) IGRE % (test code = 0.7 % 0.0-0.4 H IGRE % c ount includes 35408-8) Metamyelocytes, Myelocytes, and Promyelocytes. As part of Differe ntial performed at [facility], [address], [facility] [email or web address] [address] Neutrophil Abs (test 2.11 K/uL 1.70-7.30 code = 751-8) Lymphocyte Abs (test 1.65 K/uL 1.00-4.80 code = 731-0) Monocyte Abs (test code 0.45 K/uL 0.08-0.70 = 742-7) Eosinophil Abs (test 0.17 K/uL 0.04-0.40 code = 711-2) Basophil Abs (test code 0.07 K/uL 0.00-0.10 = 704-7) IG Abs (test code = 0.03 K/uL 0.00-0.04 48371-9) Lab Interpretation Abnormal (test code = 88842-0) [facility].[id number] 14:52:56 Test Item Value Reference Range Interpretation Comments WBC (test code = 4.5 K/uL 4.0-11.0 6690-2) RBC (test code = 4.90 See_Comment [Automated message] The 789-8) system which ge nerated this result tra nsmitted reference range : 4.50 - 6.00 M/uL. The reference range was not u sed to interpret this result as normal/abnormal . Hgb (test code = 14.5 See_Comment As part of CBC or as an 718-7) individual luis osorio testing perform ed at [facility], [address], [address], [place] [address] [Automated mess age] The system which ge nerated this result tra nsmitted reference range : 14.0 - 18.0 gm/dL. The reference range was not u sed to interpret this result as normal/abnormal . Hct (test code = 43.1 % 40.0-54.0 As part of CBC or as an 4544-3) individual luis osorio testing perform ed at [facility], [address], [place] [address] MCV (test code = 88 fL 82-98 787-2) MCH (test code = 29.6 pg 27.0-31.0 785-6) MCHC (test code = 33.6 See_Comment [Automate d message] The 786-4) system which ge nerated this result tra nsmitted reference range : 31.0 - 36.0 gm/dL. The reference range was not u sed to interpret this result as normal/abnormal . RDW-SD (test code = 39.9 fL 35.1-46.3 97111-5) RDW-CV (test code = 12.4 % 12.0-15.5 788-0) Platelet count (test 199 K/uL 140-440 As part of CBC or as an code = 777-3) individual ord erable testing perform ed at [facility], [address], [place] [address] MPV (test code = 10.2 fL 4.0-10.4 69714-5) INRBC (test code = 0.0 % See_Comment The INRBC (instrument 40112-1) NRBC) value ref lects the enumerationof n ucleated red blood cells contained in a 200uL samp leof whole blood analyzed by the instrument. Thi s value maydiffer from the NRBC value reported in a manual differen tial,which is based on a 1 00 cell differential. A s part of CBC testing per formed at [facility] or[facility] Healthdg[address], [place] [address] [Automate d message] The system Wibiya generated this result transmitted ref erence range: <=0.0. T he reference range was not used to interpr et this result as normal/abnormal . [facility] ResourcesOncotypeDX (send out) Material [id number] 16:13:00 Test Item Value Reference Range Interpretation Comments Archived Material Previously diagnosed (test code = 48968) tissues from [id number] were selected for molecular analysis. Results will be reported separately. [facility] ResourcesCytogenetics Specimen Collection -[id number] 15:10:50 Test Item Value Reference Range Interpretation Comments Rena Ap Link (test [id number] Collect ion date/time code = 84270) has been modif ied to: 14:43:00. Previ ous collection date/time: 14:43:00.Nadeem johnson from [id number] [NA] on 08/02/21 9:1 0:48 [employer] by Kia Deluca. Cytogenetics (Received) Yes Jonas ection date/time (test code = 8304) has been modified to: 14:43:00. Previ ous collection date/time: 14:43:00.Correc alex from Yes [NA] o n 08/02/21 9:10:4 8 [employer] by Khalif Deluca. [facility] Cancer [facility] Surgical Interpretation 2021-07-30 16:17:50 Test Item Value Reference Range Interpretation Comments Addendum 1 (test v6tbyHCrONQizSL7LfCvKMCrz code = 37) 2xsc6YyaCZfpUZkRDjjnUMbom Zsbp66oPD4zP04ZW1lLIIwKnP 5KJYbyfU1Pef7QTJsOQXgyGJj X203k4lpg4zcnzQnjPW8rFbtA GFfjovyTsL8XTfiFJSroqllXA n3ZCzcMODryDP4HERuvLXrN5N wLRAaIS0mvye3LPL6NNtjRMPg BnD8PZCwbSEiSBLhvCwdLLbff 892QCY8OjOsSLIrohHdfTljzA 9gWiMsDGXCtYWfuD1kljG0ETo wGuNkCoGlGVP6AMBclnjwtTW7 TZygvA8kRQzlocweBFAceZsgX WqiyaNrMB0lkJ6rzVdwsE8ryR VtaWNhbCBzdGFpbmluZyBpcyB sMQXwo9WiBAKdhP5iu1LrYSvq QkKqnsIwAHKmdOZqy8BeaLB6c XZlIHBhcmFmZmluLWVtYmVkZG RbRYWqB1Hgm80nBOUjftftcQA 0NWdkdL4uIRijF8FpI5ccHQ5q dUtfZGsuDNWxFERcmE1yOG3rH PZhJRNmc1ZmeRmiuwveVLDcA2 CuN1eaYV8iUVvkY64ck8xiEjV TvvKvm0k7FPKoqDB6VWyaA3Gq A5rbq07kZBShkqJRxQ5vzrctP ZB4UGIaqeguFOfVIcRzxFChLU erUNs0ZWfazkY6ClbmZKJPFOJ sHFXnw1TpbZK6UAhvHW3dD5O3 ePKmK5MyF8OeSTZeuZk0b7Jeg AnqAGOfUtUwSDIBZjJLS50zSX mvNCogHeojvGIzBIRjHoB8NSE kUAFRcNMsa6PqbBR9ZPNvu247 su9xmcXaiuJtfWAdw4AawIMbq yA5lGCsl0fiMPVfJKCvmdxhzV GrbpvdFPHLF3cpDGNeaJMewCj zcslfcUTwRMhezuIvZ59qiWTq PPVdrTFxMLPGCniuF5TALPoju 6vwflRnNXJatGsrDEF7rUadTK LpWLY2YJe4KQSgKCJoqKARSAM QIrbfVYNrnQGVhgEzZs4doFSw hB0gBAa0MzRuOJRsQ3mkKKHkv 1L6RRSZqCTymp0iyOubvwwhaU AaVMReg8d1hNNyLUNvu2AdPEX tGXL2sW2vBOU3rXRbTWWmnmO4 mVZqzyLcsJlngURxJJ1uoaBdP SZquMVlnxebGuI5uQK0YQyrYA NvbXBsZXRlLCBpbnRlbnNlLCB goiSpeF8fDxXfQBGqLfH9kQ8k ksGrVXbnnzUfB9YghhIxSretA lx+OzAsYZVrvkOqA6QqWVCbGF BdCSMgUsfmEUCxCLUprAvul4B ul4m5tGGrseMezNXccqqeJlbi f7FftEVqAfHezoWxi3EjwR2em mcgdGhhdCBpcyBpbmNvbXBsZX MeWSTyMZWdutTlCSbwbD8iQDK jzZzuaPZrM1PokKgftRLgIC9g ZZfvJWv5VQniODA/IKWmZO1dL ND9xO4zGMArbHmdZYkMR43cBN AwKSBvciBpbmNvbXBsZXRlIG1 imWJqCV3qGWP4ALpioR1xIUPy VCUvmTKqSwOwddQtWvJyHXo2K HBlcmNlcHRpYmxlIGFuZCBpbi A+RDPlDZ2rCLR7hZ1dBTRqtNu lIZgXS26pLADgQpiuOW8JlSSu py2sRPbeM7VhSQXuIKWrMVHee 6AqFLkjyMedv2IbwrB2vjLea6 PucpQ1RQYdj60njJR9MHFaBQ2 icmFuZSBzdGFpbmluZyBvYnNl cnZlZCBpbiA+RIBnEZOnYrQ1h R2yxpEyCOgeibUearUzdPMcdD 1mZXJlbnRpYWwgbWVtYnJhbmU yq2AflI9barmrlSkusCOntcGg qzNkskFhAGC0zKRbtePylPx5J KWsHzSvJHUoFtV6aC4jdlZxVM ncdjDnK7MbdqRrKdrhMoynPYQ gUmVmZXJlbmNlIFdvbGZmIGV0 YAWfPjESOJOmtP8qR81ve2lnR hP6EnYhTB8zEuuiVgXzDSmiOC NsoKbbCWhasKzzIgz8OOXyeNR hV0uiRnukfKLhAPmpMYi7WFqt wsN3ProoIMPIkQ34HgKJJAR3d HEqXrHzIlFDg2aqvT4ykFZbum CmvUXjAGPpYPxkKCA2LMSgfiJ adlNbM9SfvI6qxaf7JIU9BTbx YXJcbGkyODhcZmkyODhcbGluM jh8WQuwFS64sVOlJWmyJ9aidx Z4XR6QLbExJCBWI88xGLCknwP Rr2oyBN4nxWHakiQpYGU3WCQE n3GekjJ6KSKYw1UjfKk2QQHlE i9qVDScLXhogDZGo1ZzjYp8XJ A+MzUlXHBhclxmaTBcYlxpMCB Ph295dd99HJmmCGAjpUd1MiXr hMmhLHs6OGSrFAcpYdVhNNI5X JYeDYSfhDPbcxO8x4MjXWUxyg MuARQngl3pwpqxWwDxeh3fsu8 wnLoaHR0adQIxAGxsqOg0WFAw YXJrZXJzIGFyZSBmaXhlZCBpb yIbm3AmIImdprMxy4XeOTLowP Fin6DjArHam6WribBzrbAlX5H hWMYopOw3ROann4WdvEtzccD9 YJTml4ScdeqwCkL9OWRiqd1ks SazTSQqoTB8pE5qKUM0D2KmSS EoZSrqaS51toCkl55ifU6qzOU obKFdJC0rBGdzDKmpawFtYmhx YXIgSWYgdGhlIHNwZWNpbWVuI GhhcyBiZWVuIGZpeGVkIGZvci Zvh86rTJYbiBrbjpN7FdGjn9C rpiedBXXqYFbxqKy7ONFOCXMt SCdcjPZml4eob9QcK0rumJctE NeoNRpDUwhzvaDtlSi4QX0kgT C1pKTaawR9cLVteSa6PGTdeVJ gd6KafLKhXMYqoCYjYG7rZ3C1 xANjFTNzuLUoa7SolSLzgYQph GYsNHwhphOud0crk69nuPmsmE GytBLsbI5wepTbY9YjKBXfKXM ovZOoKFClksZdbuPod07hJJQe FNTkp9Nra1Mkb9r0pA31oZUgZ pZuS7EaglwvFUiUEPQ0SRbawM 8aJAVcp9DuaMGlSLIxZUKrJi7 jPNzcHANoWVkcoWd3QKHySZQ2 jBPlz2obsRknBQWqIFZjycyyp PUvLHU3HGNxGPq4tN7jBMalaF JxlNLns12xWTh6NJRoBRBjieO tl4AicYoftxWyFeRgtKBlz7Nx zVQ2AV1oFgRhGREgfrLjVREaV lGzTTU2YUEkIqKSiNNwEnRJpM 00yr2qfZA4h7LbGA2gKQ7diTZ Sx1DkCHGpSOJ2EDVaBtLcKDRy Yug3RcrvEEXqEKPuzRvrZOJzF KIooKCaVWbcymNgq8CjlS3fkG fsyMb1XVDbb0Gaz9UfTIEodQP NRCBBbmRlcnNvbiwgcHJlLWFu PEo4mIazFPikZnc8RPHxh46nv PlyBNUtmFA3CXLiDCTmxA4kXV gaKOBjALQiE9GofGNbytcomwb vxPB8bW9gx7g9PIKvpQ4byD2q wUSkOCIfUAAmTNHdn8Q0btTfS NToWN7mjTCgYCClKUKlqEtrOY RlZCBvbiBkZWNhbGNpZmllZCB 0aXNzdWVzLlx+QPHig4FmsPXm i3nltEtcFLYaIZiqjDZjnDLaw BHkTDugiVpiD0I9mDuqaoGhhA ZfkzM7xKCdaGhzNYvwmN1bBIN uByNuTBhnULQhJVomiTe7rMG2 LC4aHOIeW6JeZ6looWPdFRWaZ YYzmAJkak7feVFaPMsaCHjkiY 4wXGkwICBccGFyfQ== Submitted Clinical c8traYBrCNDay2ukARIiyOYhG History (test code = zEwMzNcZnRuYmpcdWMxIHtccn 65224) LgDWoub4IsQ1ViYeFfRPcxfpK nVJIlNzwewicfYWNvJJQ0tuRk TYYaUXhuESErMFliQd3wsDEgx YglZmFdLBOpe9bazbDVvqpadD x4k3wlOXPyUhN7fLNaNSwmH3g vhvOimEGoNQXtNNi0jG95RLIh xG3beSHeUXnpzaVvQaO6XIcfC TOqDqS7AHZfpFCbJVFeE1pqIM QgKQckATOjXXwlxFJnOLD8vRa kr3L1wBUgrIYkgSbzKiRsRhRz UnAWu6RdTIa5tPgqX8MhZCAfK kI5mGFlFNSkPMuuTCEfCNGpwv A4eS53ZNztccV1yOJro2Dxj56 gu715xB2jvTFfJTM7CQSeDFDw lJRtZLJyQHK4ZPIhqLDuX7usS KNuNF9pknszYXtlHTmoMAPydM D7DJUsqYUiF9JeCYIyQMmoMUM bbgd6PjWgYn0wfDAtjAbvHQaq g4frm6ackMIkTxl0LZIsGeQwD zvuSAjby9Wzm8zxEMZiwf5pOZ O0oPPqoYeur4N4mFBjNIAzcJY yavVyTZVrMqK7KVbsYW5vzz88 TSShTSO9wk2swYIjuDyswsYkh AFmHCurD0JgMCAqt854PIYbX2 LoXYEah1J9goXmCiNqUPWqxFX 0xvN6NNQuHHt0wTGajdT3rhCe bXVyW1ljcI5jODAaEA1htpzpd 1xyCZwjHSigKIKccKJ9xxR4NJ KsmBXpI7BtbI0zNDEnVUmtIZQ pevd4YcDaSz3ucORjhRviGSsd YmtwYWdlXHBnbmNvbnRccGduZ GVjXHBsYWluXHBsYWluXGYwXG GhLfGeuCgqxJiigB3iXjCsBdQ pUMkxKV3yTOLtR0onxMSqMMNf ADOgQ5hqSvVycB0brEawWJuup zIwIEluZmlsdHJhdGluZyBkdW L6ZLRhybQqzg1qNJkzGm5UXF8 bSV14BBEyQGAtpL1dHMgpq8lt tyNrCcDfxvXvb7FcSV9mpGU7M ExlZnQ+IFtDNTAuODIyXVxwbG FpblxmMVxmczIyXGxhbmcxMDM cVJyxP3dxAnLjTAVyvKeyIDms f8IzQMQdIYIrElPcjGSvnK8= Diagnosis (test code k4ingWSfJICigIE4AyOyKHRku = 34) 6wgl2YpsCDifNVzVUqknTZgmv Udby77rLA6eJ26GC1uBTBxMcI 9EATjhlL6Pfo5ETGfWMQjhUPz N276d8lwz9mejuHrmBC2HOHpK YEjR4UrBF1tOLXocEYeY92ffZ TvQUX8PJSvOGBpwGNnPUCfXWC 0GUXqvVDdY1gfHROpQD1vzovd VBraQBiaLIEofXT7MVMffYTcI 2EfJRWoQXesLFHeimf6KuFmBf 9vdGVyeTcyMFxwYXJkXHBsYWl dMGAlDcWpR7EaJTI5WLbiCwYe NrXzSRZ4OGXiZUF9QQC7s574J qboOUYoaAg2FdDkiTgrRfWwVJ VzIYTAAwQGI8tRDZLRZPLMXZj xU2BEX4xKY18BOWBVIhIFYb4W RElBVEUgTlVDTEVBUiBHUkFER WacDs8RGJaSF9hNDWFHMCRAU4 qUO1oUOXvPWUETJGAgYRbsHMH qSE4NQWPGPvGxK3GVM6xZQ67Q JT9TTCWZKiOKKUCrTkSXHPTTV tSRGmQVPNHNPZGMVJ5MKgKPI7 9xRWVyivPHK7JGHIUNWKrKS1G JDJYTNcTXGOEAT1JIRQNFOXVQ BJ2QDQChFYQGFVGpXUMYJfXML p9XOBmCHDWmQrDRBLPJYaODHa KQANwuP20ZZEPvNJ7PRPEEKAU NPSCAUv9lHPxNFCSpM5yREMIK LnBBEDDXW4NWDj5guOIiSE4yR GRlZmluaXRpdmUgbHltcGhhdG koP5Lrc5L6uGUkSZcxpvXyrZ1 cUNseWP24mSRrVEJtSLIbiaFC yTQdhYAbtIAhFMHkjV8zWGBzS DMimqJhEQ6xPZS2hZ8mWczcXA PjM1ivnwVilqOptdgxiXkvIZX sycQ0eE4mudImnaMtNX67Ghkq YXJcbGkwXGxpbjBccGFyXGNmM ECNHwHNHQ66hX5vmVFozI8ooJ Mzk9SxFSSlPVRmCEQ8CQO4hGg sWAdeVouodFA0VqhqERNhmEm4 MjBcbGluNzIwXGNmMCBPbmUgb PqlwZuwbb6bJSizsg3uvYArs5 HkoTXfi4OrrFBmYS8lXT7pxAy nJMPGaQQcr4XeDHXbooAloIGl lgIbkM46qoKhooYlkdbtCS9mP NBvOdHkWYTqx3JznDduFHJkef Yvez0mWI1ytAKyKNsmDFzafR9 mOIBohfnhBjPgQnphT5VjyLoi FNwdnNaasPaysj9pOKMaLthar EJhcXSauQklbALjJEJzc0UtdD pccGFyXGxpNzIwXGxpbjcyMFx eSmLbD16kFQw9uKUtXQ8qQRQe ZZ7lIHL1uL7iFXNhOWYnqsQkR IXjAPorYXliglHrU3c8q6caik K5sS2or4XbjZ4vq7isz6Dwgs6 gPTAnIQEnZ4Nmr4SixQS3DBM0 WYHzPtRpOYHbkR6ajMVoVAMvu rnxrSBayTapCBpqIDRgX3YjEL G8ILClnyNyixHtTJl5iZBiHH1 vZGUgIzMsIGxlZnQgYXhpbGxh QDImjP9lk8w4SEOkmssdxOykV EwuaU56XbNvJ1YsOK4zUKYgwI 3zvEYyx3KtNNJmnsP7gA1xfiF nvdPxWG58SHfgFtRwFtrxpV3n ZWI7zE6yXEHsmWfcDPA0ZBxyE TLpy5obED5iNLY8nSExinFkHR 6vZH8qmHEuoIY1oMVpB2AaG5e ug02xCrpcBXUxuOZlNFokBTJ8 Synoptic Checklist INVASIVE CARCINOMA OF THE (test code = 9864) BREAST: ResectionINVASIVE CARCINOMA OF THE BREAST: COMPLETE EXCISION - All Csitxbsnz9wn Edition - Protocol posted: 08/28/2019 SPECIMEN Procedure: Total mastectomy Specimen Laterality: Left TUMOR Histologic Type: Invasive carcinoma of no special type (ductal) Glandular (Acinar) / Tubular Differentiation: Score 3 Nuclear Pleomorphism: Score 2 Mitotic Rate: Score 1 Overall Grade: Grade 2 (scores of 6 or 7) Tumor Size: Greatest dimension of largest invasive focus (Millimeters): 22 mm Ductal Carcinoma In Situ (DCIS): Present Tumor Extent: Treatment Effect in the Breast: No known presurgical therapy MARGINS Invasive Carcinoma Margins: Uninvolved by invasive carcinoma Distance from Closest Margin (Millimeters): 8 mm Closest Margin(s): Inferior DCIS Margins: Uninvolved by DCIS Distance from Closest Margin (Millimeters): Greater than: 10 mm LYMPH NODES Regional Lymph Nodes: Uninvolved by tumor cells Total Number of Lymph Nodes Examined: 3 Number of Gower Nodes Examined: 3 PATHOLOGIC STAGE CLASSIFICATION (pTNM, AJCC 8th Edition) Primary Tumor (pT): pT2 Regional Lymph Nodes Modifier: (sn): Gower node(s) evaluated. Regional Lymph Nodes (pN): pN0 SPECIAL STUDIES Breast Biomarker Testing Performed on Previous Biopsy: Testing Performed on Gross Description z9hteDXaEGVeeGRKCCktRApfq (test code = pPkERCdaVEsC8JaqodoXBbwAY [id number]) 1lYI5aoIpxxXFyrLDoMB6OZSZ lZmYxXHBhcGVydzEyMjQwXHBh aHBsmGB1XYXaNB5viqbuDFrfB GkdDWWstcC7EQHczNFmW7OpXS OoIH3xgnoyMGA2LVgdjL1lyiJ BPhskNq7dmLMzgGtcQcMcTdEw ZRJiAYTwXKBjyEokKRXfZTw4o N7OQkbdR56bi4I9Vdq6POCsEE DzC1WxNU0yARBfyMTxL51WUjy yDAE4JOZDNhvkLGCkGA8So5qk SUOwtDBrNHG2SRgwuYCcNZQiI BDcKZn0VTUrOIxboRWiSY7sqH phRtjlcWioi7YdyDAvZTomRLS mOJEeAOcjYZNiEC2NUuJxVGBc XzV4LPDsYOh0PZv4JL0OAnMoR ELcEIk7DxKfBBFuYIv7DMclPF 3YYZjvMcFuCIh5SrA9MDYkWJR cXHQgMiBcXGYgQXJpYWwgXFxm cyAxMCBcXGZiIFxcZmwgXFxuY 69apLbcjA8uQptjryJtRMK7TW BhciANClxwbGFpblxlcGljTmV zdERvYzEgDQpcbHRycGFyXGxp bjBccmluMCANClxsdHJjaFxiX GNmMVxmczIwIEJyZWFzdCwgbG ZwkEmteDIbhQZqvyCfh0GiRBQ cTKI9pMWedU3eZSMpee1lsOI4 YHThjH0qHp9yEKR3EXTuAUL2Y FSxBRGMpZKicL9hxpElc63xvW F6qsPeTgAbhaQazmiqffMaGUO hKNJ6KGUiJBAwlOPjESK9UBA9 l952YXFcMJFarJPpTT9lLIH6w gawUiJrUp1sKARoDTC4iMVgkO 4fTGOxZFriMyWjsC8wVXPjVT1 qKGAyOX7aFKlboGE5akHaYKUu owJcDCT2BqTeW10jMP43CWZlw 6ZjtS6dmR3ucOPkmW7mCZTwIO B7ZVjkeMJvVeMwRMwyPGKAahD 3pUNgWW16MVXom4CwBZDkLHX5 VZsgJNKuAyArh24fOeljO7upm 3pklfWryKrleDSnUB1cMAD3gn ouWaQsDL3aRAqySV9tIKatAU2 zSJDfPTwkkObjdRqtWO7dfYTr ZSBhcmVvbGFyIGNvbXBsZXggb VSld3PyqK3vRMWiDEP6OEYuFP K0HMYgUXYovK9dRVCoKXYpkAY qiJJlWQ5zZJCcnL3rPYZrHLvb y1IrmAvdaR6jYH6tbkonUtufX kMgEOFepHmvqGQpo1S8bCIzvw TxwiXwuPOvh2NfaWZwxbEeHXO cDJNld4ttklZ1NIWfe6sgvxDf f8YacZQsAKO0mPIblV3yWOVoJ SNkn06lIVD7yGIhgMVnVUHwxh IvKBIvptE5rSDdq2JoE2Vodq6 vrCeoAGCdxKAjURVbKOimG3Mm pVysEY7oXPFwPKVhlGOjeP8uu iByZXZlYWwgMSBtZXRhbCBiaW 4wp3rmA4qdzD3bPEXtDDDelVB kUTtrPCLqwbksqSi1MXCkM2Tv h34tGAQbqn9jLU4pGPdokBQ0d oLvXVWrudMuCBatrC4kCHGyc7 ruY5QtEWAyZJNkguNjcLLxHTF xpx94zSe1EBTlgYOtTJN0iE8s SWatqQlhDQGfI9JhiM5uYYUdL KZhIXJcpL4cVFHuvgPenaJjOR PhsYhvbTBhCWLnJN1tgJ2xCIV ubKPtqcT4UQO4FfXcSZjfLKQ1 PE3kQEQ3ioseFqVvIqMbqMBqL pUugJHeNjqaE06lPCKJmQAneV Vou3AkgPJnsF9jUOSiCEYhGsx qF85ptH2shEwmKIWxg7Ish0Lv pR1nRYNuf6VnmOZoS3qeWKXgL fMtQ46fiI5tvWebPE0yvDKjQI MsFMGuBWUwPoKsV22feF0vcQn lBZMxh4VqgejftbQaIGSsqR1g OQ5cLJTuCAUagRV1byC7oGBdz 3TuCWGae3RqhNSkL7csTtMnQF fzYD1fttsvnvPkTBTkTSUzNXs sg3WrmMihKiAyQRGfNcO3dWUe iXMgo4WfIV6uREVnRVL7mL0lp rBtp4SjEF7etBQckfQslZHtPM YiQOPfOLzdX5ZnyBOon7slLqJ rSYryKT0emQEgDIIek1PobYTe hCsyOJhaJBzaFB40wJIfGEHxx N8el5qpU1FvIJNwwnRcaAxxXR 2sj7WbeWB3SEThyVLjo3CbQ4A re3VeqWgxJMB6sI5oJmJsSRxf VETwvMYcwrnaMcXjwwPdc0Ism HHcWD1qgMdbOWNmxgL0GP6ybH HcrG26BLMsDaTvFyI9cHirMM6 jUIViwmMxAWWfTZUhMM4lZB3k SUFaZMd2gX7yBOopBUXiMXHjd 6JhY42zC2QvmqVvcrOfE7Dpb0 NseSBpZGVudGlmaWVkLlxsaW5 uXFx5OFPfVUerWHShRUVplUFx YFJihbAweS4yBRNhqaMej8YyO L3kWCVsyPRjmKjdVZNdsMvmZu VnSBMxhm22pCt4UBJprFWto1G cMPEfl7T7NWZgwaPqNRBdKFTx pv26ZSlcy5wcyB5tzBgsrpH0k XNzdWUuXHBhciANClxwYXIgDQ bylEMlGLgHHxJUV7NFHsWJvSD wDFV3fFUjmD8zIRXsavUbZ8Gb yM7nNQJem1PpVZUjEGXtOKPpg 3RlcmlvclxwYXIgDQpcdGFiIF WSS5QZY43fY93INFmcFFGfDHB osMQbKKZrlDVvjPHrBB6yzrih ityyyB56VNRwsL5xJBSnhFTfO KNpiuF3BHEnWHVbcLglFMMnUK dgt5GgRIiddyNnXXL7GVCnHA2 9SiPHWmgzc8tpT6VbFvS3aRLb zsSrwq8kwoZohABhmpFqvCWnZ RhkK5JfqLI6iwHvevIqBS0qSC CsvfRytp2hAyQkXRIvg35svlJ uqL4wp5p0QbSARHjvo5apG7Su EXFchxGtBN1iTACnhaLwma6yF pRiREXgh64traCboR1ni1e2OY qyrWixfU1km8imkBFhNa3oSWs kS9FdU0vsdBGipQatofUxHT4o QSRcmjZgGD64ERGscC23YNN0V JHtkGndWKQ4NSHyyRBiJPrkvm YvEWI6FPEfHG25KQsleTphdJ4 cgDBafP8xPS2pjwjvusxrWMGb IHNsaWNlIDUgYXJlYSBvZiBma XXai4QpLNQtr5H1XVM3gwRqni y6fZ4dRBVqaE14BMU3PDBdvEa lCUG0VM3ypLJjXEQeMGFkVT0i vOB9lRQuJzVMVUsos5kyH0WdT yBuaXBwbGUgYmFzZTsgQTlcdT skGHNqVNk3BfZjYUjnw5qcX3Z dScRoqbZmKQ7hHETpNsPicMqp SEFim3T7ESV7gbEfvcy1yV1nO V7ziBQyRAOxpdHub2vorbOfia 2mEFS7jFWtcP9aTLQhFEbnMzI tpR5qRVtDJGQfRZXtAQMedxRp nV2sfMIuh7BeIpKQMCSfTHRlu MesIWX9ELMbk7DnxunmteKhPC ZyfZ7mihJnyiZwAK41JBOtjqA 1IKTeYGNfWHHqyCHwZPfsp1Dz ONDlo1SrhIBbD2rmYJIetkIbH B28IIVjPYT2jH9yUcPNWESfBI QucAAmMCmoQ0xnw8RrgOJrmyN zniavsjFfDKVrrA8wZRBvJKXn obXwkZ0vqFUxy2Y9QQBkJSKoq MbuCOEyHTq7LuPnIImrNROsuO AwRSaapSDve8NlFPG8uBrvC2K ng3Pec9XtlMntqcKcEL8otlSc wiCxaQCaTMS3UVBiTRzpIGDlz TFbCFhsdJ6ngPDrjZ1lHS4iei xtorCgISkmR4XvlLC8wpI0xV3 kwtbvIYUgTTakj7wxM6KnLHQe JI1lrK4aqkfbfJFuf8Etl1a1p MQdbO5uz7bua8z6RTkcBBPkVX oku6qaH1AgMQeuuK8jcDLbiA5 bIQ1nhhhdumTqOFbeR8DouMK7 dpOwqN0fk3cnj6n1ZVtdKMGyM Koww6zwT3IcJXAmlLDaJONrc2 H6LLCeoOOaGAFpbhZ9CWLpXkP rHLAttHNjQRZhPBBbTLQgb8Il z1nktkS2xRBvVCPfAIXpeOoyb vosOu4mMFaiH7XhB7bjoXJhiL scikYpBFxaZ5HjoFH2dnQ1sA0 xqcrjBSKiLrnym3vxL4UlWQFu rfOcqdBaZF23XECcyaItCCSwK ESkgjUuhI6nFhzgeTL8ZWDaeG HvWI8kWQR2cT4hVmJqKJO0YZA jlYidSPFfLUNytcAnMV9cHYSu oeVtap4tXtNiMMKsg66oqoHat K2pr2s6WIOzdsUsl0KtjXLaNN RhmE4sxMIat4QxMZXxPSVrZSP dmdZecPu2IVvtFJA4LQCrpRte ELGtAePcl6vervVhiJHwyzCvo XAagyDcvIgpUBNuVqgof3djE5 BxWTBfpP88BUWae2U5KCWbmUC hZHJhbnQsIGxhdGVyYWwgbWFy H7ieBENjPGNwTO4nkOJ0bTRdT UYogZOud2GygGA5yAZdvk9dTI zqTUHdOTzpqKFbQB9FBTcqLNY mnxWus8FuTHiownLeskC0IhY9 MOJUZI3bLAOeTYZbHlEqHwYqy LSirGOobVltNytcaUH8PWtaEh npmH2fgALVIHUFRcxAKcdxpjO sCD6NLM7DQoWFGU84TzVzOQU1 EPyZL8IGoEM3Cbo6GAx5kIjsJ scyrxDieVZzAzPNgM2FNqmqQj eurNO3LSqtGkeqzC8fvYMLAZL LWryHMxcaatRxNV7ABG8YXS3P xHYdXCT9hNA4JNQTCifazJM5l PT3lD52YTZjGFQbzYHvVSxyP8 01DXQzMOxsGZe8svYxPQPjYtY pKXbvUSLnO11lu5BPd1SbRGWj g5naaTnfb8XihIYuLGxsYCWrg FYhBIybeX7bQrTih6lzjXg4SV nivdL2XMFukq8nsKfriU7xMPd 4VLkaZIEwB4FiQ1XiJWnpUGG7 MTAwMiBcXGRiICBPVlIgIiBDM lY4MeMkSbG4LHl7NJWSJoJdLr MgUAN9QXN8MoQfTJw8NDj5TBe SIrE2VrOiCCUhYFOnZUI7WHBz XRf9KBUyDRmiHOSzqQUnBEwyP nMgMTAgXFxmYiBcXGZsIFxcbm D2MSFkFElzWBNePjUdGUKSHhh hVAAqUPvmmPeekW3eARHyE72k w1WZl7PgHN7DBBt6ylTkgalmm C0oFVUrcpHvZFmmdWJfI8jfDc hwQaUcDjPmIOEVGP85bN1imQD zoE0qeINit7EoQYXzsRnwjYOt eSwgbGVmdCBheGlsbGFyeSBzZ F82tC6uqMYtcC2luUTuk1OqDU VbWGslmU34CMZoNYVbyCXwXVJ yupK2bYIhCU3nDjP3RKMhlWQ5 oWCuOF1eWmNiFVGuPVR5UVNcX RKBbiGnuRMwrC50NRusGNvgzJ 1us5jqyRAoeTzeoMamjq9pKBN iYW69OKrzOU54JKcrDS9eAHJk NZepGQ72gOQlwCrvz7RztUw0o GVkLiBcbGluZSBcbGluZSBTRU ARWH9QDJFPHDW2BHCeLCH3OcQ uKNheYFWLPogtSR12xYVdvDrj v9CyeLy9dGFgWZ5hDGFtELXcr XShnH9aftCzv3KtEyGuvvDvDV AiC5Juq52oTNAliAMdjCxlaaF tvzXjoJKgtACnAT80GTOsf7Sf m8VeJKztjwQyUdswaWpxNRTSG xlgvSbtOzQdoBFfEtIohkF3TZ UosVPbLOS7RM4bWPTmkvfxQNO wPXFtBHV5JUzumJ33bIRmLYIl MTZccGFyfVxwbGFpbiANCntcK qjmxMprw7PmzBRtKPbqVPPuKU WgMJelFWAtGM9UKsNeNRIyRjH 3QFXwCLp4HLf0ZS5WRnOwHFOc MMk2RpA8HJOjOSe6WVxrYI8XW PkoRnE0SDsuSZH7KMGfAZKkHQ QgMiBcXGYgQXJpYWwgXFxmcyA lKEFuXWQkKEwjLdigWYnnI02l zVzeoY9oCgnhofBkHUV8YKGqh iANClxwbGFpblxlcGljTmVzdE RvYzEgDQpcbHRycGFyXGxpbjB ccmluMCANClxsdHJjaFxiXGNm LJdlqrMrUVGusrPaglYhANt7o NYdYO3tOMFnTRE9sClqDZY0RZ KhCHE3VRN9sLnwRRF4IBJfuhK rqmAaZNo0sXNiPP7rZSCgFjTy TKZvk7Mktf69JRKygVLeHXivV JUgon1uSRBfZxaqGMmmpoz3pc UaVTS9EP3aCwMlvfXiLSajZeW mVucmSIDzE58vCIhumZtnzf5i twO9UCOhm7VyGcurKSw2lASkN U2aLKUkQEVzTXH2JUTxFDG7BJ RsAANfjYmpMJMlfDqpPTr0BQM 1Lh0zjPQfKG0vWChgbzDhIZnv slXcE0BZSOpAYnVOQ6ZFSmUGV VcoKV16wJIeoQfwk5XjcCl3jW TrNP7mODSrMZYcdTYkhT1hxqP ck3MaWcTgxoXoZPQzI5Aut50c ZXZhbHVhdGlvbiBhbmQgcGVyb QNqKO59ZGGfw4Fxb6FbRGfwxn UgSlhcbGluZSANClxlcGljTmV utYJoXyJrudP4ZFZfhZPsECG5 BN6oHMCzlhzcTUJlGXJuYPS9B PhgaT18zXTcVLQlASHvzYAcxW vwqCAptaSWLiykWnwvcMzrw3Q jdCBcXGlkIDUxMDAyIFxcZGIg VT7UScUlUZOtAdB5TTGaOVt1K Ut1HN4BSgGiUGFzIFa4HdY1SA QoITp0BRhiIW3DFUmoZoR6OZr sRyQ5QDIgPQXbDDCjMhOdFGXu QXJpYWwgXFxmcyAxMCBcXGZiI MuoZpnoIOedE43uiDrjwY9bTx hajfCtWEK1VCHnmoNTTjkgoVE pblxlcGljTmVzdERvYzEgDQpc bHRycGFyXGxpbjBccmluMCANC lxsdHJjaFxiXGNmMVxmczIwIF AeevZaxgTpXRp7rKKrGF9dXRP mIJZ3hZdqWQR7ROQqSLG1ZIW7 aIfaSBZ3NLCmsdBielVlXIj2w FMyCL8cYGAbTxPcPZXfb6Kaso 65ASZolOAhLMkdVZCgby0jWCX 7MGczJKsrhkc5psFcTFU1OYXr Nh5gw9MlVDLpE2UbBZkyRzSbK Q5wYTT8MImge5wjQ0HdyEZnk7 WarISrXBRwaV2zuLMbk9ViCEq uKmYluOXjZcMwhTDlUijqD54a SPVereVggsUnkFNbnYRqyVQ1E SQsBBkntL7xWCgguH2sTJFJY0 QKM58hS93OLVilYMXgKFIzONE gwIqrSMp0UQK8Dy7jqCRsTHIu ElN0rROzb0SwZ5ogQD4gGn6vR CUye9bsdpKxKJF2cL5qOXX6YV r5SXZtr69sTV1aPNTapf5vqrD ldLUicf9nPGLfMfkiwO2fNNbZ EOmfyqGxLDrcHAMmK59kg6KGs 1JjHYSwi0pjqWbmj0BreFXsAS xwUNHoeWReLVyulS3hEfIil4c hnYm8TQshqoS0UMLgjy4amItd aB0xOKlwb9uiFQH7QUYmiJQhf GOfRDqzwCtdyZ7iCiXtJul5YA psUUXsQ1NwE4ZclsQ9WPIsYXk uXGZzMTYgDQp9 [employer](s) k7dosQNlMQFpfEN6GyJjYPQgs (test code = 9841) 9qmg2TdzTSpoKJjECxmiZMosw Dzup46xHZ6gF73KL5tGSUgOfC 9NVMlqxN3Zdu3KUMaPDDsrAAz M440a0tkp2wifzJjrBA6kMszW SCesjdzRuY6HIjzYUHyofahLB l9XYbhDQNziDT6JCLqiRMfN5H uEKCmSV3ddou2XZE9XIysCPPh BwA6WRJbkCGcXDZvxXztIHikt 851RVK5NcPdVBSopsUqiBmnvJ 2jNxEbKCVRflhjFPS7KJM5tZ2 sJJSlr0JjYfPVZZOdbTOdbK== Disclaimer (test k2gcaPHeJRHzfXPlLsBoSYOtF code = 9844) VXbg8ubYBBqiJWzKrCaWcWwCx PxFajprZWbLCPcQcJfe1zln87 1dQXem3olRFFkHeD5lRMlNBYv pBHvU743HXHfJOemn9ljl0LsE XBxqANoh7Z5RBHWgkbrxPg7pB oeU52zu7Q8VegvC6ifBOCmTJK nR6GjLU3oEAGhMdo7NRC1FRZ2 PZLoGMImP4LbVO6sPLYeyNNjV Wv7y0eohSbiCCPjFYL2j4awOF wiuiQqCT4ism4isVz8f9wszwW wIYOfOPIeaDTGQNPgC7EfdWws Nz2yxFt8mOksXxedMXQ3Clj6F I2rjn56lln4zAfwKTNpcaxhIz D8EMgbKJRmwtixTGi1EIjaPXR qxIU2ZBZnxHEwG5QeEMYaEF5o lcf8TVY8ROaqAYJuCbH1KVVoq XXwSTYotBlhMChim952CZH3Sy GnZG7yL6Vqb5F6vJ7sxCLgQQU yaLEeYdRzWSEckh4qqVGgEQmb r7CbMVX5zmA7qNAcpFOyRGSrH L84Sygny8QaLuwuSWS0WAHorx Ovf0Kha3ccFsVgchIiW4cfH5F lEDBsLSKiJAKeLbHqibLby6Rv f4IeeZYqoUp3z9dqFHBbQDApm Iiea0ncUZM0DWAqK0E4uYUha3 uwGQzpXUQudIF0mfP8UJSywGR nJ2VwiT8cTVTtRQ7hsps2p1oe CJC4ZYxoFIUcNxC8mxH9NRSwr LAhXAQnoEnmNZatf856KUZ1Sc JfIHVna4PhX4WscZisX60wdFp pW33bRRJboNimpU0bhQxswU1v ZjBcZnMyNFxxbFxwbGFpblxmM LsnhdL4VSwirgabQLIjCEvzW6 hnEkYsQEQjaVjfKTczv5VjTKD qZRLlWtxlskW2HHXPu95lIEEv i1NzPMOvuO4prDDqIVipyeSfe QV8XNkutcPgAeSfddTiVDAsgM 9kMSKyVD6xULLaqaYrzm1zfxV dMJKwIAYvF5HzgmliiSztvmBr TRUaey0yyjKkKDZ3XERYRQ7RU TOeVVWyi02dBZIsaTxtdU4boH WhcbNfNIQgb6NckK0ppKOOGOX dE2ohUP4zFHmpo5PsbOVsyTKl aJE8OTNdn9ZhIbDroqTreZLpn LOmP7IolKegO9dfVIIpNVFrcr UmgHSwa8SzBBAtcXJ5tXPbQA2 RRiNAs41fUDRnGFAJgmTpXOXb hVkbpHS7jbB4wQ3pSdGKPdCnk WKucFPgNbbqIRPid885np9bts A4VYHmYQJqjqkun4EjUYQtNNZ hfZ40ZGOaWQUrdf2tpjtxsAZx exKhD7Fizbu0mA9nBDJlUKmjA GYxXGZzMjJcbGFuZzEwMzNcaG xmdMmvZPjlJcGvEGOyKTwcP2y cZjFcZnMyMlxwYXJ9 [facility] 00:00:00 Test Item Value Reference Range Interpretation Comments Mony (test code See Note Specimen for = 9114) genetic testing has been obtained, processed, and sent out to the reference laboratory. You r care team will contact you whe n the results are available. LIDA (test code = Create blood LDIA) draw at [facility] Glucose Iaimvl1409-82-30 03:54:03 Test Item Value Reference Interpretation Comments Range POC Glucose (test 149 mg/dL 70-99 H RN Notifie dCapillary code = 47325-5) blood sample s, e.g. obtained by fingerstick, ma y have inaccurate resu lts in patients with decreased perip heral blood flow. Met hod description: Al l results are werner sured using Electroch emistry test methodolog y. The glucose in the sample mixes with the reagents on the test strip. The reac tion produces an tana ctric current. The am ount of current produce d is proportional to the glucose concent ration in the blood. PO Sample Type (test Capillary code = 9554) Performing Lab (test [facility] Main Main [facility] code = 35172) [facility] MD Kendy perez Clinical [facility], [address] [facility], [place], [place] [address]; Uptwist Spinner: Trina Butt MD Lab Interpretation Abnormal (test code = 70369-4) [facility] Cancer QuinnMD COVID-19 (WILLY-CoV-2) PCR Gbpxvtxamnta2878-59-37 01:53:05 Test Item Value Reference Interpretation Comments Range COVID19 SARS Pre-OR Procedure Indication (test code = 08719) COVID19 SARS Result Not Detected Not Detected (test code = 88806-3) COVID19 SARS SARS-CoV-2 NOT Detected. Interpretation (test Reference Range: Not code = 27687) Detected Methodology: The [employer] RealTime SARS-CoV-2 assay is a qualitative real-time reverse civil design specialist polymerase chain reaction (fiscal analyst-PCR) test to detect RNA from SARS-CoV-2 in nasal, nasopharyngeal and oropharyngeal swabs from patients with signs and symptoms of infection who are suspected of COVID-19 by their health care provider. The [employer] RealTime SARS-CoV-2 performed on the light000 System is a dual target assay with primers and probes for the RdRp and N genes. Results must be interpreted within the context of all relevant clinical and laboratory findings, and epidemiological risk factors. Positive results are indicative of the presence of SARS-CoV-2 RNA; clinical correlation with patient history and other diagnostic information is necessary to determine patient infection status. Positive results do not rule out bacterial infection or co-infection with other viruses. Negative results do not preclude SARS-CoV-2 infection and should not be used as the sole basis for patient management decisions. The [employer] RealTime SARS-CoV-2 assay is for in vitro diagnostic use under FDA Emergency Use Authorization only. Testing is limited to laboratories certified under the Clinical Laboratory Improvement Amendments of 1987 (CLIA), 42U.S.C. 263a, to perform high complexity tests. The Test was performed by the CLIA-certified, high-complexity Molecular Diagnostics Laboratory (MDL) at [facility] under the Food and Drug Administration (FDA) s Emergency Use Authorization. Factsheet for patients: [email or web address] AbbottFactSheetPatientsFact sheet for healthcare providers: [email or web address] AbbottFactSheetHCP Test performed by:The [facility] Diagnostic [address] [place] [address] [facility] Outside Interpretation 2021-07-06 20:50:23 Test Item Value Reference Range Interpretation Comments Materials Received (test z1zwrBBmWQWqqEQsGcGf code = 9973) PVLgHLNsr2beIXOewVPh ZzEwMzNcZnRuYmpcdWMx ZSCtAiWba5lyq805rWNx k1urKFGpHaH7qYWjJGLg hRAyK126DJGbBRlxa9yc w1VyXDFhvVGvt5R9JBMK gizzhZf2ySyvZ51kk5A5 SfbfT7kmNXTdEVVlK0Oy ZJ8mKGTnElb3NLF5PXQ7 INMeXMJgV8QhNV1aLOMq uFBdQMn8a9kcnJbiFMWu HZA5o8qbAIeevyVgKJ9n qp3ekQi0f1vfeiGsZLNy NSQllJNMTYXvP6QsdZeg Rv6gjQv1fVdqFhteOCQ8 Gzw4CU0hnw39ucb5sFea SNBxhyzsSoU7BLzuKNCt clnuYZx6WVakBBAhyHds MFxtYXJncjcyMFxtYXJn xKY3VNVzhPJdO2OjWVId FLqpDPYvafj9IsGgMi0l zRBjwWphUCkzh3iaj6xd kVIbIqo4YQLiKbEnOomt EPhzm7Hur0jdEETywy9a YOU9qVHxcMoqc5Q9cZUk OHDnjEUyfvJiQFJbzp26 iMSkcOEavXVzsp6ysfKa aTYusOZtFTH8bCQmvqTi PISljJWgVHXyVJ7hdMJb XSKgnR4sjrlvSWNtEmIx wzugJLOdeAnqpgGyZt3o vJkkYWZ0MGfjH6kscR4w PiW9IMalH1mioL3kEFo5 LGzpbZL6PGCwmF1xSO7p vtmzi9irCzMyMX4nlafu i2buXvOhRM0iqmq8e6rm WRH3GYkuCGSrEnL9xbL8 NDBcaGVhZGVyeTcyMFxm y538BVX6UzCdEZHbt1Zf L5IluQkhY28akRvnD88c JCXreBjuvY7snSeclT2l LxSsJyGvOEa1zr59YOo6 mdbiwEvtZJm3eyOjAZYn JRW4CKLlpOCfYFMjA4r0 uvXnSVPrQZX2VWRpfDGx STAmJ5r1nsAjAYO6ZCm1 cnBhZGRmdDNcdHJwYWRk YjBcdHJwYWRkZmIzXHRy dZNhoZIdoKCphU7lhVsl GIQlgPKmfM2qXCI2GUMf cmgzMjBcdHJoZHJcbHRy uh34IDFeniIusCXhmTnr yFTvXPK8KPXxHPTzLWWm ZJB0CRWsMfEukjRnSJsl bGJyZHJiXGJyZHJzXGJy BMJ9WKUpPmZteqMpLHeq bGJyZHJsXGJyZHJzXGJy TRA6LNHuCiVyabJsABav bGJyZHJyXGJyZHJzXGJy WXE8FKMkEiSowkAaFMwo bHBhZHQxMFxjbHBhZGZ0 M4sjaPJsVUKdCUkryCJp YGCdU1ratONaGLewPGRi cGFkZmwzXGNscGFkYjBc L2wcFYPxSgSyA7CaoIi6 MDAwXGNsdmVydGFsdFxj lTNyCON5FQAnUYYpSYRh WLN4QFKzUiFmwtXpKGpi bGJyZHJiXGJyZHJzXGJy MBF6NPGtFmKbdjObGQjy bGJyZHJsXGJyZHJzXGJy DTX8ZYTpOtRrrcNiAYtw bGJyZHJyXGJyZHJzXGJy SXC9QOMkXqMbvsSuMUtw bHBhZHQxMFxjbHBhZGZ0 V6pbgGMwTELqXGzrfAZu FWObG7yssHNhKGsvJYVb cGFkZmwzXGNscGFkYjBc O9bbTABnVtHjX8CcbKv6 NjAwXGNsdmVydGFsdFxj cKEzBMN4FRWbOMShMWAd ZHT5CLDvIdSxtqQcLKvz bGJyZHJiXGJyZHJzXGJy DYM8HMBnYvUlweWyYIvm bGJyZHJsXGJyZHJzXGJy BKW6IDKbLyRnedLrSWnf bGJyZHJyXGJyZHJzXGJy MLG8KLCqLjGrbkFjSNtw bHBhZHQxMFxjbHBhZGZ0 B9bxbVGqOXYlDUwgwRPm RNVrR9xkpSIoHXpdHAKf cGFkZmwzXGNscGFkYjBc B9rjOEHyTeCpU7WffXe9 GyOuFEDvpcObqN26Jktd h9PmONJqKVC7HOjlAPzi bFxwbGFpblxmMVxmczIw CZykxfusWQQmZTisH3qu NtObURQrqKuyRRnyg4Mo XGYxXGNmMlxmczIwXGIg ZYLnIJCogI4qTdkdP1Nz pJ6qAVihVyyjU6fvSVKl a8VnjE3dCKoqhEPjnjhh MVxmczIwXGxhbmcxMDMz FDzkB0bzVfSyOYDekNnb RJlvn7ZsKHIwLUHhMyxz vcWkEZo1vsKfIBWgcQfn eMUpBVjyzgLfqDsoa0Gp aoAajWjyKYVwUWb2ydSa bmlifJk5sFAafUsySBPr dJvkaP6tArUuEyNgTGbp bGFpblxmMVxmczIwXGxh imtxBRSgYWjjU7sdWoFu YXInmJpjAJnyb0DjELBh BJQeZrbkwiPgUTHeL43l bGVjdGVkXHBsYWluXGYx XGZzMjBcbGFuZzEwMzNc aGljaFxmMVxkYmNoXGYx EDbhB4gfXuAjO3ZvCDIx VbEwoAJgF6qmV0QjjRwp YXJkXGludGJsXHNzcGFy UUX6fDZduqOgkOSysTIy THGpANpyKBU8gBJuyxdm aCYkjdtxQEwgkzQ5LQQr YWluXGYxXGZzMjBcbGFu ZzEwMzNcaGljaFxmMVxk QjZuJDPzYSbqM1kvFlGd O5UkFSKcBmLkLoVORMWf aXZlZFxwbGFpblxmMVxm czIwXGxhbmcxMDMzXGhp J5okHpAyWCJqqEqvEHlq j9DsRVBqBXFvWlvzlwTn FZy5pqTgMDIhlYbziZ66 Vvephj29CBUmv6foDPCc W0LwwKNhODFykXHcLKko MDhcdHJwYWRkZmwzXHRy cGFkZHIxMDhcdHJwYWRk ZnIzXHRycGFkZHQwXHRy jMKcIAR5H3d1pzZoSIPh TRg0jfYyVKIrUmYkxTUw WVG4EPl3VzymuhR8aOCw L1f9RmslihNgGMoxlWPe jq12AEVyteUgnGUwbQha pRAtBRJ3XNEpGYIrMDIi WUO1WHZtZcFmshNyEPvn bGJyZHJiXGJyZHJzXGJy TXZ1UBXcPySpqwBqHSbf bGJyZHJsXGJyZHJzXGJy CJW1NQJpAySdntIeUZhi bGJyZHJyXGJyZHJzXGJy JYZ9BOFhKeKgxdNpTEiq bHBhZHQxMFxjbHBhZGZ0 Q3brsIPlYKEsMLkqaAJq ZPMjC0gjcCEhQAhpXOYd cGFkZmwzXGNscGFkYjBc C4nwEXIvQwMwW8XegXq8 MDAwXGNsdmVydGFsdFxj tPLaITC9SZSmYZWyDJWc XXG1HBOtXgHsqpXpDSaw bGJyZHJiXGJyZHJzXGJy XXV0NBGbJrLwieNqGPno bGJyZHJsXGJyZHJzXGJy JDA2EUYfJfUnmmWzVSwk bGJyZHJyXGJyZHJzXGJy MLS3UDVfTjHxfyMjIUye bHBhZHQxMFxjbHBhZGZ0 W7mduZYjCXLwHClgxXMx OKMzM1bdpWGrQLdvPQBp cGFkZmwzXGNscGFkYjBc E9aeLAAfSfCuY7LqmOn8 NjAwXGNsdmVydGFsdFxj dJOoYNI2YOFwMCNqKLUp DAN0JHDrNcKqfkNgPSue bGJyZHJiXGJyZHJzXGJy YEL7QOLdVbNhpoFrNWst bGJyZHJsXGJyZHJzXGJy UGR4ZANhMqNuncLiQWsc bGJyZHJyXGJyZHJzXGJy YSV2UMPkNcWdhqClXWig bHBhZHQxMFxjbHBhZGZ0 C2kdoIDsNMLxIYinrCLl PRWzW9npyCKqNAybHRHb cGFkZmwzXGNscGFkYjBc C3ytCONfQpAmP4PwyVb8 QtVmUFXmvqBwdJ27Rqaq u8FpGDFdXPS2SZtjZIzg bFxwbGFpblxmMFxmczI0 XHBsYWluXGYxXGZzMjBc bGFuZzEwMzNcaGljaFxm WCuaOtXjMXHlSCzqB2wi QnHwB7DiFDTtGdCjTX5f FpU0SWQtTvalYVGyZkSN LuciYKRVLN8CK5FoSFMk VVNTXHBsYWluXGYxXGZz MjBcbGFuZzEwMzNcaGlj aFxmMVxkYmNoXGYxXGxv B1joPkHeG2IcGGEjEoJk mTFjS6wlF6QsoVvxOHDo XGludGJsXHNzcGFyYWF1 eENeuoRdnKtacPvbkF4e ZjBcZnMyNFxwbGFpblxm MVxmczIwXGxhbmcxMDMz CQaeX1cqWdTsBZJsoOal UOrzo0EiNSTmYANdHnij czIwIDEyLzgvMjAyMVxw bGFpblxmMVxmczIwXGxh sdjmKHXeBPzoC3vxIiSy KNPppVnuMDcmo3QuDMYn THDxQedxxzMlFBr9ozDk XGNlbGxccGFyZFxpbnRi bSfqv2ZqlnBluLgsAPJu XHFsXHBsYWluXGYwXGZz CbScjOddsK1gHlTaBtTr SCwtWW7zFDCgK4bjqRXf KTQgPZBtQ9gqXhBriN6q aFxmMVxjZjJcZnMyMCAx LzQvMjAyMlxwbGFpblxm MVxmczIwXGxhbmcxMDMz GOgjF1tpOnVyRSSqeGgv DFsdn1YeSBPdYNBiEfcm evAgFOu9pvBhLTNvcNti eP03Jfmrql90YUDcipWi c7EiMDCnHGY8NGuwGLep bFxwbGFpblxmMFxmczI0 XHBsYWluXGYxXGZzMjBc bGFuZzEwMzNcaGljaFxm CYkeHpXrQGLtAMygR1ai ZjFcZnMyMFxwYXJ9 Diagnosis (test code = d1ayrUDdKQZwfPG2RcQi 34) GQSfk2nyv6XmvMOmdAKs QTlhjUErolUuth70nHQ4 nI94QV0rIFXzYnS2HFRt hzY2Vrw2RKJyHVIzpXRs A737y5skg5sdlvFpqNX4 FAKzEGRdK5WbTU4mDYMr cPRmY9oyZLUdKGTfW9Xo XW1wTRToEwf0CII6RDn5 XHBhcGVydzEyMjQwXHBh aTJktPQ5IOOvYF5ylhco QHcvGFekWIHfpmA5XUKh rDYsH7FbFOVfDB8rfigt ZWM5YEbkUFFgMDX2TuEu SFEju5Wdkqw8UiXgqNDi ZFxwbGFpblxmczIwXGNm MSBPdXRzaWRlICgyMTpJ FfQ5NJYbHCXsRRMZDRCo VJADM9WIItblIDWDL8Bl ZZJxwOlmH6TzSPKwmhLs Qp46ZzQbXbPrQekyPFJj Q7GvGUOexikpcQstAQlx cJ04UzOmHUPyaACaccTs u7WmQTUyykcekF2vkojz iDd1nsOom9SiMO4uoVyv UAYtA82dQSGtGNTqqSLu PzbcsXM3YNoZFFAtDUYw bCAxLCBBMSBsZXZlbCAy LCBBMSBsZXZlbCAyMSwg CW0qECdKHdS7LEu3NCEn dvxmuJGapFX6RbzwXHAj cUgcBQMcBTjrdfY5QYDi QG2UYWQVCdDsVEMBJBCM BJBQJfNXCe0LTNprVM1D IWQIOWELIQOKHZ2PT5kP KUXyX8RVVZTtWM5VUROL PxlGVI7mBUvOFR9NJ9dM HjEPDtYONLEoUgLrV1JO YYBWAE3TEcWaETltFAFb vKq0HyAzttoaGWbldudc DDaeYlNhO6qrUdKxnAIf uSIfTCStbiLoN6BpKUTl Zrt1RGQeP5PqXXnltzRe gRYlRSYnbvOjpx9hLREm bjZyyaRrOM43DWzdKR30 bHRpcGxlIGNvcmVzIGFu ZCBtZWFzdXJlcyBhcHBy n0kexQO8XNw6TErhaY5u mB2kgHceurCezPOdVRot DOK5IIzehPmpTMtjhW4m NDQwIGNvcmUgbmVlZGxl HFMbl7QrjFChqANkrH7q ca3veYUlxE== Comment (test code = a0doyLErACNrnQX4PoZd 9835) AZYjf4pxo8AveDEifQOk SCadsXEdoqRtec15yDE1 tA75HF1oCGXsLrK0NVQo bjG7Jxt8HXNoUWGuyTQh U677i2gux2dogoUywSP9 TXPsTVEpX5DgQM0cBHBn tUSmX49yfVOvOYA9OQLe TWRuqNGuKCSyPMV0XUJv qVRmO0lzFTQsXE5yjpdc HXvxHPbmQVYyhMW3NIPc fZEaQ0KsDXKuSFotAATu jvb2PfWeTe9ntTCspHqv MFxwYXJkXHBsYWluXGZz PxWeX4VuTWT5Gc8fqUVq KPTghL36ou2hAORyaGfi YCOtJOD8PQrcqgUpzM07 DHCxAHGdmiVft8e0DOYg IPRbnC1cbFFaeOAoxF1q gAPpjhWwRg1bEUEOIV2p STTmOLSPWGIHGuavx8Ff rB7mcUolKySrciRwo7Ei d7PqR4ggKITqNUZ4hQ6b stGcACwcjmIibsHuhM7p zSPhlyExNu6oOYSbK6Xb qZQcxY3mMGPiVTFloI3p aN8lHW8eVQrruTGaCSfy HULvoqHzn7RutxAvy6b5 jLHkmKL9NKrswLantf41 gMPqPgUUuX6pnRs8wNCw zKZuHM8aodmlitSwSpJn aXMgbmVnYXRpdmUgYXJv yS9oJPIwHQGpjzCvq3h0 ADSyUGOylC7jtJRgJLBo nsDZdx7uzq7ivFoeL3Ed FTOlV3VedyUldVBmz1Nq gyXhcS59DKYaAUCzwdEf d5g6TPOdCTDzrX6mqAFn yJMgd4Hgf14vdQrfgF2w hZXyjnBcMg6uWPFgeQLp S7GjHNBdP1GwbW5cMXt+ IBDjLObzqP11BZBuh1h2 zDDzFUKpfsLpve2gFSB2 SODmowHaorRrQLK1r9Ib RPAwCFicEQ1rJAEgdWz2 x3OeaMBcx2XxSXFTJaPc oJFJGVCwSTDme9OxIEQg LS5kD8kzGuhvnRNfeY1h iBBqspNrtZ3uLNQnxRSj YhUvLS7cSYF3lQ5uJD56 R2msyE9xzPJrUEPdpcC1 uCHue4L8g6zuWTCiMXLv cnQsIEhFUjIgaXMgbmVn FXRvdnFkDz4wNUNjlCpv EkcoJQMzu86nRtspJihJ ZAGvYRZEHqgZYM4qSaFb BJVdexKkVvFbTmC2GAC8 AVHrX5Rft5SyCk81WEjC PdDxl8zujlGlvg9jkVJx JJQbLD5pOKKrbnexXkZt cGFyfQ== Biomarker Block(s) (test c7lwsGJyKIXlgBI5OpPr code = 9841) JGGku2wdz2CooMRraQFn PYqwsLOddgIuyh47dKQ8 jF01PL5hZDPsOkJ9XNDr zhZ2Pbp5MWHnIDUixCZr L320c0lpj6wyesDwfEZ1 YQImHPCgV9BhUN6cVPIs bGYxN84rbVCuCGT7JJKh IAIjuZIqOSNjRDB3CEEd eHLtN0epCDDjHV7psvhp GOdzSHnvZXMbcMA8TMHo yFHvK2VvKIErYXltXSTr coe7CpEoNi2npQMiuSud MFxwYXJkXHBsYWluXGZz MjAgUHJpbWFyeSBccGFy ESRzQaQoZPV5fC6zUIYo e2GuLtYnX6RiNQSdLhaM HRc9YwnrWwlbL6wiKFDp cGFyXGZpMFxjZjBccGFy XHBhcn0= Disclaimer (test code = g1ouaWMoQSUanDCaAiCi 9844) EDYgTMCvz6lsSUOejVSv ZzEwMzNcZnRuYmpcdWMx HSJnFfIjx7swm839jKAc y9jsGPRiNxI1bXRlPLBa aPNkY822QGFjLNrxj9gc r8DcDKTmbNDze8Y6MYNZ vqidfXp9qCvjS99oa2L2 AvonB5ywSKSiQZIlO7Ja UF4dXSSuJcc8INM2ZBP7 ODEeSFAwI7WdEZ8iDOKd pDCkWAi6g2mvfFnyGMDe RGV1i9wcATevrnVjNR2f pj0dhXz1u7ugheBeVFSq CBWyiZZDPWBdM9XulKlg Qm7inQi8bHnxGdxsLKD7 Arh0QC0bgw16eof0hPbb OKLeliwbUeI3MWimQUVk cmsoSOj8SGahPHVknPH0 UVDgiPLcJ4KuWOMtBE1x zin1LLO7DIegUKDzYrT4 NDBcaGVhZGVyeTcyMFxm a502CEE8PiObHQ2bE8Tj a7X5pR7tkDWcCNBeiPAf DqGeMMCqsp1luXZzWKjt z1QbJEM4upP0qSXcoJGm RAPiWO55Okkjm8AiXfrw POC8NJYeqxZzz8Vpz3wh EwKyecMkK4kkH7TjRTCz NHQpDFWkIjXbonJbj5Rg v4ZwiDYngZh2f3mwJWVe KKKxrCksw0mbKVM6MKBk V3V4eLJis5giVFwwGZCp qQF9ehM6KSPrwSZvD9Vv aF8xHROpXF2jzhi1b2fl QCO0AWfcIDMqRbU6tdA2 NDBcaGVhZGVyeTcyMFxm n050YRT0EdVmYPMrc6Wa F3KgiMsnW83goPxzD87b DRDujVchnV1fxWhkwD9l ZjBcZnMyNFxxbFxwbGFp ugthIBqpenY8JLcqctbb AEJfJRpfL3eaOoRpMKZy yNutUZiwe0MeRDVzIAKa FpuxbrS9WMMYv09oGLGg s3SiURFsxI1xoWAzINmo ldRpqGG5MEpefnOuCzCu tzJtJGStwD5hKWBeWH2u AXXzteNqxy9xmcPrDOSc NILwQ0RiolpjfLmfrrIs CJAckg3qwiNxEOY1OWSC TU6ZLTOxUIGkq84rGVFw nZfuqW8ajPApmiSpIRPa u8WwnT0yxMGNQOWfS7wt PY4eLGkxu4GuzNMusASp qNW4YQCfx2SlBhXuyiVn wTKpnLUhZ5HhiEbyN2yg SXLvAWFpflKthAEie0Mm XBSgpWI4fTEtJG3ALhBM d85xLKPzMTWUrwBdRYEr fVqrfFF3axY2hK2bQgEX ZiBhcHBsaWNhYmxlLCBj h047rk6zzyG4ZVWcJAZj hlqvo4HsMYZnGQWirI58 LRCfNLXbpa5wbvwmuZGx gySpP7Qunog6oN7gGZUh YWluXGYxXGZzMjJcbGFu ZzEwMzNcaGljaFxmMVxk MgFrOWZvDQeyG5djZnGm ZnMyMlxwYXJ9 [facility] QuinnHemoglobin [id number] 23:24:58 Test Item Value Reference Range Interpretation Comments A1C (test code = 5.2 % 4.3-5.6 HbA1c value s >=6.5% are 4632) diagnostic of d iabetes mellitus.Diagno sis should be confirmed by repeat testing.Therape utic Action suggested: >8.0 % HbA1c; Goal oftherapy: <7.0% HbA1c [facility] QuinnUS Breast Complete [id number] 17:20:58 Test Item Value Reference Interpretation Comments Range Radiology Study observation (narrative) (test code = 38610-4) IMP (test code = Unifocal left breast IMP) malignancy. No regional lymph adenopathy by ultrasound. Recommend appropriate evaluation and treatment of this known malignancy. Findings were discussed with Mr. Cantrell at the time of the exam. BI-RADS Category 6:Known Biopsy Proven Malignancy PXN (test code = Ileana So MD - PXN) 06/23/2021 CLINICAL INDICATION:Patient is a 70 year old male and is seen for breast cancer FILMS COMPAREDThe present examination has been compared to prior imaging studies performed atan outside location ultrasound on 06/01/2021 and ultrasound guided biopsy on06/09/2021. Images were obtained in multiple scanning planes. Real-time sonographic imaging of the left breast (including all 4 quadrants andretroareolar region) was performed. Real-time sonographic imaging of the leftregional geovanny basins including ultrasound of the chest/mediastinum to evaluatethe axillary (level I,II,III) and internal mammary regions was performed.Real-time sonographic imaging of the right breast (limited to less than 4quadrants) of the right retroareolar region was performed. Left Breast:There is an irregular anti-parallel hypoechoic mass with angular marginsmeasuring 2.2 x 1.8 x 1.3 centimeters in the left breast outer hemisphere at 3o'clock located 2 centimeters from the nipple. This represents the known biopsyproven malignancy. No findings to suggest nipple, skin or pectoralisinvolvement. No additional suspicious finding are identified in left breast. Left Regional Geovanny Basins: No axillary (level I, II, III) or internal mammarylymph adenopathy is identified. Right Breast (targeted):Targeted imaging of the retroareolar right breast demonstrates no suspiciousmass or other finding. The findings noted mammographically in the bilateralretroareolar regions, right greater than left are consistent with gynecomastia. IMPRESSION:Unifocal left breast malignancy. No regional lymph adenopathy by ultrasound. Recommend appropriate evaluation and treatment of this known malignancy. Findings were discussed with Mr. Cantrell at the time of the exam. BI-RADS Category 6:Known Biopsy Proven Malignancy Lab Interpretation Abnormal (test code = 78162-7) [facility] Chest for Breast Ultrasound (Add-on Only)2021-06-23 17:20:58 Test Item Value Reference Interpretation Comments Range Radiology Study observation (narrative) (test code = 09024-9) IMP (test code = Unifocal left breast IMP) malignancy. No regional lymph adenopathy by ultrasound. Recommend appropriate evaluation and treatment of this known malignancy. Findings were discussed with Mr. Cantrell at the time of the exam. BI-RADS Category 6:Known Biopsy Proven Malignancy PXN (test code = Ileana So MD - PXN) 06/23/2021 CLINICAL INDICATION:Patient is a 70 year old male and is seen for breast cancer FILMS COMPAREDThe present examination has been compared to prior imaging studies performed atan outside location ultrasound on 06/01/2021 and ultrasound guided biopsy on06/09/2021. Images were obtained in multiple scanning planes. Real-time sonographic imaging of the left breast (including all 4 quadrants andretroareolar region) was performed. Real-time sonographic imaging of the leftregional geovanny basins including ultrasound of the chest/mediastinum to evaluatethe axillary (level I,II,III) and internal mammary regions was performed.Real-time sonographic imaging of the right breast (limited to less than 4quadrants) of the right retroareolar region was performed. Left Breast:There is an irregular anti-parallel hypoechoic mass with angular marginsmeasuring 2.2 x 1.8 x 1.3 centimeters in the left breast outer hemisphere at 3o'clock located 2 centimeters from the nipple. This represents the known biopsyproven malignancy. No findings to suggest nipple, skin or pectoralisinvolvement. No additional suspicious finding are identified in left breast. Left Regional Geovanny Basins: No axillary (level I, II, III) or internal mammarylymph adenopathy is identified. Right Breast (targeted):Targeted imaging of the retroareolar right breast demonstrates no suspiciousmass or other finding. The findings noted mammographically in the bilateralretroareolar regions, right greater than left are consistent with gynecomastia. IMPRESSION:Unifocal left breast malignancy. No regional lymph adenopathy by ultrasound. Recommend appropriate evaluation and treatment of this known malignancy. Findings were discussed with Shena Cantrell at the time of the exam. BI-RADS Category 6:Known Biopsy Proven Malignancy Lab Interpretation Abnormal (test code = 60693-1) [facility] Breast Limited [id number] 17:20:58 Test Item Value Reference Interpretation Comments Range Radiology Study observation (narrative) (test code = 16078-2) IMP (test code = Unifocal left breast IMP) malignancy. No regional lymph adenopathy by ultrasound. Recommend appropriate evaluation and treatment of this known malignancy. Findings were discussed with Shena Cantrell at the time of the exam. BI-RADS Category 6:Known Biopsy Proven Malignancy PXN (test code = Ileana So MD - PXN) 06/23/2021 CLINICAL INDICATION:Patient is a 70 year old male and is seen for breast cancer FILMS COMPAREDThe present examination has been compared to prior imaging studies performed atan outside location ultrasound on 06/01/2021 and ultrasound guided biopsy on06/09/2021. Images were obtained in multiple scanning planes. Real-time sonographic imaging of the left breast (including all 4 quadrants andretroareolar region) was performed. Real-time sonographic imaging of the leftregional geovanny basins including ultrasound of the chest/mediastinum to evaluatethe axillary (level I,II,III) and internal mammary regions was performed.Real-time sonographic imaging of the right breast (limited to less than 4quadrants) of the right retroareolar region was performed. Left Breast:There is an irregular anti-parallel hypoechoic mass with angular marginsmeasuring 2.2 x 1.8 x 1.3 centimeters in the left breast outer hemisphere at 3o'clock located 2 centimeters from the nipple. This represents the known biopsyproven malignancy. No findings to suggest nipple, skin or pectoralisinvolvement. No additional suspicious finding are identified in left breast. Left Regional Geovanny Basins: No axillary (level I, II, III) or internal mammarylymph adenopathy is identified. Right Breast (targeted):Targeted imaging of the retroareolar right breast demonstrates no suspiciousmass or other finding. The findings noted mammographically in the bilateralretroareolar regions, right greater than left are consistent with gynecomastia. IMPRESSION:Unifocal left breast malignancy. No regional lymph adenopathy by ultrasound. Recommend appropriate evaluation and treatment of this known malignancy. Findings were discussed with Mr. Cantrell at the time of the exam. BI-RADS Category 6:Known Biopsy Proven Malignancy Lab Interpretation Abnormal (test code = 35778-9) [facility] QuinnMammography Digital Diagnostic Bilateral with [id number] 17:11:53 Test Item Value Reference Range Interpretation Comments Radiology Study observation (narrative) (test code = 34666-6) IMP (test code = IMP) 1: Mass in the left breast outer hemisphere at 3 o'clock located 2 centimetersfrom the nipple is known biopsy-proven malignancy. Ultrasound is recommended forstaging. 2: Gynecomastias in both breasts are benign. BI-RADS Category 6:Known Biopsy Proven Malignancy PXN (test code = PXN) Ileana So MD - 06/23/2021 CLINICAL INDICATION:Patient is a 70 year old male and is seen for breast cancer MAMMO DIGITAL DIAGNOSTIC BILATERAL W TOMODigital Mammogram evaluated with Computer Aided Detection (CAD). COMPARISON:The present examination has been compared to a prior imaging study performed atan outside location on 06/01/2021. FINDINGS:The breasts are almost entirely fatty. 1: There is a high density, irregular mass measuring 1.9 x 1.5 x 1.4centimeters with indistinct margins and associated amorphous and coarseheterogeneous calcifications and post biopsy clip in the left breast outerhemisphere at 3 o'clock located 2 centimeters from the nipple. This findingrepresents the known malignancy. 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 No findings to suggest skin, nipple orpectoralis muscle involvement 2: There is gynecomastia in both breasts. Tomosynthesis performed in CC and MLO projections. IMPRESSION:1: Mass in the left breast outer hemisphere at 3 o'clock located 2 centimetersfrom the nipple is known biopsy-proven malignancy. Ultrasound is recommended forstaging. 2: Gynecomastias in both breasts are benign. BI-RADS Category 6:Known Biopsy Proven Malignancy Lab Interpretation Abnormal (test code = 19715-8) [facility] QuinnPOCT [id number] 12:45:00 Test Item Value Reference Range Interpretation Comments POCT Glu (age>30days) (test code = 138 mg/dL 70-110 A 3342) Lab Interpretation (test code = Abnormal 81274-3) [facility]
[2022-03-09 16:35] LABS: Absolute Lymphocytes (CBC) 1.7 K/uL (0.7-4.9); Hematocrit 41.7 % (39.6-49.0); Lymphocytes % 35.3 % (15.3-44.8); MCV 85.7 fL (80-100); RBC Red Blood Cell Count 4.87 M/uL (4.33-5.43)
[2022-03-09 16:58] LABS: Potassium 3.8 mmol/L (3.5-5.1)
--- NOTE | 2022-03-09 17:35 | RAD REPORT ---
EXAM DESCRIPTION: RAD - Chest Single View - 03/09/2022 5:26 pm CLINICAL HISTORY: CHEST PAIN Chest pain. COMPARISON: No comparisons FINDINGS: Portable technique limits examination quality. The lungs are grossly clear. The heart is normal in size. No displaced fractures. IMPRESSION: No acute intrathoracic process suspected.
--- NOTE | 2022-03-09 20:11 | EDPHYS ---
Physician Documentation [facility] Name: Cullen Cantrell Age: 71 yrs Sex: Male : 1950 Arrival Date: 03/09/2022 Time: 15:45 Bed 20 Private MD: Bautista Cohen R ED Physician Chang Jama HPI: 03/09 16:18 This 71 yrs old Black Male presents to ER via Ambulatory with complaints of Chest Pain, ms3 Irregular Pulse. 16:18 71-year-old mal with past medical history of hypertension, breast cancer presents with ms3 his for a substernal pressure that was rated a 5/10. Patient states he has had 2 episodes that lasted minutes. Patient states first episode occurred at 1:30 PM. Patient denies nausea, vomiting, shortness of breath.. Historical: - Allergies: 15:58 No Known Allergies; jh6 - PMHx: 15:58 Hypertensive disorder; [facility] - Immunization history:: Adult Immunizations up to date. - Social history:: Smoking status: Patient denies any tobacco usage or history of. ROS: 16:18 Constitutional: Negative for fever, and chills. Neck: Negative for injury, pain, and ms3 swelling, Respiratory: Negative for shortness of breath, cough, wheezing, and pleuritic chest pain, Abdomen/GI: Negative for abdominal pain, nausea, vomiting, diarrhea, and constipation. 16:18 Cardiovascular: Positive for chest pain. 16:18 All other systems are negative. Exam: 16:02 ECG was reviewed by the Attending Physician. ms3 16:18 Constitutional: This is a well developed, well nourished patient who is awake, alert, ms3 and in no acute distress. Neck: Trachea midline, no cervical lymphadenopathy. Supple, full range of motion without nuchal rigidity, or vertebral point tenderness. No Meningismus. Chest/axilla: Normal chest wall appearance and motion. Nontender with no deformity. Cardiovascular: Regular rate and rhythm with a normal S1 and S2. No gallops, murmurs, or rubs. Normal PMI, no JVD. No pulse deficits. Respiratory: Lungs have equal breath sounds bilaterally, clear to auscultation and percussion. No rales, rhonchi or wheezes noted. No increased work of breathing, no retractions or nasal flaring. Abdomen/GI: Soft, non-tender, with normal bowel sounds. No distension or tympany. No guarding or rebound. No evidence of tenderness throughout. Skin: Warm, dry with normal turgor. Normal color with no rashes, no lesions, and no evidence of cellulitis. MS/ Extremity: Pulses equal, no cyanosis. Neurovascular intact. Full, normal range of motion. Psych: Awake, alert, with orientation to person, place and time. Behavior, mood, and affect are within normal limits. Vital Signs: 15:55 BP 132 / 70; Pulse 97; Resp 18; Temp 98.4(O); Pulse Ox 98% on R/A; Weight 129.73 kg; 6 Height 6 ft. 4 in. (193.04 cm); Pain 0/10; 19:36 BP 132 / 70; Pulse 79; Resp 18; Pulse Ox 99% ; Pain 0/10; ha1 15:55 Body Mass Index 34.81 (129.73 kg, 193.04 cm) 6 MDM: 16:08 Patient medically screened. ms3 16:18 Differential diagnosis: abnormal EKG, acute myocardial infarction, chest wall pain, ms3 pneumonia. 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 Counseling: I had a detailed discussion with the patient and/or guardian regarding: the historical points, exam findings, and any diagnostic results supporting the discharge/admit diagnosis, lab results, radiology results, the need for outpatient follow up, to return to the emergency department if symptoms worsen or persist or if there are any questions or concerns that arise at home. Special discussion: Based on the patient's history, exam, and Dx evaluation, there is no indication for emergent intervention or inpatient Tx. It is understood by the patient/guardian that if the Sx's persist or worsen they need to return immediately for re-evaluation. I discussed with the patient/guardian in detail that at this point there is no indication for admission to the hospital. It is understood, however, that if the symptoms persist or worsen the patient needs to return immediately for re-evaluation. ED course: Signed out to me by Dr. Melgar, plan is to dc home with pcp and cardiology f/u if repeat trop neg.. 03/09 16:11 Order name: Basic Metabolic Panel; Complete Time: 17:07 ms3 03/09 16:11 Order name: CBC with Diff; Complete Time: 17:07 ms3 03/09 16:11 Order name: Troponin HS; Complete Time: 17:07 ms3 03/09 16:11 Order name: XRAY Chest (1 view); Complete Time: 17:44 ms3 03/09 16:11 Order name: EKG; Complete Time: 16:11 ms3 03/09 18:37 Order name: Troponin High Sensitivity: To be done at 1929; Complete Time: 20:10 ms3 03/09 16:11 Order name: Cardiac monitoring; Complete Time: 16:24 ms3 03/09 16:11 Order name: EKG - Nurse/Tech; Complete Time: 16:24 ms3 03/09 16:11 Order name: IV Saline Lock; Complete Time: 16:24 ms3 03/09 16:11 Order name: Labs collected and sent; Complete Time: 16:24 ms3 03/09 16:11 Order name: O2 Per Protocol; Complete Time: 16:24 ms3 03/09 16:11 Order name: O2 Sat Monitoring; Complete Time: 16:24 ms3 03/09 17:33 Order name: Repeat Cardiac Enzymes at: Troponin 3 hours after intitial; Complete Time: ms3 19:37 EC:02 Rate is 84 beats/min. Rhythm is regular. QRS [place] is Normal. [place] interval is normal. ms3 Clinical impression: Normal ECG. Interpreted by me. Reviewed by me. Administered Medications: No medications were administered Disposition Summary: 03/09/22 20:10 Discharge Ordered Location: Home rn Problem: new rn Symptoms: have improved rn Condition: Stable rn Diagnosis - Chest pain, unspecified rn Followup: rn - With: Wander Reyes MD - When: As needed - Reason: Recheck today's complaints, Re-evaluation by your physician Discharge Instructions: - Discharge Summary Sheet rn - Nonspecific Chest Pain, Adult rn - Pain Without a Known Cause rn Forms: - Medication Reconciliation Form rn - Thank You Letter rn - Antibiotic training intern - Prescription Opioid Use rn Signatures: Dispatcher [employer] Chang Moore MD MD rn Sims, Marcus, DO DO ms3 Alba Boo RN RN jh6
--- NOTE | 2022-03-09 20:11 | ER ---
Nurse's Notes [facility] Name: Cullen Cantrell Age: 71 yrs Sex: Male : 1950 Arrival Date: 03/09/2022 Time: 15:45 Bed 20 Private MD: Bautista Cohen R Diagnosis: Chest pain, unspecified Presentation: 03/09 15:55 Chief complaint: Patient states: chest pressure sudden onset that lasted aprox 10-15 jh6 min. Stated that is felt like he had something stuck in his throat but was not eating. Pt has no complaints at this time. Coronavirus screen: Vaccine status: Patient reports receiving the 2nd dose of the covid vaccine. Ebola Screen: Patient negative for fever greater than or equal to 101.5 degrees Fahrenheit, and additional compatible Ebola Virus Disease symptoms Patient denies exposure to infectious person. Patient denies travel to an Ebola-affected area in the 21 days before illness onset. Initial Sepsis Screen: Does the patient meet any 2 criteria? No. Patient's initial sepsis screen is negative. Does the patient have a suspected source of infection? No. Patient's initial sepsis screen is negative. Risk Assessment: Do you want to hurt yourself or someone else? Patient reports no desire to harm self or others. Onset of symptoms was March 09, 2022. 15:55 Method Of Arrival: Ambulatory [facility] 15:55 Acuity: FOUZIA 2 6 Triage Assessment: 15:59 General: Appears in no apparent distress. Behavior is calm, cooperative. Pain: Denies 6 pain. Cardiovascular: No deficits noted. Reports chest pain, Denies fatigue, nausea, syncope, vomiting, Pulses are all present. Edema is absent. Rhythm is sinus rhythm Chest pain is denied. Historical: - Allergies: 15:58 No Known Allergies; jh6 - PMHx: 15:58 Hypertensive disorder; 6 - Immunization history:: Adult Immunizations up to date. - Social history:: Smoking status: Patient denies any tobacco usage or history of. Screenin:00 Abuse screen: Denies threats or abuse. Denies injuries from another. Nutritional 6 screening: No deficits noted. Tuberculosis screening: No symptoms or risk factors identified. Fall Risk None identified. Assessment: 16:25 General: Appears in no apparent distress. Behavior is calm, cooperative. Pain: Denies 6 pain. 16:27 Pain: Pain does not radiate. jh6 19:34 General: Appears in no apparent distress. Behavior is calm, cooperative. Pain: Denies ha1 pain. Neuro: Level of Consciousness is awake, alert, obeys commands, Oriented to person, place, time, situation, Speech is normal. Cardiovascular: Capillary refill < 3 seconds Patient's skin is warm and dry. Rhythm is sinus rhythm. Respiratory: Airway is patent Trachea midline Respiratory effort is even, unlabored, Respiratory pattern is regular, symmetrical. GI: No signs and/or symptoms were reported involving the gastrointestinal system. : No signs and/or symptoms were reported regarding the genitourinary system. EENT: No deficits noted. No signs and/or symptoms were reported regarding the EENT system. Derm: No signs and/or symptoms reported regarding the dermatologic system. Skin is healthy with good turgor. Musculoskeletal: Range of motion: intact in all extremities. 20:25 Pain: Pain began. ha1 Vital Signs: 15:55 BP 132 / 70; Pulse 97; Resp 18; Temp 98.4(O); Pulse Ox 98% on R/A; Weight 129.73 kg; jh6 Height 6 ft. 4 in. (193.04 cm); Pain 0/10; 19:36 BP 132 / 70; Pulse 79; Resp 18; Pulse Ox 99% ; Pain 0/10; ha1 15:55 Body Mass Index 34.81 (129.73 kg, 193.04 cm) 6 ED Course: 15:45 Patient arrived in ED. am2 15:45 Bautista Cohen MD is Private Physician. am2 15:55 Alba Boo, JANELLE is Primary Nurse. jh6 15:57 Triage completed. jh6 16:00 Carlos Melgar DO is Attending Physician. ms3 16:24 No provider procedures requiring assistance completed. Inserted saline lock: 20 gauge 6 in right antecubital area, using aseptic technique. Blood collected. Patient maintains SpO2 saturation greater than 95% on room air. 16:25 Placed in gown. Bed in low position. Call light in reach. Side rails up X 1. Adult w/ jh6 patient. Client placed on continuous cardiac and pulse oximetry monitoring. NIBP monitoring applied. 16:27 Arm band placed on left wrist. jh6 17:28 XRAY Chest (1 view) In Process Unspecified. EDMS 19:48 Attending Physician role handed off by Carlos Melgar DO rn 19:48 Chang Jama MD is Attending Physician. rn 20:10 Wander Reyes MD is Referral Physician. rn 20:24 IV discontinued, intact, bleeding controlled, No redness/swelling at site. Pressure ha1 dressing applied. Administered Medications: No medications were administered Medication: 20:25 VIS not applicable for this client. ha1 Outcome: 20:10 Discharge ordered by . rn 20:24 Discharged to home ambulatory, with family. ha1 20:24 Condition: stable 20:24 Discharge instructions given to patient, family, Instructed on discharge instructions, follow up and referral plans. Demonstrated understanding of instructions, follow-up care. 20:25 Patient left the ED. ha1 Signatures: Dispatcher [employer] EDLA Chang Jama MD MD rn Moreno, Amanda am2 Carlos Melgar DO DO ms3 Alba Boo RN RN 6 Lorena Morales, RN RN ha1
[2022-03-09 22:23] VITALS: BP 132/70; TEMP 98.4
[2022-03-09 22:25] VITALS: O2SAT 99
--- NOTE | 2022-03-10 10:53 | EKG ---
Test Date: 2022-03-09 Test Time: 16:02:11 Program Management Intern: [place] MEASUREMENT RESULTS: Intervals: Rate: 84 ID: [id number] QRSD: 92 QT: 358 QTc: 423 [place]: P: 35 ID: [id number] QRS: 13 T: 21 INTERPRETIVE STATEMENTS: Normal sinus rhythm Normal ECG Compared to ECG 03/13/2015 22:06:53 No significant changes Electronically Signed On 03-10-22 10:50:18 CDT by Wander Reyes
== END 2022-03-09 20:25 | disposition home or self-care (01) ==
LOC: ER 15:42
DX: R07.89 Other chest pain (principal); I10 Essential (primary) hypertension
CPT/HCPCS: 36415; 71045; 80048; 84484; 85025; 93005; 99284